=== PATIENT | male | born 1965 | race Caucasian/White ===

== ENCOUNTER 2024-09-30 10:20 | Day surgery (SDC) | payer MEDICARE, OTHER ==
[2024-09-30] MEDS: IV FLUID CONTINUATION 1,000 ML IV ONE ×2 (07:51→10:37)
[~2024-09-30 10:20] MED LIST: LACTATED RINGERS 1,000 ML IV SCH; LIDOCAINE 1% (10MG/ML) FOR IV START INTRADERMA PRN
[2024-09-30] MEDS ORDERED: LIDOCAINE 2% (PF) 20 MG/ML 5 ML VIAL ONE (11:18)
[2024-09-30] MEDS ORDERED: fentaNYL (PF) 50 MCG/ML 2 ML AMP ONE (11:18)
[2024-09-30] MEDS ORDERED: PROPOFOL 10 MG/ML 20 ML VIAL IV ONE (11:18)
--- NOTE | 2024-09-30 11:33 | P.PCN ---
Date of Procedure: 09/30/24 Procedure(s) Performed: PREOPERATIVE DIAGNOSIS: Malfunctioning PEG tube, dysphagia, malnutrition POSTOPERATIVE DIAGNOSIS: Same PROCEDURE: EGD with PEG tube replacement ANESTHESIA: MAC SURGEON: Daniel Oneill M.D. SPECIMENS: None ENDOSCOPIC PROCEDURE: The patient was placed on the endoscopy table in the left decubitus position. The Olympus gastroscope was inserted in the oropharynx and passed under direct visualization to the third portion of the duodenum. The duodenum was free of abnormalities or obstruction. The pylorus was patent. The patient's previous PEG tube was present in the anterior aspect of the antrum. This was removed without difficulty. Using that same opening a new nonballoon 2 0 Icelandic replacement tube was inserted. The clamp and the dual port feeding adapter was applied. The bolster was tightened appropriately. The proximal stomach appeared normal. The patient's esophagus had retained food like material within it but otherwise normal. The patient was taken to the recovery room in stable condition per anesthesia guidelines. RECOMMENDATIONS: Resume diet and tube feeds.
[2024-09-30 12:42] VITALS: PULSE 45
[2024-09-30 12:54] VITALS: BP 147/82; RESP 18
== END 2024-09-30 13:00 | disposition home or self-care (01) ==
LOC: ORWHC2ENDO 10:20
PROVIDERS: ATTEND Surgery
DX: K94.23 Gastrostomy malfunction (principal); K21.9 Gastro-esophageal reflux disease without esophagitis; C06.9 Malignant neoplasm of mouth, unspecified; I10 Essential (primary) hypertension; F41.9 Anxiety disorder, unspecified; Z87.891 Personal history of nicotine dependence; Z85.01 Personal history of malignant neoplasm of esophagus; Z88.6 Allergy status to analgesic agent; Z79.899 Other long term (current) drug therapy
CPT/HCPCS: 43246; J3010; J2704; J2003

== ENCOUNTER 2025-02-04 00:47 | Inpatient (IN) | payer MEDICARE, OTHER ==
--- NOTE | 2025-02-04 01:00 | ED ---
SOB HPI - General Chief Complaint: Shortness of Breath Stated Complaint: LUCILA Time Seen by Provider: 02/04/25 00:50 Source: patient, RN notes reviewed, old records reviewed Mode of arrival: EMS Limitations: no limitations - History of Present Illness Initial Comments: This is a 59-year-old male to ER for evaluation recent hospital admission at other facility was significant for pneumonia. Patient's breathing history of with low oxygen at home requiring increased oxygen requirements patient is on significant shortness of breath without chest pain denying current fevers MD Complaint: shortness of breath, "asthma attack" -: days(s) Severity: severe Severity scale (1-10): 9 Consistency: constant Improves With: nothing Worsens With: exertion Known History Of: COPD, recurrent pneumonia, other (History of cancer) Context: recent URI, recent illness Associated Symptoms: cough, sputum production Treatments Prior to Arrival: oxygen - Related Data Home Medications Medication Instructions Recorded Confirmed buPROPion HCL [Wellbutrin XL] 300 mg PO HS 01/30/14 02/04/25 Escitalopram [Lexapro] 20 mg PO HS 04/16/23 02/04/25 MORPHINE ORAL ARIAN CONC 20mg/mL 5 mg PO Q6HR PRN 04/16/23 02/04/25 [Roxanol Oral Soln Conc 20MG/ML] Morphine Sulfate [Ms Contin] 30 mg PO BID 04/16/23 02/04/25 Bisoprolol-Hctz 10-6.25 mg [Ziac 1 tab PO BID 09/30/24 02/04/25 10-6.25 MG] ARIPiprazole [Abilify] 2 mg PO HS 02/04/25 02/04/25 Apixaban [Eliquis] 5 mg PO BID 02/04/25 02/04/25 Morphine Sulfate ER [Ms Contin] 15 mg PO BID 02/04/25 02/04/25 QUEtiapine [SEROquel] 25 mg PO HS 02/04/25 02/04/25 Allergies Allergy/AdvReac Type Severity Reaction Status Date / Time duloxetine [From Cymbalta] AdvReac Confusion Verified 02/04/25 09:54 Review of Systems ROS Statement: Those systems with pertinent positive or pertinent negative responses have been documented in the HPI. ROS Other: All systems not noted in ROS Statement are negative. Past Medical History Past Medical History: Cancer, GERD/Reflux, Hypertension Additional Past Medical History / Comment(s): HX ORAL CANCER 2009, HIATAL HERNIA cancer esophagus ge junction peg tube inserted feb 2022. FAMILY HHX UNKNOWN-PT ADOPTED infusions immunotherapy keytruda History of Any Multi-Drug Resistant Organisms: None Reported Past Surgical History: Back Surgery, Cholecystectomy, Hernia Repair, Orthopedic Surgery Additional Past Surgical History / Comment(s): EGD, ORAL SURGERY FOR CANCER WITH LYMPHNODES REMOVED FROM MOUTH AND NECK peg placed 2021 rt shoulder roatator cuff repair. Past Anesthesia/Blood Transfusion Reactions: No Reported Reaction Additional Past Anesthesia/Blood Transfusion Reaction / Comment(s): no blood transfusion Past Psychological History: Depression Smoking Status: Former smoker - Past Family History Father Family Medical History: Unable to Obtain Additional Family Medical History / Comment(s): adopted General Exam Limitations: no limitations General appearance: alert, in no apparent distress, anxious, in distress Head exam: Present: atraumatic, normocephalic, normal inspection Eye exam: Present: normal appearance, PERRL, EOMI. Absent: scleral icterus, conjunctival injection, periorbital swelling ENT exam: Present: normal exam, mucous membranes moist Neck exam: Present: normal inspection. Absent: tenderness, meningismus, lymphadenopathy Respiratory exam: Present: respiratory distress, wheezes, rhonchi, accessory muscle use, decreased breath sounds, prolonged expiratory. Absent: rales, stridor Cardiovascular Exam: Present: regular rate, normal rhythm, normal heart sounds. Absent: systolic murmur, diastolic murmur, rubs, gallop, clicks GI/Abdominal exam: Present: soft, normal bowel sounds. Absent: distended, tenderness, guarding, rebound, rigid Extremities exam: Present: normal inspection, full ROM, normal capillary refill. Absent: tenderness, pedal edema, joint swelling, calf tenderness Back exam: Present: normal inspection Neurological exam: Present: alert, oriented X3, CN II-XII intact Psychiatric exam: Present: normal affect, normal mood Skin exam: Present: warm, dry, intact, normal color. Absent: rash Course Vital Signs 02/04/25 02/04/25 02/04/25 00:48 00:56 01:22 Temperature 99.4 F Pulse Rate 87 87 Respiratory 18 18 Rate Blood Pressure 125/89 O2 Sat by Pulse 92 L Oximetry 02/04/25 02/04/25 02/04/25 01:33 02:00 05:07 Temperature Pulse Rate 84 92 79 Respiratory 18 Rate Blood Pressure 136/89 O2 Sat by Pulse 97 Oximetry 02/04/25 02/04/25 02/04/25 05:17 06:00 07:26 Temperature 99.7 F H Pulse Rate 80 79 76 Respiratory 18 18 Rate Blood Pressure 110/71 105/69 O2 Sat by Pulse 96 94 L Oximetry - Reevaluation(s) Reevaluation #1: 02/04/25 04:48 Medical records reviewed Reevaluation #2: 02/04/25 04:48 Oxygen improved with breathing treatments and supplemental O2 Reevaluation #3: 02/04/25 04:48 Patient informed of results and questions answered Reevaluation #4: Was pt. sent in by a medical professional or institution ([facility] Lino, [employer], urgent care, hospital, or long-term...) When possible be specific @ -no Did you speak to anyone other than the patient for history (EMS, parent, family, police, friend...)? What history was obtained from this source @ -no Did you review nursing and triage notes (agree or disagree)? Why? @ -agree Are old charts reviewed (outside hosp., previous admission, EMS record, old EKG, old radiological studies, urgent care reports/EKG's, long-term records)? Report findings @ -yes Differential Diagnosis (chest pain, altered mental status, abdominal pain women, abdominal pain men, vaginal bleeding, weakness, fever, dyspnea, syncope, headache, dizziness, GI bleed, back pain, seizure, CVA, palpatations, mental health, musculoskeletal)? @ -prior EKG interpreted by me (3pts min.). @ -yes X-rays interpreted by me (1pt min.). @ -yes positive for pneumonia CT interpreted by me (1pt min.). @ -Yes positive for pneumonia multilobar pneumonia U/S interpreted by me (1pt. min.). @ -no What testing was considered but not performed or refused? (CT, X-rays, U/S, labs)? Why? @ -none What meds were considered but not given or refused? Why? @ -none Did you discuss the management of the patient with other professionals (pr ofessionals i.e. Dr., PA, [employer], lab, RT, psych nurse, older adult social work specialist, reproduction machine loader, teacher, guest relation officer, caser up)? Give summary @ -no Was smoking cessation discussed for >3mins.? @ -no Was critical care preformed (if so, how long)? @ -yes31 Were there social determinants of health that impacted care today? How? (Homelessness, low income, unemployed, alcoholism, drug addiction, transportation, low edu. Level, literacy, decrease access to med. care, fpc, rehab)? @ -none Was there de-escalation of care discussed even if they declined (Discuss DNR or withdrawal of care, Hospice)? DNR status @ -no What co-morbidities impacted this encounter? (DM, HTN, Smoking, COPD, CAD, Cancer, CVA, ARF, Chemo, Hep., AIDS, mental health diagnosis, sleep apnea, morbid obesity)? @ -none Was patient admitted / discharged? Hospital course, mention meds given and route, prescriptions, significant lab abnormalities, going to OR and other pertinent info. @ - 59 male to ER with persistent bilateral multilobar pneumonia. Patient will admit for pulmonology evaluation IV antibiotics significant hypoxia with COPD Admitted Undiagnosed new problem with uncertain prognosis? @ -no Drug Therapy requiring intensive monitoring for toxicity (Heparin, Nitro, Insulin, Cardizem)? @ -no Were any procedures done? @ -no Diagnosis/symptom? @ -Hypoxia COPD multilobar pneumonia Acute, or Chronic, or Acute on Chronic? @ -Acute Uncomplicated (without systemic symptoms) or Complicated (systemic symptoms)? @ -Complicated Side effects of treatment? @ -no Exacerbation, Progression, or Severe Exacerbation? @ -exacerbation Poses a threat to life or bodily function? How? (Chest pain, [place], [place], pneumonia, PE, COPD, DKA, ARF, appy, cholecystitis, CVA, Diverticulitis, Homicidal, Suicidal, threat to staff... and all critical care pts) @ -yes hypoxic respiratory distress Reevaluation #5: Differential Dyspnea: Coronary syndrome, arrhythmia, tamponade, asthma, COPD, pulmonary embolism, p neumonia, pneumothorax, pulmonary effusion, anaphylaxis, diabetic ketoacidosis, flailed chest, pulmonary contusion, diaphragmatic rupture, anemia, neuromuscular, this is not meant to be an all-inclusive list. - Consultations Consultation #1: Spoke with [facility] who agrees to admit this patient Medical Decision Making - Medical Decision Making 59 male to ER with persistent bilateral multilobar pneumonia. Patient will admit for pulmonology evaluation IV antibiotics significant hypoxia with COPD - Lab Data Result diagrams: 02/09/25 04:23 02/09/25 04:23 Lab Results 02/04/25 02/04/25 02/04/25 Range/Units 00:57 00:57 00:57 WBC 11.18 H (4.50-10.00) 10*3/uL RBC 4.97 (4.40-5.60) 10*6/uL Hgb 14.2 (13.0-17.0) g/dL Hct 41.5 (39.6-50.0) % MCV 83.5 (80.0-97.0) fL MCH 28.6 (27.0-32.0) pg MCHC 34.2 (32.0-37.0) g/dL Plt Count 224 (140-440) 10*3/uL MPV 9.4 L (9.5-12.2) fL Immature Gran % (Auto) 0.4 % Neutrophils % 81.9 % Lymphocytes % 9.1 % Monocytes % 7.6 % Eosinophils % 0.8 % Basophils % 0.2 % Immature Gran # 0.04 (0.00-0.04) 10*3/uL Neutrophils # 9.16 H (1.80-7.70) 10*3/uL Lymphocytes # 1.02 (0.90-5.00) 10*3/uL Monocytes # 0.85 (0.20-1.00) 10*3/uL Eosinophils # 0.09 (0.04-0.35) 10*3/uL Basophils # 0.02 (0.00-0.10) 10*3/uL PT 11.0 (10.0-12.5) sec INR 1.0 (<1.2) APTT 23.1 (22.0-30.0) sec Sodium 132 L (137-145) mmol/L Potassium 4.1 (3.5-5.1) mmol/L Chloride 96 L (98-107) mmol/L Carbon Dioxide 26 (22-30) mmol/L Anion Gap 10 mmol/L BUN 21 H (9-20) mg/dL Creatinine 0.54 L (0.66-1.25) mg/dL Est GFR (CKD-EPI)AfAm >90 (>60 ml/min/1.73 sqM) Est GFR (CKD-EPI)NonAf >90 (>60 ml/min/1.73 sqM) Glucose 112 H (74-99) mg/dL Lactic Ac Sepsis Rflx Plasma Lactic Acid Sen (0.7-2.0) mmol/L Calcium 9.1 (8.4-10.2) mg/dL Magnesium 1.9 (1.6-2.3) mg/dL Total Bilirubin 1.5 H (0.2-1.3) mg/dL AST 33 (17-59) U/L ALT 18 (4-49) U/L Alkaline Phosphatase 138 H (38-126) U/L Troponin I (0.000-0.034) ng/mL NT-Pro-B Natriuret Pep 303 pg/mL Total Protein 6.2 L (6.3-8.2) g/dL Albumin 3.5 (3.5-5.0) g/dL 02/04/25 02/04/25 02/04/25 Range/Units 00:57 00:57 02:11 WBC (4.50-10.00) 10*3/uL RBC (4.40-5.60) 10*6/uL Hgb (13.0-17.0) g/dL Hct (39.6-50.0) % MCV (80.0-97.0) fL MCH (27.0-32.0) pg MCHC (32.0-37.0) g/dL Plt Count (140-440) 10*3/uL MPV (9.5-12.2) fL Immature Gran % (Auto) % Neutrophils % % Lymphocytes % % Monocytes % % Eosinophils % % Basophils % % Immature Gran # (0.00-0.04) 10*3/uL Neutrophils # (1.80-7.70) 10*3/uL Lymphocytes # (0.90-5.00) 10*3/uL Monocytes # (0.20-1.00) 10*3/uL Eosinophils # (0.04-0.35) 10*3/uL Basophils # (0.00-0.10) 10*3/uL PT (10.0-12.5) sec INR (<1.2) APTT (22.0-30.0) sec Sodium (137-145) mmol/L Potassium (3.5-5.1) mmol/L Chloride (98-107) mmol/L Carbon Dioxide (22-30) mmol/L Anion Gap mmol/L BUN (9-20) mg/dL Creatinine (0.66-1.25) mg/dL Est GFR (CKD-EPI)AfAm (>60 ml/min/1.73 sqM) Est GFR (CKD-EPI)NonAf (>60 ml/min/1.73 sqM) Glucose (74-99) mg/dL Lactic Ac Sepsis Rflx Y Plasma Lactic Acid Sen 2.7 H* (0.7-2.0) mmol/L Calcium (8.4-10.2) mg/dL Magnesium (1.6-2.3) mg/dL Total Bilirubin (0.2-1.3) mg/dL AST (17-59) U/L ALT (4-49) U/L Alkaline Phosphatase (38-126) U/L Troponin I <0.012 (0.000-0.034) ng/mL NT-Pro-B Natriuret Pep pg/mL Total Protein (6.3-8.2) g/dL Albumin (3.5-5.0) g/dL 02/04/25 Range/Units 04:20 WBC (4.50-10.00) 10*3/uL RBC (4.40-5.60) 10*6/uL Hgb (13.0-17.0) g/dL Hct (39.6-50.0) % MCV (80.0-97.0) fL MCH (27.0-32.0) pg MCHC (32.0-37.0) g/dL Plt Count (140-440) 10*3/uL MPV (9.5-12.2) fL Immature Gran % (Auto) % Neutrophils % % Lymphocytes % % Monocytes % % Eosinophils % % Basophils % % Immature Gran # (0.00-0.04) 10*3/uL Neutrophils # (1.80-7.70) 10*3/uL Lymphocytes # (0.90-5.00) 10*3/uL Monocytes # (0.20-1.00) 10*3/uL Eosinophils # (0.04-0.35) 10*3/uL Basophils # (0.00-0.10) 10*3/uL PT (10.0-12.5) sec INR (<1.2) APTT (22.0-30.0) sec Sodium (137-145) mmol/L Potassium (3.5-5.1) mmol/L Chloride (98-107) mmol/L Carbon Dioxide (22-30) mmol/L Anion Gap mmol/L BUN (9-20) mg/dL Creatinine (0.66-1.25) mg/dL Est GFR (CKD-EPI)AfAm (>60 ml/min/1.73 sqM) Est GFR (CKD-EPI)NonAf (>60 ml/min/1.73 sqM) Glucose (74-99) mg/dL Lactic Ac Sepsis Rflx Plasma Lactic Acid Sen 1.8 (0.7-2.0) mmol/L Calcium (8.4-10.2) mg/dL Magnesium (1.6-2.3) mg/dL Total Bilirubin (0.2-1.3) mg/dL AST (17-59) U/L ALT (4-49) U/L Alkaline Phosphatase (38-126) U/L Troponin I (0.000-0.034) ng/mL NT-Pro-B Natriuret Pep pg/mL Total Protein (6.3-8.2) g/dL Albumin (3.5-5.0) g/dL - EKG Data -: EKG Interpreted by Me (EKG is sinus 79 [place] 155 QRS 97 QTc 395) - Radiology Data Radiology results: report reviewed (Chest x-ray CTA chest positive multilobar pneumonia), image reviewed Critical Care Time Critical Care Time: Yes Total Critical Care Time: 31 Disposition Clinical Impression: Esophageal cancer, stage IV, Acute exacerbation of chronic obstructive pul monary disease, Bilateral pneumonia, Lobar pneumonia Disposition: ADMITTED IP TO THIS HOSP Condition: Serious Is patient prescribed a controlled substance at d/c from ED?: No Time of Disposition: 04:50
[2025-02-04 01:11] LABS: Basophils # (A) 0.02 10*3/uL (0.00-0.10); Basophils % (A) 0.2 %; Eosinophils # (A) 0.09 10*3/uL (0.04-0.35); Eosinophils % (A) 0.8 %; HCT 41.5 % (39.6-50.0); HGB 14.2 g/dL (13.0-17.0); Lymphocytes # (A) 1.02 10*3/uL (0.90-5.00); Lymphocytes % (A) 9.1 %; MCH 28.6 pg (27.0-32.0); MCHC 34.2 g/dL (32.0-37.0); MCV 83.5 fL (80.0-97.0); Monocytes # (A) 0.85 10*3/uL (0.20-1.00); Monocytes % (A) 7.6 %; Neutrophils # (A) 9.16 10*3/uL (1.80-7.70); Neutrophils % (A) 81.9 %; Platelet Count 224 10*3/uL (140-440); RBC 4.97 10*6/uL (4.40-5.60); RDW 13.4 % (11.5-14.5); WBC 11.18 10*3/uL (4.50-10.00)
[2025-02-04] MEDS: IPRATROPIUM-ALBUTEROL 3 ML NEB INHALATION STA ×2 (01:19→04:58)
[2025-02-04 01:54] LABS: INR 1.0 (<1.2); Partial Thromboplastin Time 23.1 sec (22.0-30.0); Prothrombin Time 11.0 sec (10.0-12.5)
[2025-02-04 01:55] LABS: ALT 18 U/L (4-49); AST 33 U/L (17-59); African American GFR (CKD) >90 (>60 ml/min/1.73 sqM); Albumin 3.5 g/dL (3.5-5.0); Alkaline Phosphatase 138 U/L (38-126); Anion Gap 10 mmol/L; Blood Urea Nitrogen 21 mg/dL (9-20); Calcium 9.1 mg/dL (8.4-10.2); Carbon Dioxide 26 mmol/L (22-30); Chloride 96 mmol/L (98-107); Glucose 112 mg/dL (74-99); Magnesium 1.9 mg/dL (1.6-2.3); Non-African American GFR(CKD) >90 (>60 ml/min/1.73 sqM); Sodium 132 mmol/L (137-145); Total Protein 6.2 g/dL (6.3-8.2)
[2025-02-04 02:03] LABS: NT-Pro-B-Type Natriuretic Pept 303 pg/mL
[2025-02-04 02:09] LABS: Potassium 4.1 mmol/L (3.5-5.1)
[2025-02-04] MEDS: LEVOFLOXACIN 750MG-D5W PMX 750 MG in DEXTROSE/WATER 1 150ML.BAG IVPB STA (04:05)
[2025-02-04] MEDS: SODIUM CHLORIDE 0.9% 1,000 ML IV ONE (04:06)
--- NOTE | 2025-02-04 04:29 | XR ---
EXAM: XR Chest, 2 Views CLINICAL HISTORY: Difficulty breathing TECHNIQUE: Frontal and lateral views of the chest. COMPARISON: No relevant prior studies available. FINDINGS: Lungs: Irregular airspace disease in the perihilar regions, right- [id number], with extension to the right upper lobe and left lower lobe. Pleural space: Unremarkable. No pneumothorax. No large pleural effusion. Heart: Unremarkable. No cardiomegaly. Mediastinum: Unremarkable. No significant abnormality identified. The trachea is midline. Bones/joints: Unremarkable. No acute fracture. IMPRESSION: Irregular airspace disease in the perihilar regions, [id number]- left, with extension to the right upper lobe and left lower lobe. The primary consideration is pneumonia. Follow up to resolution is recommended. No pleural effusion or pneumothorax.
[2025-02-04] MEDS: SODIUM CHLORIDE 0.9% 500 ML 500 ML IV ONE (04:39)
--- NOTE | 2025-02-04 04:42 | CT ---
EXAM: CT Angiography Chest With Intravenous Contrast CLINICAL HISTORY: ITS.REASON CT Reason: sob TECHNIQUE: Axial computed tomographic angiography images of the chest with intravenous contrast. CTDI is 16.3 mGy and DLP is 302.8 mGy-cm. This CT exam was performed using one or more of the following dose reduction techniques: automated exposure control, adjustment of the mA and/or kV according to patient size, and/or use of iterative reconstruction technique. MIP reconstructed images were created and reviewed. COMPARISON: No relevant prior studies available. FINDINGS: Pulmonary arteries: Unremarkable. No pulmonary embolism. Aorta: Atherosclerotic changes of the aorta. No thoracic aortic aneurysm. Lungs: Extensive bilateral airspace consolidations, concerning for multilobar pneumonia. There is a chronic underlying appearance with bronchiectasis, concerning for underlying lung scarring. Pleural space: Unremarkable. No significant effusion. No pneumothorax. Heart: Unremarkable. No cardiomegaly. No significant pericardial effusion. No evidence of RV dysfunction. Bones/joints: Degenerative changes of the spine. No acute fracture. No dislocation. Soft tissues: Unremarkable. Lymph nodes: Unremarkable. No enlarged lymph nodes. Gallbladder and bile ducts: Cholecystectomy. IMPRESSION: 1. No pulmonary embolism. 2. Extensive bilateral airspace consolidations, concerning for multilobar pneumonia. Associated, chronic underlying appearance with bronchiectasis, concerning for underlying lung scarring.
[2025-02-04] MEDS ORDERED: ACETAMINOPHEN TAB 325 MG TAB PO PRN (04:45)
[2025-02-04] MEDS ORDERED: PNEUMONIA PROTOCOL UTILIZED 1 EACH MISC PO PRN (04:45)
[2025-02-04] MEDS: SODIUM CHLORIDE 0.9% 1,000 ML IV SCH (05:04)
[2025-02-04] MEDS: PIPERACILLIN-TAZOBACTAM 3.375 GM in SODIUM CHLORIDE 0.9% 100 ML IVPB ONE (06:10)
--- NOTE | 2025-02-04 06:38 | P.CNPUL ---
History of Present Illness Consult date: 02/04/25 Requesting physician: Tru Abbott Reason for consult: pneumonia Chief complaint: Shortness of breath History of present illness: Patient is a 59-year-old male with past medical history significant for COPD, former heavy tobacco use, former alcohol abuse, remote oral cancer with previous reconstructive surgery. More recently, diagnosed with metastatic gastroesophageal cancer approximately 3 years ago. Status post chemoradiation, currently maintained on Keytruda. His oncologist is Dr. Rios. He has chronic dysphagia and has a PEG tube. Still has oral intake. Patient brought in by EMS early this morning. He had significant shortness of breath. Reportedly, released from [facility] approximately 1-1/2 weeks ago with bilateral pneumonia. He finished his antibiotics outpatient. Also, diagnosed with pulmonary embolism and started on Eliquis. Workup in the emergency department including a chest CT angiogram which did not show any evidence of pulmonary embolism. There is extensive bilateral airspace consolidation concerning for multilobar pneumonia. Chronic underlying appearance with bronchiectasis concerning for underlying lung scarring and probable post- treatment changes. No prior imaging available for comparison. CBC: WBC count 11.18, hemoglobin 14.2, platelets 224. CMP: Sodium 132, potassium 4.1, chloride 96, serum bicarb 26, BUN 21, creatinine 0.54, glucose 112. Lactic 2.7 down to 1.8. LFTs unremarkable. Troponin less than 0.012. NT proBNP 303. Patient currently being evaluated emergency department. Nontoxic appearance. States that shortness of breath developed in the last 24 hours. No significant coughing. No significant sputum production or hemoptysis. No fevers or chills. He has chronic issues with dysphagia. Has PEG tube, but still has oral intake. He has been started empirically on Levaquin and Zosyn in the ED. Nonlocalized chest pain. No palpitations, syncopal events, lower extremity edema. Normal saline infusing at 100 mL/h. Current vital signs: Temperature 99.4 F, heart rate 92 bpm, blood pressure 136/89 mmHg, nontachypneic, SpO2 recorded at 97% on 4 L/min nasal cannula. Review of Systems REVIEW OF SYSTEMS: CONSTITUTIONAL: Denies any recent significant weight loss or weight gain. EYES: Denies change in vision. EARS, NOSE, MOUTH, THROAT: Denies headaches, sinus pressure/pain, rhinorrhea, postnasal drip, sore throat CARDIOVASCULAR: See HPI RESPIRATORY: See HPI GASTROINTESTINAL: Denies change in appetite, abdominal pain, nausea and vomiting, or diarrhea GENITOURINARY: Denies hematuria, denies infections. MUSKULOSKELETAL: Denies pain, denies swelling. INTEGUMENTARY: Denies rash, denies eczema. NEUROLOGICAL: Denies recent memory loss, no recent seizure activity. PSYCHIATRIC: Denies anxiety, denies depression. HEMATOLOGIC/LYMPHATIC: Denies anemia, denies enlarged lymph node Past Medical History Past Medical History: Cancer, COPD, GERD/Reflux, Hypertension, Pulmonary Embolus (PE) Additional Past Medical History / Comment(s): HX ORAL CANCER 2009, HIATAL HERNIA cancer esophagus ge junction peg tube inserted feb 2022. FAMILY HHX UNKNOWN-PT ADOPTED infusions immunotherapy keytruda History of Any Multi-Drug Resistant Organisms: None Reported Past Surgical History: Back Surgery, Cholecystectomy, Hernia Repair, Orthopedic Surgery Additional Past Surgical History / Comment(s): EGD, ORAL SURGERY FOR CANCER WITH LYMPHNODES REMOVED FROM MOUTH AND NECK peg placed 2021 rt shoulder roatator cuff repair. Past Anesthesia/Blood Transfusion Reactions: No Reported Reaction Additional Past Anesthesia/Blood Transfusion Reaction / Comment(s): no blood transfusion Past Psychological History: Depression Smoking Status: Former smoker Past Alcohol Use History: Abuse - Past Family History Father Family Medical History: Unable to Obtain Additional Family Medical History / Comment(s): adopted Medications and Allergies Home Medications Medication Instructions Recorded Confirmed Type buPROPion HCL [Wellbutrin XL] 300 mg PO HS 01/30/14 02/04/25 History Escitalopram [Lexapro] 20 mg PO HS 04/16/23 02/04/25 History MORPHINE ORAL ARIAN CONC 20mg/mL 5 mg PO Q6HR PRN 04/16/23 02/04/25 History [Roxanol Oral Soln Conc 20MG/ML] Morphine Sulfate [Ms Contin] 30 mg PO BID 04/16/23 02/04/25 History Bisoprolol-Hctz 10-6.25 mg [Ziac 1 tab PO BID 09/30/24 02/04/25 History 10-6.25 MG] ARIPiprazole [Abilify] 2 mg PO HS 02/04/25 02/04/25 History Apixaban [Eliquis] 5 mg PO BID 02/04/25 02/04/25 History Morphine Sulfate ER [Ms Contin] 15 mg PO BID 02/04/25 02/04/25 History QUEtiapine [SEROquel] 25 mg PO HS 02/04/25 02/04/25 History Allergies Allergy/AdvReac Type Severity Reaction Status Date / Time duloxetine [From Cymbalta] AdvReac Confusion Verified 02/04/25 09:54 Physical Exam Vitals: Vital Signs Temp Pulse Resp BP Pulse Ox 02/04/25 05:17 80 02/04/25 05:07 79 02/04/25 02:00 92 18 136/89 97 02/04/25 01:33 84 02/04/25 01:22 87 02/04/25 00:56 18 02/04/25 00:48 99.4 F 87 18 125/89 92 L Intake and Output 02/03/25 02/03/25 02/04/25 14:59 22:59 06:59 Other: Weight 68.039 kg GENERAL EXAM: Alert, 59-year-old male, nontoxic appearance, comfortable in no apparent distress. HEAD: Normocephalic and atraumatic EYES: Normal reaction of pupils, equal size. NOSE: Clear with pink turbinates. THROAT: No erythema or exudates. NECK: No masses, no JVD. CHEST: No chest wall deformity. LUNGS: Equal air entry with scattered rhonchi. On 4 L/min nasal cannula. No conversational dyspnea or accessory muscle use.. CVS: S1 and S2 normal with no audible murmur, regular rhythm. No extra heart sounds ABDOMEN: PEG tube in place, active bowel sounds, no hepatosplenomegaly, no guarding or rigidity. SPINE: No scoliosis or deformity SKIN: No rashes CENTRAL NERVOUS SYSTEM: No focal deficits, tone is normal in all 4 extremities. EXTREMITIES: There is no peripheral edema, clubbing, or cyanosis. Peripheral pulses are intact. Results - Laboratory Findings CBC and BMP: 02/04/25 00:57 02/04/25 00:57 PT/INR, D-dimer PT 11.0 sec (10.0-12.5) 02/04/25 00:57 INR 1.0 (<1.2) 02/04/25 00:57 Abnormal lab findings: Abnormal Labs 02/04/25 02/04/25 02/04/25 00:57 00:57 00:57 WBC 11.18 H MPV 9.4 L Neutrophils # 9.16 H Sodium 132 L Chloride 96 L BUN 21 H Creatinine 0.54 L Glucose 112 H Plasma Lactic Acid Sen 2.7 H* Total Bilirubin 1.5 H Alkaline Phosphatase 138 H Total Protein 6.2 L - Diagnostic Findings Chest x-ray: image reviewed CT scan - chest: image reviewed Assessment and Plan Assessment: Acute hypoxemic respiratory failure, currently on 4 L/min nasal cannula, chest CT angiogram which did not show any evidence of pulmonary embolism. There is extensive bilateral airspace consolidation, concerning for multilobar pneumonia. Chronic underlying appearance with bronchiectasis concerning for underlying lung scarring and probable post-treatment changes. No prior imaging available for comparison. History of metastatic esophageal cancer status post chemoradiation, currently maintained on immunotherapy with Keytruda Remote history of oral cancer with previous reconstructive surgery Chronic dysphagia, with PEG tube History of pulmonary embolism, anticoagulated on Eliquis Chronic obstructive pulmonary disease Hypertension Former heavy tobacco use Former alcohol abuse Anxiety/depression Plan: Continue supplemental oxygen, wean as tolerated Continue albuterol nebs as needed Continue empiric antibiotics Check procalcitonin level Obtain swallow evaluation Consult dietary for tube feeds Continue Eliquis once verified Case will be reviewed with Dr. De La Torre, further recommendations to follow I have personally seen and examined the patient, performed the documentation and the assessment and plan as written. Number of minutes spent on the visit:20 This is a joint evaluation that was done along with the nurse practitioner. This evaluation was done at 35 minutes. The patient is known to have COPD, a previous smoker and previous history of esophageal cancer treated with chemoradiation therapy and the patient has been on Keytruda for the past 3 years. His radiation therapy was offered at time of diagnosis and the patient s tates that his disease is currently under remission. He was hospitalized at [facility] approximately 10 days ago. He was told to have pneumonia and he was given antibiotics and steroids and he was discharged home. Within 24 hours to 48 hours of his discharge, the patient symptoms recur and the patient has cough and congestion, unable to bring up much sputum and the patient is having exertional dyspnea. He came in [facility] and a CT of the chest was done. Noted the patient has a previous history of pulmonary embolism and he is maintained on anticoagulation. The current CTA of the chest showed no signs of any PE. There is extensive bilateral airspace consolidation concerning for multilobar pneumonia. There is also evidence of bronchiectasis and scarring of the lungs and this is more prominent dominant in the upper lobes and suprahilar area bilaterally and findings seem to be chronic although is superimposed infection cannot be completely ruled out. At the same time, the CAT scan showed a bulky subcarinal lymphadenopathy with some central calcification. The white cell count 11.1. Hemoglobin is 14.2. Normal coagulation profile. Normal renal function. Procalcitonin level is at 0.15. The viral screen has been negative. The patient was started on IV Zosyn. Rest of the medications are essentially unchanged. He is currently on oxygen at 4 L with a pulse ox of 90% My plan is to obtain a comparison of the current CAT scan with a previous CAT scan that were done i at [facility] and assess the progression of his disease process. There is a potential of pneumonia on top of his chronic bronchiectatic changes and scarring in the upper lobes. There may be some radiation-induced scarring in the upper lobes bilaterally. Disease progression including malignant progression of his esophageal cancer cannot be completely ruled out as the patient also has a bulky subcarinal lymph node. Based on the comparison, we will make a further decision if bronchoscopy and endobronchial ultrasound is needed. Will discuss the case with medical oncology. Also, we will keep anticoagulation for now. Continue oxygen supplementation. No report ed aspiration. Possibility of immunotherapy induced pneumonitis is considered to be less likely in this situation. Time with Patient: Greater than 30
[2025-02-04 07:15] LABS: RSV Not Detected (Not Detectd)
[2025-02-04] MEDS: ALBUTEROL NEBULIZED 2.5 MG/3 ML INHALATION PRN (08:22)
[2025-02-04] MEDS: MORPHINE SULFATE ER 15 MG TABLET PO SCH (09:43)
--- NOTE | 2025-02-04 13:52 | P.HPIM ---
History of Present Illness 59-year-old male known to me from his previous hospitalization at [facility] came in with complaints of shortness of breath cough without any significant sputum production. Patient had a recent pulmonary embolism followed by second hospitalization for pneumonia patient was given antibiotics and systemic steroids were discharged home. Patient appears to have had bilateral airspace consolidation and multilobar pneumonia. Patient came back here with complaints of shortness of breath. Patient does not have any fever, does have mild leukocytosis patient had a CT of the chest which showed bronchiectatic changes in the right lung with possibly mild infiltrate with air bronchogram below that. Patient was started on levofloxacin and Zosyn in the ER. Patient had a procalcitonin which is not elevated. Patient had any fever or chills. Patient had a history of esophageal cancer status post chemoradiation therapy patient is still on Keytruda. Patient is mildly hyponatremic at 132. REVIEW OF SYSTEMS: All other systems are negative except those mentioned in the HPI PHYSICAL EXAMINATION: GENERAL: The patient is alert and oriented x3, not in any acute distress. Well developed, well nourished. HEENT: Pupils are round and equally reacting to light. EOMI. No scleral icterus. No conjunctival pallor. Normocephalic, atraumatic. No pharyngeal erythema. No thyromegaly. CARDIOVASCULAR: S1 and S2 present. No murmurs, rubs, or gallops. PULMONARY: Chest is clear to auscultation, no wheezing or crackles. ABDOMEN: Soft, nontender, nondistended, normoactive bowel sounds. No palpable organomegaly. MUSCULOSKELETAL: No joint swelling or deformity. EXTREMITIES: No cyanosis, clubbing, or pedal edema. NEUROLOGICAL: Gross neurological examination did not reveal any focal deficits. SKIN: No rashes. Labs and imaging data was reviewed by me. Assessment and plan -Acute hypoxic respiratory failure requiring 4 L of oxygen: Patient has bronchiectasis and possibly radiation induced lung damage rather than pneumonia. Patient has mild airspace consolidation probably from his previous pneumonia. Will discontinue levofloxacin continue with Zosyn infectious diseases following the patient. - Metastatic esophageal cancer status post chemoradiation therapy presently on immunotherapy with Keytruda - - Chronic dysphagia for which patient has a PEG tube - Mild leukocytosis can be reactive or can be secondary to pneumonia or bronchiectasis - COPD without any significant acute exacerbation - Hypertension - Anxiety/depression Had a history of COPD and alcohol abuse which are not issues now Recent pulmonary embolism for which patient is on Eliquis which was resumed Past Medical History Past Medical History: Cancer, COPD, GERD/Reflux, Hypertension, Pulmonary Embolus (PE) Additional Past Medical History / Comment(s): HX ORAL CANCER 2009, HIATAL HERNIA cancer esophagus ge junction peg tube inserted feb 2022. FAMILY HHX UNKNOWN-PT ADOPTED infusions immunotherapy keytruda History of Any Multi-Drug Resistant Organisms: None Reported Past Surgical History: Back Surgery, Cholecystectomy, Hernia Repair, Orthopedic Surgery Additional Past Surgical History / Comment(s): EGD, ORAL SURGERY FOR CANCER WITH LYMPHNODES REMOVED FROM MOUTH AND NECK peg placed 2021 rt shoulder roatator cuff repair. Past Anesthesia/Blood Transfusion Reactions: No Reported Reaction Additional Past Anesthesia/Blood Transfusion Reaction / Comment(s): no blood transfusion Past Psychological History: Depression Smoking Status: Former smoker Past Alcohol Use History: Abuse - Past Family History Father Family Medical History: Unable to Obtain Additional Family Medical History / Comment(s): adopted Medications and Allergies Home Medications Medication Instructions Recorded Confirmed Type buPROPion HCL [Wellbutrin XL] 300 mg PO HS 01/30/14 02/04/25 History Escitalopram [Lexapro] 20 mg PO HS 04/16/23 02/04/25 History MORPHINE ORAL ARIAN CONC 20mg/mL 5 mg PO Q6HR PRN 04/16/23 02/04/25 History [Roxanol Oral Soln Conc 20MG/ML] Morphine Sulfate [Ms Contin] 30 mg PO BID 04/16/23 02/04/25 History Bisoprolol-Hctz 10-6.25 mg [Ziac 1 tab PO BID 09/30/24 02/04/25 History 10-6.25 MG] ARIPiprazole [Abilify] 2 mg PO HS 02/04/25 02/04/25 History Apixaban [Eliquis] 5 mg PO BID 02/04/25 02/04/25 History Morphine Sulfate ER [Ms Contin] 15 mg PO BID 02/04/25 02/04/25 History QUEtiapine [SEROquel] 25 mg PO HS 02/04/25 02/04/25 History Allergies Allergy/AdvReac Type Severity Reaction Status Date / Time duloxetine [From Cymbalta] AdvReac Confusion Verified 02/04/25 09:54 Physical Exam Vitals: Vital Signs Temp Pulse Pulse Resp BP BP Pulse Ox 02/04/25 12:30 99.7 F H 87 20 132/75 90 L 02/04/25 11:51 78 02/04/25 11:38 76 02/04/25 08:31 95 02/04/25 08:25 95 93 L 02/04/25 08:20 98.3 F 77 20 127/71 90 L 02/04/25 07:26 76 18 105/69 94 L 02/04/25 06:00 99.7 F H 79 18 110/71 96 02/04/25 05:17 80 02/04/25 05:07 79 02/04/25 02:00 92 18 136/89 97 02/04/25 01:33 84 02/04/25 01:22 87 02/04/25 00:56 18 02/04/25 00:48 99.4 F 87 18 125/89 92 L Intake and Output 02/03/25 02/04/25 02/04/25 22:59 06:59 14:59 Output Total 600 Balance -600 Output: Urine 600 Other: Weight 68.039 kg Results CBC & Chem 7: 02/04/25 00:57 02/04/25 00:57 Labs: Abnormal Lab Results - Last 24 Hours (Table) 02/04/25 02/04/25 02/04/25 Range/Units 00:57 00:57 00:57 WBC 11.18 H (4.50-10.00) 10*3/uL MPV 9.4 L (9.5-12.2) fL Neutrophils # 9.16 H (1.80-7.70) 10*3/uL Sodium 132 L (137-145) mmol/L Chloride 96 L (98-107) mmol/L BUN 21 H (9-20) mg/dL Creatinine 0.54 L (0.66-1.25) mg/dL Glucose 112 H (74-99) mg/dL Plasma Lactic Acid Sen 2.7 H* (0.7-2.0) mmol/L Total Bilirubin 1.5 H (0.2-1.3) mg/dL Alkaline Phosphatase 138 H (38-126) U/L Total Protein 6.2 L (6.3-8.2) g/dL
[2025-02-04] MEDS: PIPERACILLIN-TAZOBACTAM 3.375 GM in SODIUM CHLORIDE 0.9% 100 ML IVPB SCH (14:05)
[2025-02-04 19:04] LABS: Basophils # (A) 0.03 X 10*3/uL (0.00-0.10); Basophils % (A) 0.3 %; Eosinophils # (A) 0.06 X 10*3/uL (0.04-0.35); Eosinophils % (A) 0.6 %; HCT 36.3 % (39.6-50.0); HGB 11.7 g/dL (13.0-17.0); Immature Grans, Automated 0.60 %; Lymphocytes # (A) 0.50 X 10*3/uL (0.90-5.00); Lymphocytes % (A) 4.7 %; MCH 28.0 pg (27.0-32.0); MCHC 32.2 g/dL (32.0-37.0); MCV 86.8 FL (80.0-97.0); Monocytes # (A) 0.80 X 10*3/uL (0.20-1.00); Monocytes % (A) 7.5 %; NRBC Per 100 WBC 0 X 10*3/uL (0.00-0.01); Neutrophils # (A) 9.17 X 10*3/uL (1.80-7.70); Neutrophils % (A) 86.3 %; Platelet Count 182 X 10*3/uL (140-440); RBC 4.18 X 10*6/uL (4.40-5.60); RDW 13.8 % (11.5-14.5); WBC 10.62 X 10*3/uL (4.50-10.00)
[2025-02-04] MEDS ORDERED: MORPHINE SULFATE ER 15 MG TABLET PO SCH (21:00)
[2025-02-04] MEDS ORDERED: LEVOFLOXACIN 750MG-D5W PMX 750 MG in DEXTROSE/WATER 1 150ML.BAG IVPB SCH (21:00)
[2025-02-04] MEDS: ESCITALOPRAM 20 MG TAB PO SCH (21:15)
[2025-02-04] MEDS: buPROPion XL 300 MG TAB.ER.24H PO SCH (21:15)
[2025-02-04] MEDS: QUEtiapine 25 MG TAB PO SCH (21:15)
[2025-02-04] MEDS: APIXABAN 5 MG TAB PO SCH (21:39)
[2025-02-05 08:37] LABS: Anion Gap 9.90 mmol/L (4.00-12.00); BUN/Creat Ratio 11.14 Ratio (12.00-20.00); Blood Urea Nitrogen 7.8 mg/dL (9.0-27.0); Calcium 8.0 mg/dL (8.7-10.3); Carbon Dioxide 22.1 mmol/L (21.6-31.8); Chloride 106 mmol/L (96-109); Glucose 94 mg/dL (70-110); Potassium 4.2 mmol/L (3.5-5.5); Sodium 138 mmol/L (135-145)
[2025-02-05 10:24] LABS: Basophils # (A) 0.03 X 10*3/uL (0.00-0.10); Basophils % (A) 0.3 %; Eosinophils # (A) 0.04 X 10*3/uL (0.04-0.35); Eosinophils % (A) 0.3 %; HCT 35.2 % (39.6-50.0); HGB 11.4 g/dL (13.0-17.0); Immature Grans, Automated 0.30 %; Lymphocytes # (A) 0.55 X 10*3/uL (0.90-5.00); Lymphocytes % (A) 4.7 %; MCH 27.5 pg (27.0-32.0); MCHC 32.4 g/dL (32.0-37.0); MCV 85.0 FL (80.0-97.0); Monocytes # (A) 1.09 X 10*3/uL (0.20-1.00); Monocytes % (A) 9.3 %; NRBC Per 100 WBC 0 X 10*3/uL (0.00-0.01); Neutrophils # (A) 9.99 X 10*3/uL (1.80-7.70); Neutrophils % (A) 85.1 %; Platelet Count 183 X 10*3/uL (140-440); RBC 4.14 X 10*6/uL (4.40-5.60); RDW 13.3 % (11.5-14.5); WBC 11.74 X 10*3/uL (4.50-10.00)
--- NOTE | 2025-02-05 11:19 | XR ---
EXAMINATION TYPE: XR chest 2V DATE OF EXAM: 02/05/2025 11:12 AM COMPARISON: Chest radiographs from 02/04/2025 CLINICAL INDICATION: Male, 59 years old with history of pneumonia; [facility] TECHNIQUE: XR chest 2V Frontal and lateral views of the chest. FINDINGS: Lungs/Pleura: Similar multifocal airspace opacities. No evidence of pneumothorax. Blunting of the cos tophrenic angles. Pulmonary vascularity: Unremarkable. Heart/mediastinum: Cardiomediastinal silhouette is unremarkable. Musculoskeletal: No acute osseous pathology. There is fixation hardware in the lower cervical spine. Right chest wall [id number] tip terminating in the superior vena cava. IMPRESSION: 1. Multifocal airspace opacities concerning for pneumonia. 2. Trace bilateral pleural effusions. [facility], , 02/05/2025 11:17 AM
--- NOTE | 2025-02-05 17:35 | P.PN ---
Subjective Progress Note Date: 02/05/25 HPI: 59-year-old male known to me from his previous hospitalization at [facility] came in with complaints of shortness of breath cough without any significant sputum production. Patient had a recent pulmonary embolism followed by second hospitalization for pneumonia patient was given antibiotics and systemic steroids were discharged home. Patient appears to have had bilateral airspace consolidation and multilobar pneumonia. Patient came back here with complaints of shortness of breath. Patient does not have any fever, does have mild leukocytosis patient had a CT of the chest which showed bronchiectatic changes in the right lung with possibly mild infiltrate with air bronchogram below that. Patient was started on levofloxacin and Zosyn in the ER. Patient had a procalcitonin which is not elevated. Patient had any fever or chills. Patient had a history of esophageal cancer status post chemoradiation therapy patient is still on Keytruda. Patient is mildly hyponatremic at 132. Subjective: 02/05/25: Patient seen at bedside. No significant overnight events. States his breathing is still a little labored but improving. Pertinent positives and negatives discussed above, a complete review of systems was preformed and all the other sytems were negative. Vitals Signs Reveiwed. GENERAL: The patient is alert and oriented x3, not in any acute distress. Well developed, well nourished. HEENT: Pupils are round and equally reacting to light. EOMI. No scleral icterus. No conjunctival pallor. Normocephalic, atraumatic. No pharyngeal erythema. No th yromegaly. CARDIOVASCULAR: S1 and S2 present. No murmurs, rubs, or gallops. PULMONARY: Chest is clear to auscultation, no wheezing or crackles. ABDOMEN: Soft, nontender, nondistended, normoactive bowel sounds. No palpable organomegaly. MUSCULOSKELETAL: No joint swelling or deformity. EXTREMITIES: No cyanosis, clubbing, or pedal edema. NEUROLOGICAL: Gross neurological examination did not reveal any focal deficits. SKIN: No rashes. Data Reveiwed Today: Patient Labs: WBC 11.74, hemoglobin 11.4, platelets 183, neutrophils 9.99, sodium 138, potassium 4.2, BUN 7.8, creatinine 0.7, and calcium 8. Imaging: Chest x-ray shows multifocal airspace opacities concerning for pneumoni a, and trace bilateral pleural effusions. Assessment and plan -Acute hypoxic respiratory failure requiring 4 L of oxygen: Patient has bronchiectasis and possibly radiation induced lung damage rather than pneumonia. Patient has mild airspace consolidation probably from his previous pneumonia. Will discontinue levofloxacin continue with [facility] infectious diseases following the patient. - Patient was scheduled for bronchoscopy with biopsies today but was given dose of Eliquis the night before so the procedure had to be scrubbed and moved till tomorrow (02/06) - Metastatic esophageal cancer status post chemoradiation therapy presently on immunotherapy with Keytruda - Chronic dysphagia for which patient has a PEG tube - Mild leukocytosis can be reactive or can be secondary to pneumonia or bronchiectasis - COPD without any significant acute exacerbation - Hypertension: cont. to hold antihypertensive medication as BP has been wnl limits since admission - Anxiety/depression - cleared by speech therapy for PO intake with regular diet with thin liquids while seated in upright position Had a history of COPD and alcohol abuse which are not issues now Recent pulmonary embolism for which patient is on Eliquis which was resumed F NS 100 cc/hr E none N tube feedings DVT ppx: Eliquis GI ppx: None indicated Code Status: Full code Anticipated discharge place: To home Anticipated discharge time: Pending clinical course Objective - Vital Signs Vital signs: Vital Signs Temp 98.6 F 02/05/25 07:24 Pulse 90 02/05/25 07:24 Resp 20 02/05/25 07:24 BP 117/72 02/05/25 07:24 Pulse Ox 88 L 02/05/25 07:24 FiO2 Intake & Output 02/04/25 02/05/25 02/05/25 18:59 06:59 18:59 Output Total 1000 875 Balance -1000 -875 Weight 68.039 kg Output: Urine 1000 875 - Labs CBC & Chem 7: 02/05/25 08:14 02/05/25 05:05 Labs: Abnormal Lab Results - Last 24 Hours (Table) 02/04/25 Range/Units 14:09 WBC 10.62 H (4.50-10.00) X 10*3/uL RBC 4.18 L (4.40-5.60) X 10*6/uL Hgb 11.7 L (13.0-17.0) g/dL Hct 36.3 L (39.6-50.0) % Immature Gran # 0.06 H (0.00-0.04) X 10*3/uL Neutrophils # 9.17 H (1.80-7.70) X 10*3/uL Lymphocytes # 0.50 L (0.90-5.00) X 10*3/uL
--- NOTE | 2025-02-05 20:58 | P.PN ---
Subjective Progress Note Date: 02/05/25 Patient is a 59-year-old male with past medical history significant for COPD, former heavy tobacco use, former alcohol abuse, remote oral cancer with previous reconstructive surgery. More recently, diagnosed with metastatic gastroesophageal cancer approximately 3 years ago. Status post chemoradiation, currently maintained on Keytruda. His oncologist is Dr. Rios. He has chronic dysphagia and has a PEG tube. Still has oral intake. Patient brought in by EMS early this morning. He had significant shortness of breath. Reportedly, released from [facility] approximately 1-1/2 weeks ago with bilateral pneumonia. He finished his antibiotics outpatient. Also, diagnosed with pulmonary embolism and started on Eliquis. Workup in the emergency department including a chest CT angiogram which did not show any evidence of pulmonary embolism. There is extensive bilateral airspace consolidation concerning for multilobar pneumonia. Chronic underlying appearance with bronchiectasis concerning for underlying lung scarring and probable post- treatment changes. No prior imaging available for comparison. CBC: WBC count 11.18, hemoglobin 14.2, platelets 224. CMP: Sodium 132, potassium 4.1, chloride 96, serum bicarb 26, BUN 21, creatinine 0.54, glucose 112. Lactic 2.7 down to 1.8. LFTs unremarkable. Troponin less than 0.012. NT proBNP 303. Patient currently being evaluated emergency department. Nontoxic appearance. States that shortness of breath developed in the last 24 hours. No significant coughing. No significant sputum production or hemoptysis. No fevers or chills. He has chronic issues with dysphagia. Has PEG tube, but still has oral intake. He has been started empirically on Levaquin and Zosyn in the ED. Nonlocalized chest pain. No palpitations, syncopal events, lower extremity edema. Normal saline infusing at 100 mL/h. Current vital signs: Temperature 99.4 F, heart rate 92 bpm, blood pressure 136/89 mmHg, nontachypneic, SpO2 recorded at 97% on 4 L/min nasal cannula. 02/05/2025, the patient is clinically unchanged. We reviewed the CAT scan of the chest and compared to the earlier CAT scans that was done at [facility]. Discussed the case also with his oncologist and the patient will need a bronchoscopy and transbronchial biopsies and transbronchial needle aspirate of subcarinal lymph node. The patient is afebrile. White cell count 11.7. Hemoglobin 9.4. Electrolytes all within normal limits. Procalcitonin level is 0.15. Remains on broad-spectrum antibiotics to IV Zosyn. Remains on IV fluids. Coagulations currently on hold in preparation for bronchoscopy to be done in a.m. He remains on 4 L of oxygen by nasal cannula with a pulse ox of 98%. Objective - Vital Signs Vital signs: Vital Signs Temp 99.2 F 02/05/25 18:56 Pulse 76 02/05/25 18:56 Resp 18 02/05/25 18:56 BP 125/63 02/05/25 18:56 Pulse Ox 94 L 02/05/25 18:56 FiO2 Intake & Output 02/05/25 02/05/25 02/06/25 06:59 18:59 06:59 Intake Total 1400 Output Total 875 Balance -875 1400 Weight 68.039 kg Intake: Intake, IV Titration 1400 Amount Piperacillin-Tazobactam 3 200 .375 gm In Sodium Chloride 0.9% 100 ml @ 25 mls/hr IVPB Q8H HERMILO Rx#: [id number] Sodium Chloride 0.9% 1, 1200 000 ml @ 100 mls/hr IV . Q10H HERMILO Rx#:[id number] Output: Urine 875 Other: Voiding Method External Catheter - Exam GENERAL EXAM: Alert, 59-year-old male, nontoxic appearance, comfortable in no apparent distress. HEAD: Normocephalic and atraumatic EYES: Normal reaction of pupils, equal size. NOSE: Clear with pink turbinates. THROAT: No erythema or exudates. NECK: No masses, no JVD. CHEST: No chest wall deformity. LUNGS: Equal air entry with scattered rhonchi. On 4 L/min nasal cannula. No conversational dyspnea or accessory muscle use.. CVS: S1 and S2 normal with no audible murmur, regular rhythm. No extra heart sounds ABDOMEN: PEG tube in place, active bowel sounds, no hepatosplenomegaly, no guarding or rigidity. SPINE: No scoliosis or deformity SKIN: No rashes CENTRAL NERVOUS SYSTEM: No focal deficits, tone is normal in all 4 extremities. EXTREMITIES: There is no peripheral edema, clubbing, or cyanosis. Peripheral pulses are intact. - Labs CBC & Chem 7: 02/05/25 08:14 02/05/25 05:05 Labs: Abnormal Lab Results - Last 24 Hours (Table) 02/05/25 02/05/25 Range/Units 05:05 08:14 WBC 11.74 H (4.50-10.00) X 10*3/uL RBC 4.14 L (4.40-5.60) X 10*6/uL Hgb 11.4 L (13.0-17.0) g/dL Hct 35.2 L (39.6-50.0) % Neutrophils # 9.99 H (1.80-7.70) X 10*3/uL Lymphocytes # 0.55 L (0.90-5.00) X 10*3/uL Monocytes # 1.09 H (0.20-1.00) X 10*3/uL BUN 7.8 L (9.0-27.0) mg/dL BUN/Creatinine Ratio 11.14 L (12.00-20.00) Ratio Calcium 8.0 L (8.7-10.3) mg/dL Microbiology - Last 24 Hours (Table) 02/04/25 04:05 Blood Culture - Preliminary Blood Assessment and Plan Assessment: Acute hypoxemic respiratory failure, currently on 4 L/min nasal cannula, chest CT angiogram which did not show any evidence of pulmonary embolism. There is extensive bilateral airspace consolidation, concerning for multilobar pneumonia. CTA of the chest was reviewed and compared to the earlier CAT scan that was done in [facility]. There is obvious progression in the interstitial and airspace opacities upper lobes bilaterally along with some areas of scarring and bronchiectasis. In addition, the patient has a bulky subcarinal lymph node. Rule out any chronic/persistent infections. Rule out malignancy or progression of esophageal cancer. Rule out immunotherapy related pneumonitis although this test is felt to be less likely. The patient will need a bronchoscopy. History of metastatic esophageal cancer status post chemoradiation, currently maintained on immunotherapy with Keytruda Remote history of oral cancer with previous reconstructive surgery Chronic dysphagia, with PEG tube History of pulmonary embolism, anticoagulated on Eliquis Chronic obstructive pulmonary disease Hypertension Former heavy tobacco use Former alcohol abuse Anxiety/depression Plan: Keep the patient on 40 of oxygen by nasal cannula Continue albuterol nebs as needed Continue empiric antibiotics Check procalcitonin level is mildly elevated Consult dietary for tube feeds Hold anticoagulation The plan is for bronchoscopy, transbronchial biopsy of the upper lobe pulmonary infiltrates/consolidation in addition to bronchial lavage and microbial culture will be obtained. At the same time, we will perform a endobronchial ultrasound and biopsy of the subcarinal lymph node. Case was discussed with medical oncology. Keep the patient n.p.o. after midnight for bronchoscopy in a.m.
[2025-02-06 08:01] LABS: Basophils # (A) 0.02 X 10*3/uL (0.00-0.10); Basophils % (A) 0.2 %; Eosinophils # (A) 0.03 X 10*3/uL (0.04-0.35); Eosinophils % (A) 0.3 %; HCT 33.8 % (39.6-50.0); HGB 11.1 g/dL (13.0-17.0); Immature Grans, Automated 0.20 %; Lymphocytes # (A) 0.56 X 10*3/uL (0.90-5.00); Lymphocytes % (A) 6.1 %; MCH 27.7 pg (27.0-32.0); MCHC 32.8 g/dL (32.0-37.0); MCV 84.3 FL (80.0-97.0); Monocytes # (A) 0.85 X 10*3/uL (0.20-1.00); Monocytes % (A) 9.2 %; NRBC Per 100 WBC 0 X 10*3/uL (0.00-0.01); Neutrophils # (A) 7.71 X 10*3/uL (1.80-7.70); Neutrophils % (A) 84.0 %; Platelet Count 180 X 10*3/uL (140-440); RBC 4.01 X 10*6/uL (4.40-5.60); RDW 13.2 % (11.5-14.5); WBC 9.19 X 10*3/uL (4.50-10.00)
[2025-02-06 08:08] LABS: Anion Gap 11.80 mmol/L (4.00-12.00); BUN/Creat Ratio 12.83 Ratio (12.00-20.00); Blood Urea Nitrogen 7.7 mg/dL (9.0-27.0); Calcium 7.9 mg/dL (8.7-10.3); Carbon Dioxide 20.2 mmol/L (21.6-31.8); Chloride 105 mmol/L (96-109); Glucose 87 mg/dL (70-110); Potassium 4.3 mmol/L (3.5-5.5); Sodium 137 mmol/L (135-145)
--- NOTE | 2025-02-06 15:14 | P.PN ---
Subjective Progress Note Date: 02/06/25 HPI: 59-year-old male known to me from his previous hospitalization at [facility] came in with complaints of shortness of breath cough without any significant sputum production. Patient had a recent pulmonary embolism followed by second hospitalization for pneumonia patient was given antibiotics and systemic steroids were discharged home. Patient appears to have had bilateral airspace consolidation and multilobar pneumonia. Patient came back here with complaints of shortness of breath. Patient does not have any fever, does have mild leukocytosis patient had a CT of the chest which showed bronchiectatic changes in the right lung with possibly mild infiltrate with air bronchogram below that. Patient was started on levofloxacin and Zosyn in the ER. Patient had a procalcitonin which is not elevated. Patient had any fever or chills. Patient had a history of esophageal cancer status post chemoradiation therapy patient is still on Keytruda. Patient is mildly hyponatremic at 132. Subjective: 02/05/25: Patient seen at bedside. No significant overnight events. States his breathing is still a little labored but improving. 02/06/2025: Patient seen at bedside. No significant overnight events. Reports his breathing still is slightly difficult, states it is better than before. Patient has no other complaints or concerns this time. Pertinent positives and negatives discussed above, a complete review of systems was preformed and all the other sytems were negative. Vitals Signs Reveiwed. GENERAL: The patient is alert and oriented x3, not in any acute distress. Well developed, well nourished. HEENT: Pupils are round and equally reacting to light. EOMI. No scleral icterus. No conjunctival pallor. Normocephalic, atraumatic. No pharyngeal erythema. No thyromegaly. CARDIOVASCULAR: S1 and S2 present. No murmurs, rubs, or gallops. PULMONARY: Improved air movement bilaterally, decreased wheezing auscultated compared to yesterday but still present ABDOMEN: Soft, nontender, nondistended, normoactive bowel sounds. No palpable organomegaly. MUSCULOSKELETAL: No joint swelling or deformity. EXTREMITIES: No cyanosis, clubbing, or pedal edema. NEUROLOGICAL: Gross neurological examination did not reveal any focal deficits. SKIN: No rashes. Data Reveiwed Today: Patient Labs: WBC 9.19, hemoglobin 11.1, platelets 180, sodium 137, potassium 4.3, bicarb 20.2, BUN 7.7, creatinine 0.6, and glucose 87. Imaging: No new imaging. Assessment and plan -Acute hypoxic respiratory failure requiring 4 L of oxygen: Patient has bronchiectasis and possibly radiation induced lung damage rather than pneumonia. Patient has mild airspace consolidation probably from his previous pneumonia. - Patient was scheduled bronchoscopy with biopsy today but was canceled as they did not have any available times for him so the plan is for bronchoscopy tomorrow (02/07) - Tube feeds resumed till midnight tonight (02/06) - Patient is receiving Zosyn (day 3) - Metastatic esophageal cancer status post chemoradiation therapy presently on immunotherapy with Keytruda - Chronic dysphagia for which patient has a PEG tube - Mild leukocytosis can be reactive or can be secondary to pneumonia or bronchiectasis - COPD without any significant acute exacerbation - Hypertension: cont. to hold antihypertensive medication as BP has been wnl limits since admission - Anxiety/depression - cleared by speech therapy for PO intake with regular diet with thin liquids while seated in upright position Had a history of COPD and alcohol abuse which are not issues now Recent pulmonary embolism for which patient is on Eliquis which was resumed F NS 100 cc/hr E none N tube feedings DVT ppx: Eliquis GI ppx: None Code Status: Full code Anticipated discharge place: To home Anticipated discharge time: Pending clinical course Objective - Vital Signs Vital signs: Vital Signs Temp 98.2 F 02/06/25 12:21 Pulse 72 02/06/25 12:21 Resp 16 02/06/25 12:21 BP 131/66 02/06/25 12:21 Pulse Ox 93 L 02/06/25 12:21 FiO2 Intake & Output 02/05/25 02/06/25 02/06/25 18:59 06:59 18:59 Intake Total 1400 300 Output Total 800 Balance 1400 -500 Weight 68.039 kg Intake: Intake, IV Titration 1400 Amount Piperacillin-Tazobactam 3 200 .375 gm In Sodium Chloride 0.9% 100 ml @ 25 mls/hr IVPB Q8H [facility] Rx#: [id number] Sodium Chloride 0.9% 1, 1200 000 ml @ 100 mls/hr IV . Q10H [facility]O Rx#:[id number] Oral 300 Output: Urine 800 Other: Voiding Method External Catheter External Catheter - Labs CBC & Chem 7: 02/06/25 05:31 02/06/25 05:31 Labs: Abnormal Lab Results - Last 24 Hours (Table) 02/06/25 02/06/25 Range/Units 05:31 05:31 RBC 4.01 L (4.40-5.60) X 10*6/uL Hgb 11.1 L (13.0-17.0) g/dL Hct 33.8 L (39.6-50.0) % Neutrophils # 7.71 H (1.80-7.70) X 10*3/uL Lymphocytes # 0.56 L (0.90-5.00) X 10*3/uL Eosinophils # 0.03 L (0.04-0.35) X 10*3/uL Carbon Dioxide 20.2 L (21.6-31.8) mmol/L BUN 7.7 L (9.0-27.0) mg/dL Calcium 7.9 L (8.7-10.3) mg/dL Microbiology - Last 24 Hours (Table) 02/04/25 04:05 Blood Culture - Preliminary Blood
--- NOTE | 2025-02-06 17:39 | P.PN ---
Subjective Progress Note Date: 02/06/25 Patient is a 59-year-old male with past medical history significant for COPD, former heavy tobacco use, former alcohol abuse, remote oral cancer with previous reconstructive surgery. More recently, diagnosed with metastatic gastroesophageal cancer approximately 3 years ago. Status post chemoradiation, currently maintained on Keytruda. His oncologist is Dr. Rios. He has chronic dysphagia and has a PEG tube. Still has oral intake. Patient brought in by EMS early this morning. He had significant shortness of breath. Reportedly, released from [facility] approximately 1-1/2 weeks ago with bilateral pneumonia. He finished his antibiotics outpatient. Also, diagnosed with pulmonary embolism and started on Eliquis. Workup in the emergency department including a chest CT angiogram which did not show any evidence of pulmonary embolism. There is extensive bilateral airspace consolidation concerning for multilobar pneumonia. Chronic underlying appearance with bronchiectasis concerning for underlying lung scarring and probable post- treatment changes. No prior imaging available for comparison. CBC: WBC count 11.18, hemoglobin 14.2, platelets 224. CMP: Sodium 132, potassium 4.1, chloride 96, serum bicarb 26, BUN 21, creatinine 0.54, glucose 112. Lactic 2.7 down to 1.8. LFTs unremarkable. Troponin less than 0.012. NT proBNP 303. Patient currently being evaluated emergency department. Nontoxic appearance. States that shortness of breath developed in the last 24 hours. No significant coughing. No significant sputum production or hemoptysis. No fevers or chills. He has chronic issues with dysphagia. Has PEG tube, but still has oral intake. He has been started empirically on Levaquin and Zosyn in the ED. Nonlocalized chest pain. No palpitations, syncopal events, lower extremity edema. Normal saline infusing at 100 mL/h. Current vital signs: Temperature 99.4 F, heart rate 92 bpm, blood pressure 136/89 mmHg, nontachypneic, SpO2 recorded at 97% on 4 L/min nasal cannula. 02/05/2025, the patient is clinically unchanged. We reviewed the CAT scan of the chest and compared to the earlier CAT scans that was done at [facility]. Discussed the case also with his oncologist and the patient will need a bronchoscopy and transbronchial biopsies and transbronchial needle aspirate of subcarinal lymph node. The patient is afebrile. White cell count 11.7. Hemoglobin 9.4. Electrolytes all within normal limits. Procalcitonin level is 0.15. Remains on broad-spectrum antibiotics to IV Zosyn. Remains on IV fluids. Coagulations currently on hold in preparation for bronchoscopy to be done in a.m. He remains on 4 L of oxygen by nasal cannula with a pulse ox of 98%. 02/06/2025, clinically unchanged The patient was taken off anticoagulation. Bronchoscopy is to be done tomorrow morning. Meanwhile, he remains on IV Zosyn. Oxygenation remains unchanged and the patient remains on O2 at 3 L with a pulse ox of 93%. Afebrile. Hemodynamically stable. White cell count at 9.1 with a hemoglobin 11.1 and a platelet count of 180. BUN is 7 with a creatinine of 0.6. Sodium levels at 137. Blood culture has been negative. Objective - Vital Signs Vital signs: Vital Signs Temp 98.2 F 02/06/25 12:21 Pulse 72 02/06/25 12:21 Resp 16 02/06/25 12:21 BP 131/66 02/06/25 12:21 Pulse Ox 93 L 02/06/25 12:21 FiO2 Intake & Output 02/05/25 02/06/25 02/06/25 18:59 06:59 18:59 Intake Total 0608 289 6604 Output Total 800 500 Balance 1400 -500 660 Weight 68.039 kg Intake: Intake, IV Titration 1400 Amount Piperacillin-Tazobactam 3 200 .375 gm In Sodium Chloride 0.9% 100 ml @ 25 mls/hr IVPB Q8H [facility] Rx#: [id number] Sodium Chloride 0.9% 1, 1200 000 ml @ 100 mls/hr IV . Q10H [facility]O Rx#:[id number] Oral 300 1160 Output: Urine 800 500 Other: Voiding Method External Catheter External Catheter # Voids 2 # Bowel Movements 1 - Exam GENERAL EXAM: Alert, 59-year-old male, nontoxic appearance, comfortable in no apparent distress. HEAD: Normocephalic and atraumatic EYES: Normal reaction of pupils, equal size. NOSE: Clear with pink turbinates. THROAT: No erythema or exudates. NECK: No masses, no JVD. CHEST: No chest wall deformity. LUNGS: Equal air entry with scattered rhonchi. On 4 L/min nasal cannula. No conversational dyspnea or accessory muscle use.. CVS: S1 and S2 normal with no audible murmur, regular rhythm. No extra heart sounds ABDOMEN: PEG tube in place, active bowel sounds, no hepatosplenomegaly, no guarding or rigidity. SPINE: No scoliosis or deformity SKIN: No rashes CENTRAL NERVOUS SYSTEM: No focal deficits, tone is normal in all 4 extremities. EXTREMITIES: There is no peripheral edema, clubbing, or cyanosis. Peripheral pulses are intact. - Labs CBC & Chem 7: 02/06/25 05:31 02/06/25 05:31 Labs: Abnormal Lab Results - Last 24 Hours (Table) 02/06/25 02/06/25 Range/Units 05:31 05:31 RBC 4.01 L (4.40-5.60) X 10*6/uL Hgb 11.1 L (13.0-17.0) g/dL Hct 33.8 L (39.6-50.0) % Neutrophils # 7.71 H (1.80-7.70) X 10*3/uL Lymphocytes # 0.56 L (0.90-5.00) X 10*3/uL Eosinophils # 0.03 L (0.04-0.35) X 10*3/uL Carbon Dioxide 20.2 L (21.6-31.8) mmol/L BUN 7.7 L (9.0-27.0) mg/dL Calcium 7.9 L (8.7-10.3) mg/dL Microbiology - Last 24 Hours (Table) 02/04/25 04:05 Blood Culture - Preliminary Blood Assessment and Plan Assessment: Acute hypoxemic respiratory failure, currently on 3 L/min nasal cannula, chest CT angiogram which did not show any evidence of pulmonary embolism. There is extensive bilateral airspace consolidation, concerning for multilobar pneumonia. CTA of the chest was reviewed and compared to the earlier CAT scan that was done in [facility]. There is obvious progression in the interstitial and airspace opacities upper lobes bilaterally along with some areas of scarring and bronchiectasis. In addition, the patient has a bulky subcarinal lymph node. Rule out any chronic/persistent infections. Rule out malignancy or progression of esophageal cancer. Rule out immunotherapy related pneumonitis although this test is felt to be less likely. The patient will need a bronchoscopy. History of metastatic esophageal cancer status post chemoradiation, currently maintained on immunotherapy with Keytruda Remote history of oral cancer with previous reconstructive surgery Chronic dysphagia, with PEG tube History of pulmonary embolism, anticoagulated on Eliquis Chronic obstructive pulmonary disease Hypertension Former heavy tobacco use Former alcohol abuse Anxiety/depression Plan: Keep the patient on 3 L of oxygen by nasal cannula Continue albuterol nebs as needed Continue empiric antibiotics Check procalcitonin level is mildly elevated Consult dietary for tube feeds Hold anticoagulation The plan is for bronchoscopy, transbronchial biopsy of the upper lobe pulmonary infiltrates/consolidation in addition to bronchial lavage and microbial culture will be obtained. At the same time, we will perform a endobronchial ultrasound and biopsy of the subcarinal lymph node. This will be done tomorrow at 8:00 in the morning. Case was discussed with medical oncology. Keep the patient n.p.o. after midnight for bronchoscopy in a.m.
[2025-02-07] MEDS ORDERED: SUGAMMADEX SODIUM 100 MG/ML SYR IV ONE (07:55)
[2025-02-07] MEDS ORDERED: SUCCINYLCHOLINE CHLORIDE 200 MG/10 ML VIAL IV ONE (07:55)
[2025-02-07] MEDS ORDERED: LIDOCAINE 1% INJ 10MG/ML (20 ML MDV) ONE (07:55)
[2025-02-07] MEDS ORDERED: fentaNYL (PF) 50 MCG/ML 2 ML AMP ONE (07:55)
[2025-02-07] MEDS ORDERED: PROPOFOL 10 MG/ML 20 ML VIAL IV ONE (07:55)
[2025-02-07] MEDS ORDERED: ROCURONIUM 10 MG/ML (5 ML VIAL) IV ONE (07:55)
[2025-02-07] MEDS: IV FLUID CONTINUATION 1,000 ML IV ONE (08:12)
[2025-02-07] MEDS: SODIUM CHLORIDE 0.9% 500 ML 500 ML IV ONE (09:03)
--- NOTE | 2025-02-07 09:09 | FL ---
EXAMINATION TYPE: FL guidance operating room Intraoperative/procedural fluoroscopic services were pro vided. CLINICAL INDICATION:Male, 59 years old with history of BRONCH; , [facility] FINDINGS: Fluoroscopic image for right-sided bronchoscopy. No radiographic evidence for complication. Total fluoroscopy time is 52.5 seconds. DAP: 1.9280 Gycm2 Please see the operative/procedural note for further details. [facility], , 02/07/2025 9:06 AM
[2025-02-07] MEDS: IPRATROPIUM-ALBUTEROL 3 ML NEB INHALATION STA (09:18)
--- NOTE | 2025-02-07 09:22 | XR ---
EXAMINATION TYPE: XR chest 1V portable DATE OF EXAM: 02/07/2025 9:15 AM COMPARISON: Chest radiographs from 02/05/2025, fluoroscopic images from 02/07/2025, CTA chest 02/04/2025 TECHNIQUE: XR chest 1V portable Portable AP radiograph of the chest. CLINICAL INDICATION:Male, 59 years old with history of POST BRONCHOSCOPY; FINDINGS: Lungs/Pleura: Similar multifocal patchy perihilar airspace opacities. No pneumothorax or pleural effu madyson. Pulmonary vascularity: Unremarkable. Heart/mediastinum: Cardiomediastinal silhouette is unremarkable. Musculoskeletal: No acute osseous pathology. Cervical fusion hardware. Other findings: None Lines/Tubes: Right chest wall subclavian approach Mediport catheter distal tip in the high SVC. IMPRESSION: Similar multifocal airspace opacities concerning for pneumonia. No discrete pneumothorax post broncho scopy. [facility], , 02/07/2025 9:19 AM
--- NOTE | 2025-02-07 14:39 | P.PN ---
Subjective Progress Note Date: 02/07/25 HPI: 59-year-old male known to me from his previous hospitalization at [facility] came in with complaints of shortness of breath cough without any significant sputum production. Patient had a recent pulmonary embolism followed by second hospitalization for pneumonia patient was given antibiotics and systemic steroids were discharged home. Patient appears to have had bilateral airspace consolidation and multilobar pneumonia. Patient came back here with complaints of shortness of breath. Patient does not have any fever, does have mild leukocytosis patient had a CT of the chest which showed bronchiectatic changes in the right lung with possibly mild infiltrate with air bronchogram below that. Patient was started on levofloxacin and Zosyn in the ER. Patient had a procalcitonin which is not elevated. Patient had any fever or chills. Patient had a history of esophageal cancer status post chemoradiation therapy patient is still on Keytruda. Patient is mildly hyponatremic at 132. Subjective: 02/05/25: Patient seen at bedside. No significant overnight events. States his breathing is still a little labored but improving. 02/06/2025: Patient seen at bedside. No significant overnight events. Reports his breathing still is slightly difficult, states it is better than before. Patient has no other complaints or concerns this time. 02/07/2025: Patient seen at bedside. No significant overnight events. States his breathing is significantly improved after receiving bronchoscopy with biopsies this morning. Patient has no other complaints concerns at this time. Pertinent positives and negatives discussed above, a complete review of systems was preformed and all the other sytems were negative. Vitals Signs Reveiwed. GENERAL: The patient is alert and oriented x3, not in any acute distress. Well developed, well nourished. HEENT: Pupils are round and equally reacting to light. EOMI. No scleral icterus. No conjunctival pallor. Normocephalic, atraumatic. No pharyngeal erythema. No thyromegaly. CARDIOVASCULAR: S1 and S2 present. No murmurs, rubs, or gallops. PULMONARY: Improved air movement bilaterally, decreased wheezing auscultated compared to yesterday but still present ABDOMEN: Soft, nontender, nondistended, normoactive bowel sounds. No palpable organomegaly. MUSCULOSKELETAL: No joint swelling or deformity. EXTREMITIES: No cyanosis, clubbing, or pedal edema. NEUROLOGICAL: Gross neurological examination did not reveal any focal deficits. SKIN: No rashes. Data Reveiwed Today: Patient Labs: WBC 9.19, hemoglobin 11.1, platelets 180, sodium 137, potassium 4.3, bicarb 20.2, BUN 7.7, creatinine 0.6, and glucose 87. Imaging: No new imaging. Assessment and plan -Acute hypoxic respiratory failure requiring 4 L of oxygen: Patient has bronchiectasis and possibly radiation induced lung damage rather than pneumonia. Patient has mild airspace consolidation probably from his previous pneumonia. - Status post bronchoscopy with biopsies today, patient breathing better although not requiring 6 L oxygen likely secondary to anesthesia - Will resume Eliquis in 24 hours - PT OT consulted - Tube feeds resumed till midnight tonight (02/06) - Patient is receiving Zosyn (day 4) - Metastatic esophageal cancer status post chemoradiation therapy presently on immunotherapy with Keytruda - Chronic dysphagia for which patient has a PEG tube - Mild leukocytosis can be reactive or can be secondary to pneumonia or bronchiectasis - COPD without any significant acute exacerbation - Hypertension: cont. to hold antihypertensive medication as BP has been wnl limits since admission - Anxiety/depression - cleared by speech therapy for PO intake with regular diet with thin liquids while seated in upright position Had a history of COPD and alcohol abuse which are not issues now Recent pulmonary embolism for which patient is on Eliquis which was resumed F NS 100 cc/hr E none N tube feedings DVT ppx: Eliquis GI ppx: None Code Status: Full code Anticipated discharge place: To home Anticipated discharge time: Pending clinical course Attestation/ Annealing Furnace Operator Note: Attestation to Progress Note, Participation (I saw and evaluated the patient with the Resident, and I reviewed and discussed the patient with the Resident and agree with the Resident's findings and plans as documented above., management reviewed and discussed), I agree with findings & plan, Provider Signature (CHRIS BERMAN, [facility]) Objective - Vital Signs Vital signs: Vital Signs Temp 98.1 F 02/07/25 06:44 Pulse 61 02/07/25 06:44 Resp 16 02/07/25 06:44 BP 136/77 02/07/25 06:44 Pulse Ox 91 L 02/07/25 06:44 FiO2 Intake & Output 02/06/25 02/07/25 02/07/25 18:59 06:59 18:59 Intake Total 1160 Output Total 900 750 Balance 260 -750 Weight 71.5 kg Intake: Oral 1160 Output: Urine 900 750 Other: Voiding Method External Catheter External Catheter # Voids 2 # Bowel Movements 1 - Labs CBC & Chem 7: 02/16/25 04:29 02/16/25 04:29 Labs: Abnormal Lab Results - Last 24 Hours (Table) 02/06/25 02/06/25 Range/Units 05:31 05:31 RBC 4.01 L (4.40-5.60) X 10*6/uL Hgb 11.1 L (13.0-17.0) g/dL Hct 33.8 L (39.6-50.0) % Neutrophils # 7.71 H (1.80-7.70) X 10*3/uL Lymphocytes # 0.56 L (0.90-5.00) X 10*3/uL Eosinophils # 0.03 L (0.04-0.35) X 10*3/uL Carbon Dioxide 20.2 L (21.6-31.8) mmol/L BUN 7.7 L (9.0-27.0) mg/dL Calcium 7.9 L (8.7-10.3) mg/dL Microbiology - Last 24 Hours (Table) 02/04/25 04:05 Blood Culture - Preliminary Blood
--- NOTE | 2025-02-07 21:25 | P.PN ---
Subjective Progress Note Date: 02/07/25 Patient is a 59-year-old male with past medical history significant for COPD, former heavy tobacco use, former alcohol abuse, remote oral cancer with previous reconstructive surgery. More recently, diagnosed with metastatic gastroesophageal cancer approximately 3 years ago. Status post chemoradiation, currently maintained on Keytruda. His oncologist is Dr. Rios. He has chronic dysphagia and has a PEG tube. Still has oral intake. Patient brought in by EMS early this morning. He had significant shortness of breath. Reportedly, released from [facility] approximately 1-1/2 weeks ago with bilateral pneumonia. He finished his antibiotics outpatient. Also, diagnosed with pulmonary embolism and started on Eliquis. Workup in the emergency department including a chest CT angiogram which did not show any evidence of pulmonary embolism. There is extensive bilateral airspace consolidation concerning for multilobar pneumonia. Chronic underlying appearance with bronchiectasis concerning for underlying lung scarring and probable post- treatment changes. No prior imaging available for comparison. CBC: WBC count 11.18, hemoglobin 14.2, platelets 224. CMP: Sodium 132, potassium 4.1, chloride 96, serum bicarb 26, BUN 21, creatinine 0.54, glucose 112. Lactic 2.7 down to 1.8. LFTs unremarkable. Troponin less than 0.012. NT proBNP 303. Patient currently being evaluated emergency department. Nontoxic appearance. States that shortness of breath developed in the last 24 hours. No significant coughing. No significant sputum production or hemoptysis. No fevers or chills. He has chronic issues with dysphagia. Has PEG tube, but still has oral intake. He has been started empirically on Levaquin and Zosyn in the ED. Nonlocalized chest pain. No palpitations, syncopal events, lower extremity edema. Normal saline infusing at 100 mL/h. Current vital signs: Temperature 99.4 F, heart rate 92 bpm, blood pressure 136/89 mmHg, nontachypneic, SpO2 recorded at 97% on 4 L/min nasal cannula. 02/05/2025, the patient is clinically unchanged. We reviewed the CAT scan of the chest and compared to the earlier CAT scans that was done at [facility]. Discussed the case also with his oncologist and the patient will need a bronchoscopy and transbronchial biopsies and transbronchial needle aspirate of subcarinal lymph node. The patient is afebrile. White cell count 11.7. Hemoglobin 9.4. Electrolytes all within normal limits. Procalcitonin level is 0.15. Remains on broad-spectrum antibiotics to IV Zosyn. Remains on IV fluids. Coagulations currently on hold in preparation for bronchoscopy to be done in a.m. He remains on 4 L of oxygen by nasal cannula with a pulse ox of 98%. 02/06/2025, clinically unchanged The patient was taken off anticoagulation. Bronchoscopy is to be done tomorrow morning. Meanwhile, he remains on IV Zosyn. Oxygenation remains unchanged and the patient remains on O2 at 3 L with a pulse ox of 93%. Afebrile. Hemodynamically stable. White cell count at 9.1 with a hemoglobin 11.1 and a platelet count of 180. BUN is 7 with a creatinine of 0.6. Sodium levels at 137. Blood culture has been negative. On 02/07/2025, the patient is being seen for a follow-up. Overall condition is essentially unchanged. He remains on oxygen and currently is on 60s of oxygen nasal cannula with a pulse ox of 97%. Bronchoscopy was performed today. I performed transbronchial biopsy of the right upper lobe. In addition, I per formed endobronchial ultrasound and transbronchial needle aspirate of subcarinal lymph node endobronchial lavage of the right upper lobe. Post bronchoscopy chest x-ray showed similar multifocal airspace disease. No evidence of any complication or pneumothorax postprocedure. Noted, the patient anticoagulation can be resumed following the procedure. Patient otherwise doing well. No new complaints. Remains on IV Zosyn. Will go ahead and add IV Solu-Medrol in addition. The white cell count is at 9.1 with a hemoglobin 11.1 and a platelet count of 180. Legionella urine antigen was negative. Electrolytes all within normal limits. Blood cultures been negative. The procalcitonin level is at 0.15. Objective - Vital Signs Vital signs: Vital Signs Temp 97.8 F 02/07/25 19:09 Pulse 65 02/07/25 19:09 Resp 17 02/07/25 19:09 BP 134/71 02/07/25 19:09 Pulse Ox 97 02/07/25 19:09 FiO2 Intake & Output 02/07/25 02/07/25 02/08/25 06:59 18:59 06:59 Intake Total 2500 Output Total 750 1300 350 Balance -750 1200 -350 Weight 71.5 kg Intake: IV 400 Oral 2100 Output: Urine 750 1300 350 Other: Voiding Method External Catheter - Exam GENERAL EXAM: Alert, 59-year-old male, nontoxic appearance, comfortable in no apparent distress. HEAD: Normocephalic and atraumatic EYES: Normal reaction of pupils, equal size. NOSE: Clear with pink turbinates. THROAT: No erythema or exudates. NECK: No masses, no JVD. CHEST: No chest wall deformity. LUNGS: Equal air entry with scattered rhonchi. On 4 L/min nasal cannula. No conversational dyspnea or accessory muscle use.. CVS: S1 and S2 normal with no audible murmur, regular rhythm. No extra heart sounds ABDOMEN: PEG tube in place, active bowel sounds, no hepatosplenomegaly, no guarding or rigidity. SPINE: No scoliosis or deformity SKIN: No rashes CENTRAL NERVOUS SYSTEM: No focal deficits, tone is normal in all 4 extremities. EXTREMITIES: There is no peripheral edema, clubbing, or cyanosis. Peripheral pulses are intact. - Labs CBC & Chem 7: 02/06/25 05:31 02/06/25 05:31 Labs: Microbiology - Last 24 Hours (Table) 02/04/25 04:05 Blood Culture - Preliminary Blood Assessment and Plan Assessment: Acute hypoxemic respiratory failure, currently on 6 L/min nasal cannula, chest CT angiogram which did not show any evidence of pulmonary embolism. There is extensive bilateral airspace consolidation, concerning for multilobar pneumonia. CTA of the chest was reviewed and compared to the earlier CAT scan that was done in [facility]. There is obvious progression in the interstitial and airspace opacities upper lobes bilaterally along with some areas of scarring and bronchiectasis. In addition, the patient has a bulky subcarinal lymph node. Rule out any chronic/persistent infections. Rule out malignancy or progression of esophageal cancer. Rule out immunotherapy related pneumonitis although this test is felt to be less likely. The patient is post bronchoscopy on 02/07/2025 with a BAL of the right upper lobe, transbronchial biopsy of the right upper lobe, transbronchial needle aspirate of the subcarinal lymph node. History of metastatic esophageal cancer status post chemoradiation, currently maintained on immunotherapy with Keytruda Remote history of oral cancer with previous reconstructive surgery Chronic dysphagia, with PEG tube History of pulmonary embolism, anticoagulated on Eliquis Chronic obstructive pulmonary disease Hypertension Former heavy tobacco use Former alcohol abuse Anxiety/depression Plan: Keep the patient on 6 L of oxygen by nasal cannula Continue albuterol nebs as needed Continue empiric antibiotics Check procalcitonin level is mildly elevated Consult dietary for tube feeds Hold anticoagulation The case could be completed Continue IV Zosyn Add IV Solu-Medrol 40 mg every 6 hours May resume anticoagulants with Eliquis.
--- NOTE | 2025-02-07 21:31 | P.PCN ---
Date of Procedure: 02/07/25 Preoperative Diagnosis: Bilateral lung consolidation/airspace disease Subcarinal lymphadenopathy Esophageal cancer Postoperative Diagnosis: Same Procedure(s) Performed: Flexible bronchoscopy Transbronchial biopsy of the right upper lobe, fluoroscopic guidance BAL of the right upper lobe apical segment Endobronchial ultrasound Transbronchial needle aspirate of subcarinal lymph node, endobronchial ultrasound-guided. Anesthesia: NATALYAA Surgeon: Colby De La Torre Estimated Blood Loss (ml): 0 Pathology: other Condition: stable Disposition: floor Operative Findings: The procedure was done in the endoscopy suite. The patient was intubated and placed on a mechanical ventilator in the usual fashion. The patient was done by the anesthesia team. The patient was intubated with a #8 orotracheal tube Postintubation, the flexible bronchoscope was easily passed in the lower trachea and the procedure was performed as the patient was adequately oxygenated and ventilated. A full airway inspection was done. The distal trachea was within normal limits. Bilateral mainstem bronchi were patent and within normal limits. Examination of the right side included the right mainstem bronchus, right upper lobe bronchus, bronchus intermedius, right middle lobe bronchus and the right lo wer lobe bronchus in the various 10 segments of the right. Examination of the left side included the left upper lobe bronchus, left lower lobe bronchus and the various 8 segments on the left. No endobronchial tumors or lesions. No mucous identified. The bronchoscope was moved to the right upper lobe apical segment and the BAL of the right upper lobe was done. A total of 80 cc of saline was infused and 23 was aspirated. The aspirate was not bloody. Following that, transbronchial biopsy of the right upper lobe apical segment was done under fluoroscopic guidance. Several transbronchial biopsies were obtained. No bleeding was encountered and the patient tolerated the biopsies well. The flex bronchoscope was removed. The endobronchial ultrasound was inserted. A careful examination of the mediastinum was done using endobronchial ultrasound. At subcarinal station 7 level, a bulky heterogeneous lymph node was identified measuring up to 3.5 cm in size. Using a 22-gauge needle, tra nsbronchial needle aspirate of this lymph node structure was done and a total of 5 passes were taken. Otherwise, there was no other pathologic lymphadenopathy throughout the mediastinum. Following the transbronchial needle aspirate, the endobronchial ultrasound was removed. The flexible bronchoscope was reinserted and therapeutic airway suctioning was done. The flexible bronchoscope was removed and the patient was extubated and transferred to recovery in stable condition No complications Awaiting the results of the transbronchial biopsy of the right upper lobe and transbronchial needle aspirate of the subcarinal lymph node. The bronchoalveolar lavage from the right upper lobe will be sent for cultures.
[2025-02-08] MEDS: methylPREDNISolone SOD SUCCI 40 MG/ML 1 ML VIAL IV SCH (00:51)
[2025-02-08 08:40] LABS: Basophils # (A) 0.00 10*3/uL (0.00-0.10); Basophils % (A) 0.0 %; Eosinophils # (A) 0.00 10*3/uL (0.04-0.35); Eosinophils % (A) 0.0 %; HCT 32.6 % (39.6-50.0); Lymphocytes # (A) 0.33 10*3/uL (0.90-5.00); Lymphocytes % (A) 4.6 %; MCH 28.3 pg (27.0-32.0); MCHC 33.1 g/dL (32.0-37.0); MCV 85.3 fL (80.0-97.0); Monocytes # (A) 0.15 10*3/uL (0.20-1.00); Monocytes % (A) 2.1 %; Neutrophils # (A) 6.71 10*3/uL (1.80-7.70); Neutrophils % (A) 92.9 %; Platelet Count 212 10*3/uL (140-440); RBC 3.82 10*6/uL (4.40-5.60); RDW 13.4 % (11.5-14.5); WBC 7.22 10*3/uL (4.50-10.00)
[2025-02-08 08:41] LABS: HGB 10.8 g/dL (13.0-17.0)
[2025-02-08 08:59] LABS: ALT 13 U/L (4-49); AST 27 U/L (17-59); African American GFR (CKD) >90 (>60 ml/min/1.73 sqM); Albumin 2.6 g/dL (3.5-5.0); Albumin/Globulin Ratio 1.1; Alkaline Phosphatase 97 U/L (38-126); Anion Gap 6 mmol/L; Blood Urea Nitrogen 9 mg/dL (9-20); Calcium 8.4 mg/dL (8.4-10.2); Carbon Dioxide 26 mmol/L (22-30); Chloride 109 mmol/L (98-107); Globulin 2.4 g/dL; Glucose 187 mg/dL (74-99); Non-African American GFR(CKD) >90 (>60 ml/min/1.73 sqM); Potassium 4.1 mmol/L (3.5-5.1); Sodium 141 mmol/L (137-145); Total Protein 5.0 g/dL (6.3-8.2)
--- NOTE | 2025-02-08 10:58 | P.PN ---
Subjective Progress Note Date: 02/07/25 HPI: 59-year-old male known to me from his previous hospitalization at [facility] came in with complaints of shortness of breath cough without any significant sputum production. Patient had a recent pulmonary embolism followed by second hospitalization for pneumonia patient was given antibiotics and systemic steroids were discharged home. Patient appears to have had bilateral airspace consolidation and multilobar pneumonia. Patient came back here with complaints of shortness of breath. Patient does not have any fever, does have mild leukocytosis patient had a CT of the chest which showed bronchiectatic changes in the right lung with possibly mild infiltrate with air bronchogram below that. Patient was started on levofloxacin and Zosyn in the ER. Patient had a procalcitonin which is not elevated. Patient had any fever or chills. Patient had a history of esophageal cancer status post chemoradiation therapy patient is still on Keytruda. Patient is mildly hyponatremic at 132. Subjective: 02/05/25: Patient seen at bedside. No significant overnight events. States his breathing is still a little labored but improving. 02/06/2025: Patient seen at bedside. No significant overnight events. Reports his breathing still is slightly difficult, states it is better than before. Patient has no other complaints or concerns this time. 02/07/2025: Patient seen at bedside. No significant overnight events. States his breathing is significantly improved after receiving bronchoscopy with biopsies this morning. Patient has no other complaints concerns at this time. 02/08/2025: Patient seen at bedside no significant overnight events, patient had bronchoscopy yesterday today patient is saying this is the best he has felt since admission. Reports that he rapidly desaturates upon exertion however feels like he has more energy today Pertinent positives and negatives discussed above, a complete review of systems was preformed and all the other sytems were negative. Vitals Signs Reveiwed. GENERAL: The patient is alert and oriented x3, not in any acute distress. Well developed, well nourished. HEENT: Pupils are round and equally reacting to light. EOMI. No scleral icterus. No conjunctival pallor. Normocephalic, atraumatic. No pharyngeal erythema. No thyromegaly. CARDIOVASCULAR: S1 and S2 present. No murmurs, rubs, or gallops. PULMONARY: Improved air movement bilaterally, decreased wheezing auscultated compared to yesterday but still present ABDOMEN: Soft, nontender, nondistended, normoactive bowel sounds. No palpable organomegaly. MUSCULOSKELETAL: No joint swelling or deformity. EXTREMITIES: No cyanosis, clubbing, or pedal edema. NEUROLOGICAL: Gross neurological examination did not reveal any focal deficits. SKIN: No rashes. Data Reveiwed Today: Patient Labs: WBC 9.19, hemoglobin 11.1, platelets 180, sodium 137, potassium 4.3, bicarb 20.2, BUN 7.7, creatinine 0.6, and glucose 87. Imaging: No new imaging. Assessment and plan #Acute hypoxic respiratory failure requiring 4 L of oxygen: Patient has bronchiectasis and possibly radiation induced lung damage rather than pneumonia. Patient has mild airspace consolidation probably from his previous pneumonia. -Status post bronchoscopy with biopsies today, patient breathing better although not requiring 6 L oxygen likely secondary to anesthesia - Will resume Eliquis in 24 hours - PT OT consulted - Tube feeds resumed till midnight tonight (02/06) - Patient is receiving Zosyn (day 5) - Metastatic esophageal cancer status post chemoradiation therapy presently on immunotherapy with Keytruda - Chronic dysphagia for which patient has a PEG tube - Mild leukocytosis can be reactive or can be secondary to pneumonia or bronchiectasis - COPD without any significant acute exacerbation - Hypertension: cont. to hold antihypertensive medication as BP has been wnl limits since admission - Anxiety/depression - cleared by speech therapy for PO intake with regular diet with thin liquids while seated in upright position -Had a history of COPD and alcohol abuse which are not issues now -Recent pulmonary embolism for which patient is on Eliquis which was resumed - Add IV Solu-Medrol 40 mg Q6 postop per pulmonology - Keep patient at 6 L NC F NS 100 cc/hr E none N tube feedings DVT ppx: Eliquis GI ppx: None Code Status: Full code Anticipated discharge place: To home Anticipated discharge time: Pending clinical course Attestation/ Senior Market Intelligence Consultant Note: Attestation to Progress Note, Participation (I saw and evaluated the patient with the Resident, and I reviewed and discussed the patient with the Resident and agree with the Resident's findings and plans as documented above., management reviewed and discussed), I agree with findings & plan, Provider Signature (CHRIS BERMAN, [facility]). Objective - Vital Signs Vital signs: Vital Signs Temp 97.9 F 02/08/25 07:15 Pulse 55 L 02/08/25 07:15 Resp 16 02/08/25 07:15 BP 130/70 02/08/25 07:15 Pulse Ox 95 02/08/25 07:15 FiO2 Intake & Output 02/07/25 02/08/25 02/08/25 18:59 06:59 18:59 Intake Total 2500 600 1558 Output Total 1300 1050 Balance 1200 -450 1558 Weight 75 kg Intake: IV 400 Oral 2100 1558 Other 600 Output: Urine 1300 1050 Other: Voiding Method External Catheter External Catheter - Labs CBC & Chem 7: 02/16/25 04:29 02/16/25 04:29 Labs: Abnormal Lab Results - Last 24 Hours (Table) 02/08/25 02/08/25 Range/Units 08:28 08:28 RBC 3.82 L (4.40-5.60) 10*6/uL Hgb 10.8 L D (13.0-17.0) g/dL Hct 32.6 L (39.6-50.0) % Lymphocytes # 0.33 L (0.90-5.00) 10*3/uL Monocytes # 0.15 L (0.20-1.00) 10*3/uL Eosinophils # 0.00 L (0.04-0.35) 10*3/uL Chloride 109 H (98-107) mmol/L Creatinine 0.48 L (0.66-1.25) mg/dL Glucose 187 H (74-99) mg/dL Total Protein 5.0 L (6.3-8.2) g/dL Albumin 2.6 L (3.5-5.0) g/dL Microbiology - Last 24 Hours (Table) 02/07/25 08:50 Gram Stain - Preliminary Bronchoalviolar Lavage - Right 02/04/25 04:05 Blood Culture - Preliminary Blood
--- NOTE | 2025-02-08 12:53 | P.PN ---
Subjective Progress Note Date: 02/08/25 Patient is a 59-year-old male with past medical history significant for COPD, former heavy tobacco use, former alcohol abuse, remote oral cancer with previous reconstructive surgery. More recently, diagnosed with metastatic gastroesophageal cancer approximately 3 years ago. Status post chemoradiation, currently maintained on Keytruda. His oncologist is Dr. Rios. He has chronic dysphagia and has a PEG tube. Still has oral intake. Patient brought in by EMS early this morning. He had significant shortness of breath. Reportedly, released from [facility] approximately 1-1/2 weeks ago with bilateral pneumonia. He finished his antibiotics outpatient. Also, diagnosed with pulmonary embolism and started on Eliquis. Workup in the emergency department including a chest CT angiogram which did not show any evidence of pulmonary embolism. There is extensive bilateral airspace consolidation concerning for multilobar pneumonia. Chronic underlying appearance with bronchiectasis concerning for underlying lung scarring and probable post- treatment changes. No prior imaging available for comparison. CBC: WBC count 11.18, hemoglobin 14.2, platelets 224. CMP: Sodium 132, potassium 4.1, chloride 96, serum bicarb 26, BUN 21, creatinine 0.54, glucose 112. Lactic 2.7 down to 1.8. LFTs unremarkable. Troponin less than 0.012. NT proBNP 303. Patient currently being evaluated emergency department. Nontoxic appearance. States that shortness of breath developed in the last 24 hours. No significant coughing. No significant sputum production or hemoptysis. No fevers or chills. He has chronic issues with dysphagia. Has PEG tube, but still has oral intake. He has been started empirically on Levaquin and Zosyn in the ED. Nonlocalized chest pain. No palpitations, syncopal events, lower extremity edema. Normal saline infusing at 100 mL/h. Current vital signs: Temperature 99.4 F, heart rate 92 bpm, blood pressure 136/89 mmHg, nontachypneic, SpO2 recorded at 97% on 4 L/min nasal cannula. 02/05/2025, the patient is clinically unchanged. We reviewed the CAT scan of the chest and compared to the earlier CAT scans that was done at [facility]. Discussed the case also with his oncologist and the patient will need a bronchoscopy and transbronchial biopsies and transbronchial needle aspirate of subcarinal lymph node. The patient is afebrile. White cell count 11.7. Hemoglobin 9.4. Electrolytes all within normal limits. Procalcitonin level is 0.15. Remains on broad-spectrum antibiotics to IV Zosyn. Remains on IV fluids. Coagulations currently on hold in preparation for bronchoscopy to be done in a.m. He remains on 4 L of oxygen by nasal cannula with a pulse ox of 98%. 02/06/2025, clinically unchanged The patient was taken off anticoagulation. Bronchoscopy is to be done tomorrow morning. Meanwhile, he remains on IV Zosyn. Oxygenation remains unchanged and the patient remains on O2 at 3 L with a pulse ox of 93%. Afebrile. Hemodynamically stable. White cell count at 9.1 with a hemoglobin 11.1 and a platelet count of 180. BUN is 7 with a creatinine of 0.6. Sodium levels at 137. Blood culture has been negative. On 02/07/2025, the patient is being seen for a follow-up. Overall condition is essentially unchanged. He remains on oxygen and currently is on 60s of oxygen nasal cannula with a pulse ox of 97%. Bronchoscopy was performed today. I performed transbronchial biopsy of the right upper lobe. In addition, I per formed endobronchial ultrasound and transbronchial needle aspirate of subcarinal lymph node endobronchial lavage of the right upper lobe. Post bronchoscopy chest x-ray showed similar multifocal airspace disease. No evidence of any complication or pneumothorax postprocedure. Noted, the patient anticoagulation can be resumed following the procedure. Patient otherwise doing well. No new complaints. Remains on IV Zosyn. Will go ahead and add IV Solu-Medrol in addition. The white cell count is at 9.1 with a hemoglobin 11.1 and a platelet count of 180. Legionella urine antigen was negative. Electrolytes all within normal limits. Blood cultures been negative. The procalcitonin level is at 0.15. On today's evaluation of 02/08/2025, the patient is being seen for a follow-up. Resting comfortably in bed. Continues to have a cough. Bronchoscopy was completed yesterday without any complications. Bronchoalveolar lavage of the right upper lobe was done. In addition to that, the patient had transbronchial biopsy of the right upper lobe and endobronchial ultrasound and biopsy of the subcarinal lymph node. Results of the BAL are still pending. The patient is currently on IV Zosyn. The patient is also on IV Solu-Medrol 40 mg every 6 hours. Labs from today shows a white cell count of 7.3 with a hemoglobin of 10.8. BUN is 9 with a creatinine of 0.4 and a sodium level at 141. Will be following up on the patient's biopsy results. He remains on 40 of oxygen by nasal cannula. Anticoagulation was resumed. The patient is also receiving enteral feeding for nutritional support. Objective - Vital Signs Vital signs: Vital Signs Temp 97.9 F 02/08/25 07:15 Pulse 55 L 02/08/25 07:15 Resp 16 02/08/25 07:15 BP 130/70 02/08/25 07:15 Pulse Ox 95 02/08/25 07:15 FiO2 Intake & Output 02/07/25 02/08/25 02/08/25 18:59 06:59 18:59 Intake Total 2500 600 Output Total 1300 1050 Balance 1200 -450 Weight 75 kg Intake: IV 400 Oral 2100 Other 600 Output: Urine 1300 1050 Other: Voiding Method External Catheter External Catheter - Exam GENERAL EXAM: Alert, 59-year-old male, nontoxic appearance, comfortable in no apparent distress. HEAD: Normocephalic and atraumatic EYES: Normal reaction of pupils, equal size. NOSE: Clear with pink turbinates. THROAT: No erythema or exudates. NECK: No masses, no JVD. CHEST: No chest wall deformity. LUNGS: Equal air entry with scattered rhonchi. On 4 L/min nasal cannula. No conversational dyspnea or accessory muscle use.. CVS: S1 and S2 normal with no audible murmur, regular rhythm. No extra heart sounds ABDOMEN: PEG tube in place, active bowel sounds, no hepatosplenomegaly, no guarding or rigidity. SPINE: No scoliosis or deformity SKIN: No rashes CENTRAL NERVOUS SYSTEM: No focal deficits, tone is normal in all 4 extremities. EXTREMITIES: There is no peripheral edema, clubbing, or cyanosis. Peripheral pulses are intact. - Labs CBC & Chem 7: 02/08/25 08:28 02/08/25 08:28 Labs: Microbiology - Last 24 Hours (Table) 02/07/25 08:50 Gram Stain - Preliminary Bronchoalviolar Lavage - Right 02/04/25 04:05 Blood Culture - Preliminary Blood Assessment and Plan Assessment: Acute hypoxemic respiratory failure, currently on 6 L/min nasal cannula, chest CT angiogram which did not show any evidence of pulmonary embolism. There is extensive bilateral airspace consolidation, concerning for multilobar pneumonia. CTA of the chest was reviewed and compared to the earlier CAT scan that was done in [facility]. There is obvious progression in the interstitial and airspace opacities upper lobes bilaterally along with some areas of scarring and bronchiectasis. In addition, the patient has a bulky subcarinal lymph node. Rule out any chronic/persistent infections. Rule out malignancy or progression of esophageal cancer. Rule out immunotherapy related pneumonitis although this test is felt to be less likely. The patient is post bronchoscopy on 02/07/2025 with a BAL of the right upper lobe, transbronchial biopsy of the right upper lobe, transbronchial needle aspirate of the subcarinal lymph node. History of metastatic esophageal cancer status post chemoradiation, currently maintained on immunotherapy with Keytruda Remote history of oral cancer with previous reconstructive surgery Chronic dysphagia, with PEG tube History of pulmonary embolism, anticoagulated on Eliquis Chronic obstructive pulmonary disease Hypertension Former heavy tobacco use Former alcohol abuse Anxiety/depression Plan: Wean down FiO2 as tolerated to maintain saturation above 90% Continue albuterol nebs as needed Continue empiric antibiotics, currently on IV Zosyn Check procalcitonin level is mildly elevated Tube feeds Aspiration precautions Hold anticoagulation The case could be completed Continue IV Zosyn Continue IV Solu-Medrol 40 mg every 6 hours anticoagulants with Eliquis. Will be awaiting path report and microbial cultures.
[2025-02-08] MEDS: MORPHINE CONC SOLN 10mg/0.5mL ORAL SYRG PO PRN (18:42)
[2025-02-09 07:52] LABS: Basophils # (A) 0.01 X 10*3/uL (0.00-0.10); Basophils % (A) 0.1 %; Eosinophils # (A) 0 X 10*3/uL (0.04-0.35); Eosinophils % (A) 0 %; HCT 31.6 % (39.6-50.0); HGB 10.1 g/dL (13.0-17.0); Immature Grans, Automated 0.50 %; Lymphocytes # (A) 0.50 X 10*3/uL (0.90-5.00); Lymphocytes % (A) 4.6 %; MCH 28.1 pg (27.0-32.0); MCHC 32.0 g/dL (32.0-37.0); MCV 87.8 FL (80.0-97.0); Monocytes # (A) 0.47 X 10*3/uL (0.20-1.00); Monocytes % (A) 4.4 %; NRBC Per 100 WBC 0 X 10*3/uL (0.00-0.01); Neutrophils # (A) 9.75 X 10*3/uL (1.80-7.70); Neutrophils % (A) 90.4 %; Platelet Count 245 X 10*3/uL (140-440); RBC 3.60 X 10*6/uL (4.40-5.60); RDW 13.6 % (11.5-14.5); WBC 10.78 X 10*3/uL (4.50-10.00)
[2025-02-09 08:32] LABS: ALT 18 U/L (10-49); AST 37 U/L (14-35); Albumin 2.7 g/dL (3.8-4.9); Albumin/Globulin Ratio 1.59 Ratio (1.60-3.17); Alkaline Phosphatase 79 U/L (41-126); Anion Gap 8.70 mmol/L (4.00-12.00); BUN/Creat Ratio 19.33 Ratio (12.00-20.00); Blood Urea Nitrogen 11.6 mg/dL (9.0-27.0); Calcium 8.3 mg/dL (8.7-10.3); Carbon Dioxide 26.3 mmol/L (21.6-31.8); Chloride 108 mmol/L (96-109); Globulin 1.7 g/dL (1.6-3.3); Glucose 195 mg/dL (70-110); Potassium 4.1 mmol/L (3.5-5.5); Sodium 143 mmol/L (135-145); Total Protein 4.4 g/dL (6.2-8.2)
[2025-02-09] MEDS: APIXABAN 5 MG TAB PO SCH (08:42)
--- NOTE | 2025-02-09 12:00 | P.PN ---
Subjective Progress Note Date: 02/09/25 Patient is a 59-year-old male with past medical history significant for COPD, former heavy tobacco use, former alcohol abuse, remote oral cancer with previous reconstructive surgery. More recently, diagnosed with metastatic gastroesophageal cancer approximately 3 years ago. Status post chemoradiation, currently maintained on Keytruda. His oncologist is Dr. Rios. He has chronic dysphagia and has a PEG tube. Still has oral intake. Patient brought in by EMS early this morning. He had significant shortness of breath. Reportedly, released from [facility] approximately 1-1/2 weeks ago with bilateral pneumonia. He finished his antibiotics outpatient. Also, diagnosed with pulmonary embolism and started on Eliquis. Workup in the emergency department including a chest CT angiogram which did not show any evidence of pulmonary embolism. There is extensive bilateral airspace consolidation concerning for multilobar pneumonia. Chronic underlying appearance with bronchiectasis concerning for underlying lung scarring and probable post- treatment changes. No prior imaging available for comparison. CBC: WBC count 11.18, hemoglobin 14.2, platelets 224. CMP: Sodium 132, potassium 4.1, chloride 96, serum bicarb 26, BUN 21, creatinine 0.54, glucose 112. Lactic 2.7 down to 1.8. LFTs unremarkable. Troponin less than 0.012. NT proBNP 303. Patient currently being evaluated emergency department. Nontoxic appearance. States that shortness of breath developed in the last 24 hours. No significant coughing. No significant sputum production or hemoptysis. No fevers or chills. He has chronic issues with dysphagia. Has PEG tube, but still has oral intake. He has been started empirically on Levaquin and Zosyn in the ED. Nonlocalized chest pain. No palpitations, syncopal events, lower extremity edema. Normal saline infusing at 100 mL/h. Current vital signs: Temperature 99.4 F, heart rate 92 bpm, blood pressure 136/89 mmHg, nontachypneic, SpO2 recorded at 97% on 4 L/min nasal cannula. 02/05/2025, the patient is clinically unchanged. We reviewed the CAT scan of the chest and compared to the earlier CAT scans that was done at [facility]. Discussed the case also with his oncologist and the patient will need a bronchoscopy and transbronchial biopsies and transbronchial needle aspirate of subcarinal lymph node. The patient is afebrile. White cell count 11.7. Hemoglobin 9.4. Electrolytes all within normal limits. Procalcitonin level is 0.15. Remains on broad-spectrum antibiotics to IV Zosyn. Remains on IV fluids. Coagulations currently on hold in preparation for bronchoscopy to be done in a.m. He remains on 4 L of oxygen by nasal cannula with a pulse ox of 98%. 02/06/2025, clinically unchanged The patient was taken off anticoagulation. Bronchoscopy is to be done tomorrow morning. Meanwhile, he remains on IV Zosyn. Oxygenation remains unchanged and the patient remains on O2 at 3 L with a pulse ox of 93%. Afebrile. Hemodynamically stable. White cell count at 9.1 with a hemoglobin 11.1 and a platelet count of 180. BUN is 7 with a creatinine of 0.6. Sodium levels at 137. Blood culture has been negative. On 02/07/2025, the patient is being seen for a follow-up. Overall condition is essentially unchanged. He remains on oxygen and currently is on 60s of oxygen nasal cannula with a pulse ox of 97%. Bronchoscopy was performed today. I performed transbronchial biopsy of the right upper lobe. In addition, I perf ormed endobronchial ultrasound and transbronchial needle aspirate of subcarinal lymph node endobronchial lavage of the right upper lobe. Post bronchoscopy chest x-ray showed similar multifocal airspace disease. No evidence of any complication or pneumothorax postprocedure. Noted, the patient anticoagulation can be resumed following the procedure. Patient otherwise doing well. No new complaints. Remains on IV Zosyn. Will go ahead and add IV Solu-Medrol in addition. The white cell count is at 9.1 with a hemoglobin 11.1 and a platelet count of 180. Legionella urine antigen was negative. Electrolytes all within normal limits. Blood cultures been negative. The procalcitonin level is at 0.15. On today's evaluation of 02/08/2025, the patient is being seen for a follow-up. Resting comfortably in bed. Continues to have a cough. Bronchoscopy was completed yesterday without any complications. Bronchoalveolar lavage of the right upper lobe was done. In addition to that, the patient had transbronchial biopsy of the right upper lobe and endobronchial ultrasound and biopsy of the s ubcarinal lymph node. Results of the BAL are still pending. The patient is currently on IV Zosyn. The patient is also on IV Solu-Medrol 40 mg every 6 hours. Labs from today shows a white cell count of 7.3 with a hemoglobin of 10.8. BUN is 9 with a creatinine of 0.4 and a sodium level at 141. Will be following up on the patient's biopsy results. He remains on 40 of oxygen by nasal cannula. Anticoagulation was resumed. The patient is also receiving enteral feeding for nutritional support. The patient is seen today February 09, 2025 in follow-up on the regular medical floor. He is currently sitting up in bed. Awake and alert in no acute distress. Maintaining O2 saturations in the 90s on 6 L/min per nasal cannula. He has a productive cough of clear phlegm. He is dyspneic with conversation. Dyspneic with minimal exertion. He remains on Zosyn. He has been nourished with Jevity 1.5 at 70 mL/h. Bronchoalveolar lavage cultures revealed no growth. Biopsy is pending. Sputum culture revealed Lee Ann. Blood culture revealed no growth. White count 10.7. Hemoglobin 10.1. Platelets 245. Sodium 143. Potassium 4.1. Bicarb 26. BUN 12. Creatinine 0.6. Glucose 195. He remains on bronchodilators. Remains on Solu-Medrol. Morphine for pain control. Normal saline at 100 mL/h. Plan is to resume his Eliquis today. Objective - Vital Signs Vital signs: Vital Signs Temp 97.7 F 02/09/25 07:33 Pulse 61 02/09/25 07:33 Resp 17 02/09/25 07:33 BP 155/70 02/09/25 07:33 Pulse Ox 95 02/09/25 07:33 FiO2 Intake & Output 02/08/25 02/09/25 02/09/25 18:59 06:59 18:59 Intake Total 3338 540 200 Output Total 1500 1350 400 Balance 1838 -810 -200 Weight 77.5 kg Intake: Oral 3338 540 200 Output: Urine 1500 1350 400 Other: Voiding Method External Catheter External Catheter # Bowel Movements 1 - Exam GENERAL EXAM: Alert, pleasant 59-year-old male, on 6 L high flow nasal cannula, fairly comfortable in no apparent distress. HEAD: Normocephalic and atraumatic EYES: Normal reaction of pupils, equal size. NOSE: Clear with pink turbinates. THROAT: No erythema or exudates. NECK: No masses, no JVD. CHEST: No chest wall deformity. LUNGS: Equal air entry with scattered rhonchi. CVS: S1 and S2 normal with no audible murmur, regular rhythm. No extra heart sounds ABDOMEN: PEG tube in place, active bowel sounds, no hepatosplenomegaly, no guarding or rigidity. SPINE: No scoliosis or deformity SKIN: No rashes CENTRAL NERVOUS SYSTEM: No focal deficits, tone is normal in all 4 extremities. EXTREMITIES: There is no peripheral edema, clubbing, or cyanosis. Peripheral pulses are intact. - Labs CBC & Chem 7: 02/09/25 04:23 02/09/25 04:23 Labs: Abnormal Lab Results - Last 24 Hours (Table) 02/09/25 02/09/25 Range/Units 04:23 04:23 WBC 10.78 H (4.50-10.00) X 10*3/uL RBC 3.60 L (4.40-5.60) X 10*6/uL Hgb 10.1 L (13.0-17.0) g/dL Hct 31.6 L (39.6-50.0) % Immature Gran # 0.05 H (0.00-0.04) X 10*3/uL Neutrophils # 9.75 H (1.80-7.70) X 10*3/uL Lymphocytes # 0.50 L (0.90-5.00) X 10*3/uL Eosinophils # 0 L (0.04-0.35) X 10*3/uL Glucose 195 H (70-110) mg/dL Calcium 8.3 L (8.7-10.3) mg/dL Total Bilirubin <0.2 L (0.3-1.2) mg/dL AST 37 H (14-35) U/L Total Protein 4.4 L (6.2-8.2) g/dL Albumin 2.7 L (3.8-4.9) g/dL Albumin/Globulin Ratio 1.59 L (1.60-3.17) Ratio Microbiology - Last 24 Hours (Table) 02/07/25 08:50 Gram Stain - Final Bronchoalviolar Lavage - Right Bronchial Washings Culture - Final 02/06/25 18:13 Gram Stain - Final Sputum Sputum Culture - Final Lee Ann albicans 02/07/25 08:50 Acid Fast Bacilli Smear - Preliminary Bronchoalviolar Lavage - Right Assessment and Plan Assessment: Acute hypoxemic respiratory failure, currently on 6 L/min nasal cannula, chest CT angiogram which did not show any evidence of pulmonary embolism. There is extensive bilateral airspace consolidation, concerning for multilobar pneumonia. CTA of the chest was reviewed and compared to the earlier CAT scan that was done in [facility]. There is obvious progression in the interstitial and airspace opacities upper lobes bilaterally along with some areas of scarring and bronchiectasis. In addition, there is a bulky subcarinal lymph node. Rule out any chronic/persistent infections. Rule out malignancy or progression of esophageal cancer. Rule out immunotherapy related pneumonitis although this is felt to be less likely. Post bronchoscopy on 02/07/2025 with a BAL of the right upper lobe, transbronchial biopsy of the right upper lobe, transbronchial needle aspirate of the subcarinal lymph node. Cultures and pathology pending History of metastatic esophageal cancer status post chemoradiation, currently maintained on immunotherapy with Keytruda Remote history of oral cancer with previous reconstructive surgery Chronic dysphagia, with PEG tube History of pulmonary embolism, anticoagulated on Eliquis Chronic obstructive pulmonary disease Hypertension Former heavy tobacco use Former alcohol abuse Anxiety/depression Plan: The patient was seen and evaluated Labs and medications reviewed Microbiology reviewed Pathology pending Titrate down FiO2 as tolerated Continue albuterol nebs as needed Continue empiric antibiotics, currently on Zosyn Initial procalcitonin was negative Continue Jevity tube feedings for nutrition Aspiration precautions Resume anticoagulation Continue IV Solu-Medrol Morphine for pain control Remains on his antidepressant Increase his activity as tolerated We will continue to follow I have personally seen and examined the patient, performed the documentation and the assessment and plan as written. Number of minutes spent on the visit: 10 Dictation was produced using [employer]ation software. Please excuse any grammatical, word or spelling errors.
--- NOTE | 2025-02-09 14:35 | P.PN ---
Subjective Progress Note Date: 02/09/25 HPI: 59-year-old male known to me from his previous hospitalization at [facility] came in with complaints of shortness of breath cough without any significant sputum production. Patient had a recent pulmonary embolism followed by second hospitalization for pneumonia patient was given antibiotics and systemic steroids were discharged home. Patient appears to have had bilateral airspace consolidation and multilobar pneumonia. Patient came back here with complaints of shortness of breath. Patient does not have any fever, does have mild leukocytosis patient had a CT of the chest which showed bronchiectatic changes in the right lung with possibly mild infiltrate with air bronchogram below that. Patient was started on levofloxacin and Zosyn in the ER. Patient had a procalcitonin which is not elevated. Patient had any fever or chills. Patient had a history of esophageal cancer status post chemoradiation therapy patient is still on Keytruda. Patient is mildly hyponatremic at 132. Subjective: 02/05/25: Patient seen at bedside. No significant overnight events. States his breathing is still a little labored but improving. 02/06/2025: Patient seen at bedside. No significant overnight events. Reports his breathing still is slightly difficult, states it is better than before. Patient has no other complaints or concerns this time. 02/07/2025: Patient seen at bedside. No significant overnight events. States his breathing is significantly improved after receiving bronchoscopy with biopsies this morning. Patient has no other complaints concerns at this time. 02/08/2025: Patient seen at bedside no significant overnight events, patient had bronchoscopy yesterday today patient is saying this is the best he has felt since admission. Reports that he rapidly desaturates upon exertion however feels like he has more energy today 02/09/2025: Patient seen at bedside no significant overnight events has decreased to 5 L nasal cannula still not tolerating exertion. No other complaints at this Pertinent positives and negatives discussed above, a complete review of systems was preformed and all the other sytems were negative. Vitals Signs Reveiwed. GENERAL: The patient is alert and oriented x3, not in any acute distress. Well developed, well nourished. HEENT: Pupils are round and equally reacting to light. EOMI. No scleral icterus. No conjunctival pallor. Normocephalic, atraumatic. No pharyngeal erythema. No thyromegaly. CARDIOVASCULAR: S1 and S2 present. No murmurs, rubs, or gallops. PULMONARY: Improved air movement bilaterally, decreased wheezing auscultated compared to yesterday but still present ABDOMEN: Soft, nontender, nondistended, normoactive bowel sounds. No palpable organomegaly. MUSCULOSKELETAL: No joint swelling or deformity. EXTREMITIES: No cyanosis, clubbing, or pedal edema. NEUROLOGICAL: Gross neurological examination did not reveal any focal deficits. SKIN: No rashes. Data Reveiwed Today: Patient Labs: WBC 9.19, hemoglobin 11.1, platelets 180, sodium 137, potassium 4.3, bicarb 20.2, BUN 7.7, creatinine 0.6, and glucose 87. Imaging: No new imaging. Assessment and plan #Acute hypoxic respiratory failure requiring 4 L of oxygen: Patient has bronchiectasis and possibly radiation induced lung damage rather than pneumonia. Patient has mild airspace consolidation probably from his previous pneumonia. -Status post bronchoscopy with biopsies today, patient breathing better although not requiring 6 L oxygen likely secondary to anesthesia - Will resume Eliquis in 24 hours - PT OT consulted - Tube feeds resumed till midnight tonight (02/06) - Patient is receiving Zosyn (day 5) - Metastatic esophageal cancer status post chemoradiation therapy presently on immunotherapy with Keytruda - Chronic dysphagia for which patient has a PEG tube - Mild leukocytosis can be reactive or can be secondary to pneumonia or bronchiectasis - COPD without any significant acute exacerbation - Hypertension: cont. to hold antihypertensive medication as BP has been wnl limits since admission - Anxiety/depression - cleared by speech therapy for PO intake with regular diet with thin liquids while seated in upright position -Had a history of COPD and alcohol abuse which are not issues now -Recent pulmonary embolism for which patient is on Eliquis which was resumed - Add IV Solu-Medrol 40 mg Q6 postop per pulmonology - Down to 5 L nasal cannula titrate down as tolerated Increase activity as tolerated F NS 100 cc/hr E none N tube feedings DVT ppx: Eliquis GI ppx: None Code Status: Full code Anticipated discharge place: To home Anticipated discharge time: Pending clinical course Objective - Vital Signs Vital signs: Vital Signs Temp 97.7 F 02/09/25 07:33 Pulse 61 02/09/25 07:33 Resp 17 02/09/25 07:33 BP 155/70 02/09/25 07:33 Pulse Ox 95 02/09/25 07:33 FiO2 Intake & Output 02/08/25 02/09/25 02/09/25 18:59 06:59 18:59 Intake Total 3338 540 200 Output Total 1500 1350 400 Balance 1838 -810 -200 Weight 77.5 kg Intake: Oral 3338 540 200 Output: Urine 1500 1350 400 Other: Voiding Method External Catheter External Catheter External Catheter # Bowel Movements 1 - Labs CBC & Chem 7: 02/16/25 04:29 02/16/25 04:29 Labs: Abnormal Lab Results - Last 24 Hours (Table) 02/09/25 02/09/25 Range/Units 04:23 04:23 WBC 10.78 H (4.50-10.00) X 10*3/uL RBC 3.60 L (4.40-5.60) X 10*6/uL Hgb 10.1 L (13.0-17.0) g/dL Hct 31.6 L (39.6-50.0) % Immature Gran # 0.05 H (0.00-0.04) X 10*3/uL Neutrophils # 9.75 H (1.80-7.70) X 10*3/uL Lymphocytes # 0.50 L (0.90-5.00) X 10*3/uL Eosinophils # 0 L (0.04-0.35) X 10*3/uL Glucose 195 H (70-110) mg/dL Calcium 8.3 L (8.7-10.3) mg/dL Total Bilirubin <0.2 L (0.3-1.2) mg/dL AST 37 H (14-35) U/L Total Protein 4.4 L (6.2-8.2) g/dL Albumin 2.7 L (3.8-4.9) g/dL Albumin/Globulin Ratio 1.59 L (1.60-3.17) Ratio Microbiology - Last 24 Hours (Table) 02/04/25 04:05 Blood Culture - Final Blood 02/07/25 08:50 Gram Stain - Final Bronchoalviolar Lavage - Right Bronchial Washings Culture - Final 02/06/25 18:13 Gram Stain - Final Sputum Sputum Culture - Final Lee Ann albicans 02/07/25 08:50 Acid Fast Bacilli Smear - Preliminary Bronchoalviolar Lavage - Right Assessment and Plan Assessment: Attestation Attestation/ Rfid Engineer Note: Attestation to Progress Note, Participation (I saw and evaluated the patient with the Resident, and I reviewed and discussed the patient with the Resident and agree with the Resident's findings and plans as documented above., management reviewed and discussed), I agree with findings & plan, Provider Signature (LUIS BERMAN, JOESPH Patino
--- NOTE | 2025-02-09 22:31 | P.CONS ---
History of Present Illness - Reason for Consult Consult date: 02/09/25 PEG tube site cellulitis Requesting physician: Lisa Nash - Chief Complaint Shortness of breath and cough x days - History of Present Illness Patient is a 59-year-old male with a past medical history significant for COPD reflux hypertension PE history of esophageal cancer status post PEG tube placement in February 2022 patient presented to the hospital about a week ago for evaluation of increasing shortness of breath that apparently had been getting worse for few days before presentation to the hospital P denies any chest pain he did have a cough with increased sputum production patient denies having any nausea vomiting or any diarrhea on presentation to hospital he did have low-grade fever of 99.4 subsequently spiked a temperature of 100.7 on 02/05/2025 the patient has been afebrile since then patient not tachycardic or hypotensive he is currently on 6 L nasal oxygen patient did have elevated white count 11.74 with a white count down to 10.78 creatinine 0.7 liver enzymes normal electrolytes are normal patient did have chest x-ray followed by CT angiogram of the chest we did shows extensive bilateral airspace consolidation concerning for multifocal pneumonia patient has been status post bronchoscopy and lavage on 02/07/2025 those results are pending sputum did grow Lee Ann albicans patient has been treated with Zosyn patient apparently had some drainage around his PEG tube site and has been going on for a while though seem to be more concerning to admitting team today Y consult was placed patient been complaining of burning pain around the PEG tube site moderate intensity without radiation and did have moderate amount of drainage Review of Systems Positive point and negatives has been mentioned in the HPI, complete review of systems was performed and all other systems are negative Past Medical History Past Medical History: Cancer, COPD, GERD/Reflux, Hypertension, Pulmonary Embolus (PE) Additional Past Medical History / Comment(s): HX ORAL CANCER 2009, HIATAL HERNIA cancer esophagus ge junction peg tube inserted feb 2022. FAMILY HHX UNKNOWN-PT ADOPTED infusions immunotherapy keytruda History of Any Multi-Drug Resistant Organisms: None Reported Past Surgical History: Back Surgery, Cholecystectomy, Hernia Repair, Orthopedic Surgery Additional Past Surgical History / Comment(s): EGD, ORAL SURGERY FOR CANCER WITH LYMPHNODES REMOVED FROM MOUTH AND NECK peg placed 2021 rt shoulder roatator cuff repair. Past Anesthesia/Blood Transfusion Reactions: No Reported Reaction Additional Past Anesthesia/Blood Transfusion Reaction / Comm: no blood transfusion Past Psychological History: Depression Smoking Status: Former smoker Past Alcohol Use History: Abuse - Past Family History Father Family Medical History: Unable to Obtain Additional Family Medical History / Comment(s): adopted Medications and Allergies Home Medications Medication Instructions Recorded Confirmed Type buPROPion HCL [Wellbutrin XL] 300 mg PO HS 01/30/14 02/04/25 History Escitalopram [Lexapro] 20 mg PO HS 04/16/23 02/04/25 History MORPHINE ORAL ARIAN CONC 20mg/mL 5 mg PO Q6HR PRN 04/16/23 02/04/25 History [Roxanol Oral Soln Conc 20MG/ML] Morphine Sulfate [Ms Contin] 30 mg PO BID 04/16/23 02/04/25 History Bisoprolol-Hctz 10-6.25 mg [Ziac 1 tab PO BID 09/30/24 02/04/25 History 10-6.25 MG] ARIPiprazole [Abilify] 2 mg PO HS 02/04/25 02/04/25 History Apixaban [Eliquis] 5 mg PO BID 02/04/25 02/04/25 History Morphine Sulfate ER [Ms Contin] 15 mg PO BID 02/04/25 02/04/25 History QUEtiapine [SEROquel] 25 mg PO HS 02/04/25 02/04/25 History Allergies Allergy/AdvReac Type Severity Reaction Status Date / Time duloxetine [From Cymbalta] AdvReac Confusion Verified 02/04/25 09:54 Physical Exam Vitals: Vital Signs Temp Pulse Resp BP Pulse Ox 02/09/25 07:33 97.7 F 61 17 155/70 95 02/09/25 01:10 98.1 F 71 16 143/77 98 02/08/25 19:17 98.5 F 76 20 170/86 94 L Intake and Output 02/08/25 02/09/25 02/09/25 22:59 06:59 14:59 Intake Total 1240 540 200 Output Total 2500 350 400 Balance -1260 190 -200 Intake: Oral 1240 540 200 Output: Urine 2500 350 400 Other: Voiding Method External Catheter External Catheter # Bowel Movements 1 Weight 77.5 kg GENERAL DESCRIPTION: Middle-age male lying in bed, no distress. No tachypnea or accessory muscle of respiration use. HEENT: Shows Pallor , no scleral icterus. Oral mucous membrane is dry. No pharyngeal erythema or thrush NECK: Trachea central, no thyromegaly. LUNGS: Unlabored breathing. Decreased breath sound at the base HEART: S1, S2, regular rate and rhythm. No loud murmur ABDOMEN: Soft, PEG tube site with minimal surrounding erythema and some drainage but no foul-smelling EXTREMITIES: No edema of feet. SKIN: No rash, no masses palpable. NEUROLOGICAL: The patient is awake, alert, oriented x3, mood and affect normal. Results CBC & Chem 7: 02/09/25 04:23 02/09/25 04:23 Labs: Abnormal Lab Results - Last 24 Hours (Table) 02/09/25 02/09/25 Range/Units 04:23 04:23 WBC 10.78 H (4.50-10.00) X 10*3/uL RBC 3.60 L (4.40-5.60) X 10*6/uL Hgb 10.1 L (13.0-17.0) g/dL Hct 31.6 L (39.6-50.0) % Immature Gran # 0.05 H (0.00-0.04) X 10*3/uL Neutrophils # 9.75 H (1.80-7.70) X 10*3/uL Lymphocytes # 0.50 L (0.90-5.00) X 10*3/uL Eosinophils # 0 L (0.04-0.35) X 10*3/uL Glucose 195 H (70-110) mg/dL Calcium 8.3 L (8.7-10.3) mg/dL Total Bilirubin <0.2 L (0.3-1.2) mg/dL AST 37 H (14-35) U/L Total Protein 4.4 L (6.2-8.2) g/dL Albumin 2.7 L (3.8-4.9) g/dL Albumin/Globulin Ratio 1.59 L (1.60-3.17) Ratio Microbiology - Last 24 Hours (Table) 02/07/25 08:50 Gram Stain - Final Bronchoalviolar Lavage - Right Bronchial Washings Culture - Final 02/06/25 18:13 Gram Stain - Final Sputum Sputum Culture - Final Lee Ann albicans 07/19/25 08:50 Acid Fast Bacilli Smear - Preliminary Bronchoalviolar Lavage - Right Assessment and Plan (1) Abdominal wall cellulitis Current Visit: Yes Status: Acute Code(s): L03.311 - CELLULITIS OF ABDOMINAL WALL SNOMED Code(s): 68879746 (2) Bilateral pneumonia Current Visit: Yes Status: Acute Code(s): J18.9 - PNEUMONIA, UNSPECIFIED ORGANISM SNOMED Code(s): 729086610 Plan: 1patient with initially presented hospital with increasing shortness of breath and cough did have evidence of bilateral consolidation status post bronchoscopy and lavage blood culture currently pending initial sputum with Lee Ann albicans 2patient with PEG tube site erythema and drainage more likely related to irritation from the gastric secretions with secondary bacterial cellulitis less likely but not entirely excluded .3-local culture have been obtained we will guide further antibiotic therapy and will apply Triad cream around the PEG tube site for protection of underlying skin 4-continue with Zosyn while waiting for the culture to finalize . We will follow on clinical condition and cultures to further adjust medication if needed Thank you for this consultation we will follow the patient along with you Dictation was produced using [employer] dictation software. please excuse any grammatical, word or spelling errors. Time with Patient: Greater than 30
[2025-02-10] MEDS ORDERED: IPRATROPIUM-ALBUTEROL 3 ML NEB INHALATION PRN (09:11)
--- NOTE | 2025-02-10 09:17 | P.PN ---
Subjective Progress Note Date: 02/10/25 Patient is a 59-year-old male with past medical history significant for COPD, former heavy tobacco use, former alcohol abuse, remote oral cancer with previous reconstructive surgery. More recently, diagnosed with metastatic gastroesophageal cancer approximately 3 years ago. Status post chemoradiation, currently maintained on Keytruda. His oncologist is Dr. Rios. He has chronic dysphagia and has a PEG tube. Still has oral intake. Patient brought in by EMS early this morning. He had significant shortness of breath. Reportedly, released from [facility] approximately 1-1/2 weeks ago with bilateral pneumonia. He finished his antibiotics outpatient. Also, diagnosed with pulmonary embolism and started on Eliquis. Workup in the emergency department including a chest CT angiogram which did not show any evidence of pulmonary embolism. There is extensive bilateral airspace consolidation concerning for multilobar pneumonia. Chronic underlying appearance with bronchiectasis concerning for underlying lung scarring and probable post- treatment changes. No prior imaging available for comparison. CBC: WBC count 11.18, hemoglobin 14.2, platelets 224. CMP: Sodium 132, potassium 4.1, chloride 96, serum bicarb 26, BUN 21, creatinine 0.54, glucose 112. Lactic 2.7 down to 1.8. LFTs unremarkable. Troponin less than 0.012. NT proBNP 303. Patient currently being evaluated emergency department. Nontoxic appearance. States that shortness of breath developed in the last 24 hours. No significant coughing. No significant sputum production or hemoptysis. No fevers or chills. He has chronic issues with dysphagia. Has PEG tube, but still has oral intake. He has been started empirically on Levaquin and Zosyn in the ED. Nonlocalized chest pain. No palpitations, syncopal events, lower extremity edema. Normal saline infusing at 100 mL/h. Current vital signs: Temperature 99.4 F, heart rate 92 bpm, blood pressure 136/89 mmHg, nontachypneic, SpO2 recorded at 97% on 4 L/min nasal cannula. 02/05/2025, the patient is clinically unchanged. We reviewed the CAT scan of the chest and compared to the earlier CAT scans that was done at [facility]. Discussed the case also with his oncologist and the patient will need a bronchoscopy and transbronchial biopsies and transbronchial needle aspirate of subcarinal lymph node. The patient is afebrile. White cell count 11.7. Hemoglobin 9.4. Electrolytes all within normal limits. Procalcitonin level is 0.15. Remains on broad-spectrum antibiotics to IV Zosyn. Remains on IV fluids. Coagulations currently on hold in preparation for bronchoscopy to be done in a.m. He remains on 4 L of oxygen by nasal cannula with a pulse ox of 98%. 02/06/2025, clinically unchanged The patient was taken off anticoagulation. Bronchoscopy is to be done tomorrow morning. Meanwhile, he remains on IV Zosyn. Oxygenation remains unchanged and the patient remains on O2 at 3 L with a pulse ox of 93%. Afebrile. Hemodynamically stable. White cell count at 9.1 with a hemoglobin 11.1 and a platelet count of 180. BUN is 7 with a creatinine of 0.6. Sodium levels at 137. Blood culture has been negative. On 02/07/2025, the patient is being seen for a follow-up. Overall condition is essentially unchanged. He remains on oxygen and currently is on 60s of oxygen nasal cannula with a pulse ox of 97%. Bronchoscopy was performed today. I performed transbronchial biopsy of the right upper lobe. In addition, I perf ormed endobronchial ultrasound and transbronchial needle aspirate of subcarinal lymph node endobronchial lavage of the right upper lobe. Post bronchoscopy chest x-ray showed similar multifocal airspace disease. No evidence of any complication or pneumothorax postprocedure. Noted, the patient anticoagulation can be resumed following the procedure. Patient otherwise doing well. No new complaints. Remains on IV Zosyn. Will go ahead and add IV Solu-Medrol in addition. The white cell count is at 9.1 with a hemoglobin 11.1 and a platelet count of 180. Legionella urine antigen was negative. Electrolytes all within normal limits. Blood cultures been negative. The procalcitonin level is at 0.15. On today's evaluation of 02/08/2025, the patient is being seen for a follow-up. Resting comfortably in bed. Continues to have a cough. Bronchoscopy was completed yesterday without any complications. Bronchoalveolar lavage of the right upper lobe was done. In addition to that, the patient had transbronchial biopsy of the right upper lobe and endobronchial ultrasound and biopsy of the s ubcarinal lymph node. Results of the BAL are still pending. The patient is currently on IV Zosyn. The patient is also on IV Solu-Medrol 40 mg every 6 hours. Labs from today shows a white cell count of 7.3 with a hemoglobin of 10.8. BUN is 9 with a creatinine of 0.4 and a sodium level at 141. Will be following up on the patient's biopsy results. He remains on 40 of oxygen by nasal cannula. Anticoagulation was resumed. The patient is also receiving enteral feeding for nutritional support. The patient is seen today February 09, 2025 in follow-up on the regular medical floor. He is currently sitting up in bed. Awake and alert in no acute distress. Maintaining O2 saturations in the 90s on 6 L/min per nasal cannula. He has a productive cough of clear phlegm. He is dyspneic with conversation. Dyspneic with minimal exertion. He remains on Zosyn. He has been nourished with Jevity 1.5 at 70 mL/h. Bronchoalveolar lavage cultures revealed no growth. Biopsy is pending. Sputum culture revealed Lee Ann. Blood culture revealed no growth. White count 10.7. Hemoglobin 10.1. Platelets 245. Sodium 143. Potassium 4.1. Bicarb 26. BUN 12. Creatinine 0.6. Glucose 195. He remains on bronchodilators. Remains on Solu-Medrol. Morphine for pain control. Normal saline at 100 mL/h. Plan is to resume his Eliquis today. The patient is seen today February 10, 2025 in follow-up on the regular medical floor. He is awake and alert in no acute distress. Sitting up in bed having breakfast. Tolerating soft foods. Continues to be nourished with Jevity at 70 mL/h. He states he is breathing easier today compared to yesterday. He appears more comfortable. Less dyspnea with conversation. Less dyspnea with exertion. Still requiring 5 L high flow nasal cannula to maintain O2 saturation in the low 90s. He has been afebrile. Hemodynamically stable. Bronchial wash cultures revealed no growth. Blood culture revealed no growth. Sputum culture with Lee Ann. Abdominal wound culture with Lee Ann albicans. No new labs today. He remains on albuterol as needed. Continued on Solu-Medrol. Continued on Zosyn. Anticoagulated with Eliquis. Continued on his anxiety/depression medications. Objective - Vital Signs Vital signs: Vital Signs Temp 98.5 F 02/10/25 01:16 Pulse 45 L 02/10/25 04:27 Resp 20 02/10/25 01:16 BP 137/75 02/10/25 04:27 Pulse Ox 94 L 02/10/25 01:16 FiO2 Intake & Output 02/09/25 02/10/25 02/10/25 18:59 06:59 18:59 Intake Total 450 540 240 Output Total 700 1200 Balance -250 -660 240 Weight 77.5 kg 80.5 kg Intake: Oral 450 540 240 Output: Urine 700 1200 Other: Voiding Method External Catheter External Catheter # Voids 1 - Exam GENERAL EXAM: Awake, alert 59-year-old male, on 5 L high flow nasal cannula, comfortable in no apparent distress. HEAD: Normocephalic and atraumatic EYES: Normal reaction of pupils, equal size. NOSE: Clear with pink turbinates. THROAT: No erythema or exudates. NECK: No masses, no JVD. CHEST: No chest wall deformity. LUNGS: Equal air entry with scattered rhonchi. CVS: S1 and S2 normal with no audible murmur, regular rhythm. No extra heart sounds ABDOMEN: PEG tube in place, active bowel sounds, no hepatosplenomegaly, no guarding or rigidity. SPINE: No scoliosis or deformity SKIN: No rashes CENTRAL NERVOUS SYSTEM: No focal deficits, tone is normal in all 4 extremities. EXTREMITIES: There is no peripheral edema, clubbing, or cyanosis. Peripheral pulses are intact. - Labs CBC & Chem 7: 02/09/25 04:23 02/09/25 04:23 Labs: Microbiology - Last 24 Hours (Table) 02/09/25 11:26 Gram Stain - Preliminary Abdomen Wound Culture - Preliminary Lee Ann albicans 02/04/25 04:05 Blood Culture - Final Blood 02/07/25 08:50 Gram Stain - Final Bronchoalviolar Lavage - Right Bronchial Washings Culture - Final 02/06/25 18:13 Gram Stain - Final Sputum Sputum Culture - Final Lee Ann albicans Assessment and Plan Assessment: Acute hypoxemic respiratory failure, currently on 6 L/min nasal cannula, chest CT angiogram which did not show any evidence of pulmonary embolism. There is extensive bilateral airspace consolidation, concerning for multilobar pneumonia. CTA of the chest was reviewed and compared to the earlier CAT scan that was done in [facility]. There is obvious progression in the interstitial and airspace opacities upper lobes bilaterally along with some areas of scarring and bronchiectasis. In addition, there is a bulky subcarinal lymph node. Rule out any chronic/persistent infections. Rule out malignancy or progression of esophageal cancer. Rule out immunotherapy related pneumonitis although this is felt to be less likely. Post bronchoscopy on 02/07/2025 with a BAL of the right upper lobe, transbronchial biopsy of the right upper lobe, transbronchial needle aspirate of the subcarinal lymph node. Cultures revealed no growth and pathology pending History of metastatic esophageal cancer status post chemoradiation, currently maintained on immunotherapy with Keytruda Remote history of oral cancer with previous reconstructive surgery Chronic dysphagia, with PEG tube History of pulmonary embolism, anticoagulated on Eliquis Chronic obstructive pulmonary disease Hypertension Former heavy tobacco use Former alcohol abuse Anxiety/depression Plan: The patient was seen and evaluated Microbiology and medications reviewed Bronchial wash cultures revealed no growth Pathology pending Titrate down the FiO2 as tolerated Add a flutter valve Discontinue albuterol Add DuoNeb inhalations Continue Zosyn Continue Jevity tube feedings for nutrition Aspiration precautions Continue Eliquis Continue IV Solu-Medrol Morphine for pain control Remains on his antidepressants Increase his activity as tolerated Working with physical therapy Follow-up chest x-ray in a.m. Follow-up labs in a.m. May need subacute rehabilitation at discharge This patient was seen independently by the pulmonary nurse practitioner addressing pulmonary issues I have personally seen and examined the patient, performed the documentation and the assessment and plan as written. Number of minutes spent on the visit: 25 Dictation was produced using [employer] dictation software. Please excuse any grammatical, word or spelling errors.
[2025-02-10] MEDS: IPRATROPIUM-ALBUTEROL 3 ML NEB INHALATION SCH (11:27)
--- NOTE | 2025-02-10 15:17 | P.PN ---
Subjective Progress Note Date: 02/10/25 HPI: 59-year-old male known to me from his previous hospitalization at [facility] came in with complaints of shortness of breath cough without any significant sputum production. Patient had a recent pulmonary embolism followed by second hospitalization for pneumonia patient was given antibiotics and systemic steroids were discharged home. Patient appears to have had bilateral airspace consolidation and multilobar pneumonia. Patient came back here with complaints of shortness of breath. Patient does not have any fever, does have mild leukocytosis patient had a CT of the chest which showed bronchiectatic changes in the right lung with possibly mild infiltrate with air bronchogram below that. Patient was started on levofloxacin and Zosyn in the ER. Patient had a procalcitonin which is not elevated. Patient had any fever or chills. Patient had a history of esophageal cancer status post chemoradiation therapy patient is still on Keytruda. Patient is mildly hyponatremic at 132. Subjective: 02/05/25: Patient seen at bedside. No significant overnight events. States his breathing is still a little labored but improving. 02/06/2025: Patient seen at bedside. No significant overnight events. Reports his breathing still is slightly difficult, states it is better than before. Patient has no other complaints or concerns this time. 02/07/2025: Patient seen at bedside. No significant overnight events. States his breathing is significantly improved after receiving bronchoscopy with biopsies this morning. Patient has no other complaints concerns at this time. 02/08/2025: Patient seen at bedside no significant overnight events, patient had bronchoscopy yesterday today patient is saying this is the best he has felt since admission. Reports that he rapidly desaturates upon exertion however feels like he has more energy today 02/09/2025: Patient seen at bedside no significant overnight events has decreased to 5 L nasal cannula still not tolerating exertion. No other complaints at this 02/10/2025: Patient seen at bedside, still requires 5 L nasal cannula, desaturating as soon as he exerts himself otherwise improving slowly Pertinent positives and negatives discussed above, a complete review of systems was preformed and all the other sytems were negative. Vitals Signs Reveiwed. GENERAL: The patient is alert and oriented x3, not in any acute distress. Well developed, well nourished. HEENT: Pupils are round and equally reacting to light. EOMI. No scleral icterus. No conjunctival pallor. Normocephalic, atraumatic. No pharyngeal erythema. No thyromegaly. CARDIOVASCULAR: S1 and S2 present. No murmurs, rubs, or gallops. PULMONARY: Improved air movement bilaterally, decreased wheezing auscultated compared to yesterday but still present ABDOMEN: Soft, nontender, nondistended, normoactive bowel sounds. No palpable organomegaly. MUSCULOSKELETAL: No joint swelling or deformity. EXTREMITIES: No cyanosis, clubbing, or pedal edema. NEUROLOGICAL: Gross neurological examination did not reveal any focal deficits. SKIN: No rashes. Data Reveiwed Today: Patient Labs: WBC 9.19, hemoglobin 11.1, platelets 180, sodium 137, potassium 4.3, bicarb 20.2, BUN 7.7, creatinine 0.6, and glucose 87. Imaging: No new imaging. Assessment and plan #Acute hypoxic respiratory failure requiring 4 L of oxygen: Patient has bronchiectasis and possibly radiation induced lung damage rather than pneumonia. Patient has mild airspace consolidation probably from his previous pneumonia. -Status post bronchoscopy with biopsies today, patient breathing better although not requiring 6 L oxygen likely secondary to anesthesia - Down to 5 L nasal cannula titrate down as tolerated Increase activity as tolerated - resume Eliquis - PT OT consulted - Patient is receiving Zosyn (day 6) - Metastatic esophageal cancer status post chemoradiation therapy presently on immunotherapy with Keytruda - Mild leukocytosis can be reactive or can be secondary to pneumonia or bronchiectasis - COPD without any significant acute exacerbation - Hypertension: cont. to hold antihypertensive medication as BP has been wnl limits since admission - Anxiety/depression - cleared by speech therapy for PO intake with regular diet with thin liquids while seated in upright position -Had a history of COPD and alcohol abuse which are not issues now -Recent pulmonary embolism for which patient is on Eliquis which was resumed - Add IV Solu-Medrol 40 mg Q6 postop per pulmonology E none N tube feedings DVT ppx: Eliquis GI ppx: None Code Status: Full code Anticipated discharge place: To home Anticipated discharge time: Pending clinical course Objective - Vital Signs Vital signs: Vital Signs Temp 97.6 F 02/10/25 13:43 Pulse 58 L 02/10/25 13:43 Resp 16 02/10/25 13:43 BP 155/80 02/10/25 13:43 Pulse Ox 95 02/10/25 13:43 FiO2 Intake & Output 02/09/25 02/10/25 02/10/25 18:59 06:59 18:59 Intake Total 050 091 4086 Output Total 700 1200 500 Balance -250 -660 646 Weight 77.5 kg 80.5 kg Intake: Oral 450 540 596 Tube Feeding 550 Output: Urine 700 1200 500 Other: Voiding Method External Catheter External Catheter # Voids 1 - Labs CBC & Chem 7: 02/16/25 04:29 02/16/25 04:29 Labs: Microbiology - Last 24 Hours (Table) 02/09/25 11:26 Gram Stain - Preliminary Abdomen Wound Culture - Preliminary Lee Ann albicans 02/04/25 04:05 Blood Culture - Final Blood Assessment and Plan Assessment: Attestation Attestation/ Customer Order Clerk Note: Attestation to Progress Note, Participation (I saw and evaluated the patient with the Resident, and I reviewed and discussed the patient with the Resident and agree with the Resident's findings and plans as documented above., management reviewed and discussed), I agree with findings & plan, Provider Signature (LUIS BERMAN, JOESPH Patino Time with Patient: Greater than 30
--- NOTE | 2025-02-10 15:18 | P.PN ---
Subjective Progress Note Date: 02/10/25 Principal diagnosis: Reason for follow-up is PEG tube site cellulitis Patient is a 59-year-old male with a past medical history significant for COPD reflux hypertension PE history of esophageal cancer status post PEG tube placement in February 2022 patient presented to the hospital about a week ago for evaluation of increasing shortness of breath has been diagnosed with a pneumonia also noticed to have drainage from his PEG tube site prompted this consultation. On today's evaluation that is 02/10/2025, Patient is afebrile this morning patient denies having any chest pain shortness of breath or any worsening cough, the patient is currently on room air, patient denies any abdominal pain and pain around the PEG tube site has slightly decreased. Patient did not have a lab draw today local culture obtained yesterday is growing Lee Ann Objective - Vital Signs Vital signs: Vital Signs Temp 97.6 F 02/10/25 13:43 Pulse 58 L 02/10/25 13:43 Resp 16 02/10/25 13:43 BP 155/80 02/10/25 13:43 Pulse Ox 95 02/10/25 13:43 FiO2 Intake & Output 02/09/25 02/10/25 02/10/25 18:59 06:59 18:59 Intake Total 281 688 5979 Output Total 700 1200 500 Balance -250 -660 646 Weight 77.5 kg 80.5 kg Intake: Oral 450 540 596 Tube Feeding 550 Output: Urine 700 1200 500 Other: Voiding Method External Catheter External Catheter # Voids 1 - Exam GENERAL DESCRIPTION: Middle aged male lying in bed in no distress RESPIRATORY SYSTEM: Unlabored breathing , decreased breath sounds at bases HEART: S1 S2 regular rate and rhythm , ABDOMEN: Soft , no tenderness EXTREMITIES: No edema feet - Labs CBC & Chem 7: 02/09/25 04:23 02/09/25 04:23 Labs: Microbiology - Last 24 Hours (Table) 02/09/25 11:26 Gram Stain - Preliminary Abdomen Wound Culture - Preliminary Lee Ann albicans 02/04/25 04:05 Blood Culture - Final Blood Assessment and Plan (1) Abdominal wall cellulitis Current Visit: Yes Status: Acute Code(s): L03.311 - CELLULITIS OF ABDOMINAL WALL SNOMED Code(s): 11176975 (2) Bilateral pneumonia Current Visit: Yes Status: Acute Code(s): J18.9 - PNEUMONIA, UNSPECIFIED ORGANISM SNOMED Code(s): 143092716 Plan: 1patient with initially presented hospital with increasing shortness of breath and cough did have evidence of bilateral consolidation status post bronchoscopy and lavage blood culture currently pending initial sputum with Lee Ann albicans 2patient with PEG tube site erythema and drainage more likely related to irritation from the gastric secretions with secondary bacterial cellulitis less likely but not entirely excluded .3-local culture currently growing Lee Ann possible GI gill patient is on SSRI currently indicating the use of Diflucan will apply nystatin cream around the PEG tube site and see clinical response 4-continue with Zosyn for his pneumonia Dictation was produced using real[employer] dictation software. please excuse any grammatical, word or spelling errors.
[2025-02-10] MEDS: NYSTATIN 100,000UNIT/GM CREAM 30 GM TUBE TOPICAL SCH (22:30)
--- NOTE | 2025-02-11 07:23 | XR ---
EXAMINATION TYPE: XR chest 1V portable DATE OF EXAM: 02/11/2025 7:10 AM COMPARISON: 02/07/2025 CLINICAL INDICATION: Male, 59 years old with history of Pneumonia, , FINDINGS: ACF hardware. Heart upper limits of normal in size. Irregular and coarse reticular and patchy bilater al lung opacities persist but have become slightly less confluent from prior exam. Anterior chest wal l injection port with subclavian access and catheter tip at the upper SVC. IMPRESSION: Extensive bilateral airspace disease persists but has become slightly less confluent from prior exam. [facility], Workstation: [email or web address], 02/11/2025 7:20 AM
[2025-02-11 08:03] LABS: Basophils # (A) 0.01 X 10*3/uL (0.00-0.10); Basophils % (A) 0.1 %; Eosinophils # (A) 0 X 10*3/uL (0.04-0.35); Eosinophils % (A) 0 %; HCT 34.3 % (39.6-50.0); HGB 11.0 g/dL (13.0-17.0); Immature Grans, Automated 0.80 %; Lymphocytes # (A) 0.52 X 10*3/uL (0.90-5.00); Lymphocytes % (A) 4.4 %; MCH 27.7 pg (27.0-32.0); MCHC 32.1 g/dL (32.0-37.0); MCV 86.4 FL (80.0-97.0); Monocytes # (A) 0.54 X 10*3/uL (0.20-1.00); Monocytes % (A) 4.6 %; NRBC Per 100 WBC 0 X 10*3/uL (0.00-0.01); Neutrophils # (A) 10.65 X 10*3/uL (1.80-7.70); Neutrophils % (A) 90.1 %; Platelet Count 279 X 10*3/uL (140-440); RBC 3.97 X 10*6/uL (4.40-5.60); RDW 13.3 % (11.5-14.5); WBC 11.81 X 10*3/uL (4.50-10.00)
[2025-02-11 08:32] LABS: BUN/Creat Ratio 23.33 Ratio (12.00-20.00); Blood Urea Nitrogen 14.0 mg/dL (9.0-27.0); Chloride 102 mmol/L (96-109); Glucose 200 mg/dL (70-110); Potassium 4.2 mmol/L (3.5-5.5); Sodium 139 mmol/L (135-145)
[2025-02-11 08:33] LABS: ALT 33 U/L (10-49); AST 39 U/L (14-35); Albumin 2.7 g/dL (3.8-4.9); Albumin/Globulin Ratio 1.35 Ratio (1.60-3.17); Alkaline Phosphatase 82 U/L (41-126); Anion Gap 8.50 mmol/L (4.00-12.00); Calcium 8.3 mg/dL (8.7-10.3); Carbon Dioxide 28.5 mmol/L (21.6-31.8); Globulin 2.0 g/dL (1.6-3.3); Total Protein 4.7 g/dL (6.2-8.2)
--- NOTE | 2025-02-11 11:10 | P.PN ---
Subjective Progress Note Date: 02/11/25 Patient is a 59-year-old male with past medical history significant for COPD, former heavy tobacco use, former alcohol abuse, remote oral cancer with previous reconstructive surgery. More recently, diagnosed with metastatic gastroesophageal cancer approximately 3 years ago. Status post chemoradiation, currently maintained on Keytruda. His oncologist is Dr. Rios. He has chronic dysphagia and has a PEG tube. Still has oral intake. Patient brought in by EMS early this morning. He had significant shortness of breath. Reportedly, released from [facility] approximately 1-1/2 weeks ago with bilateral pneumonia. He finished his antibiotics outpatient. Also, diagnosed with pulmonary embolism and started on Eliquis. Workup in the emergency department including a chest CT angiogram which did not show any evidence of pulmonary embolism. There is extensive bilateral airspace consolidation concerning for multilobar pneumonia. Chronic underlying appearance with bronchiectasis concerning for underlying lung scarring and probable post- treatment changes. No prior imaging available for comparison. CBC: WBC count 11.18, hemoglobin 14.2, platelets 224. CMP: Sodium 132, potassium 4.1, chloride 96, serum bicarb 26, BUN 21, creatinine 0.54, glucose 112. Lactic 2.7 down to 1.8. LFTs unremarkable. Troponin less than 0.012. NT proBNP 303. Patient currently being evaluated emergency department. Nontoxic appearance. States that shortness of breath developed in the last 24 hours. No significant coughing. No significant sputum production or hemoptysis. No fevers or chills. He has chronic issues with dysphagia. Has PEG tube, but still has oral intake. He has been started empirically on Levaquin and Zosyn in the ED. Nonlocalized chest pain. No palpitations, syncopal events, lower extremity edema. Normal saline infusing at 100 mL/h. Current vital signs: Temperature 99.4 F, heart rate 92 bpm, blood pressure 136/89 mmHg, nontachypneic, SpO2 recorded at 97% on 4 L/min nasal cannula. 02/05/2025, the patient is clinically unchanged. We reviewed the CAT scan of the chest and compared to the earlier CAT scans that was done at [facility]. Discussed the case also with his oncologist and the patient will need a bronchoscopy and transbronchial biopsies and transbronchial needle aspirate of subcarinal lymph node. The patient is afebrile. White cell count 11.7. Hemoglobin 9.4. Electrolytes all within normal limits. Procalcitonin level is 0.15. Remains on broad-spectrum antibiotics to IV Zosyn. Remains on IV fluids. Coagulations currently on hold in preparation for bronchoscopy to be done in a.m. He remains on 4 L of oxygen by nasal cannula with a pulse ox of 98%. 02/06/2025, clinically unchanged The patient was taken off anticoagulation. Bronchoscopy is to be done tomorrow morning. Meanwhile, he remains on IV Zosyn. Oxygenation remains unchanged and the patient remains on O2 at 3 L with a pulse ox of 93%. Afebrile. Hemodynamically stable. White cell count at 9.1 with a hemoglobin 11.1 and a platelet count of 180. BUN is 7 with a creatinine of 0.6. Sodium levels at 137. Blood culture has been negative. On 02/07/2025, the patient is being seen for a follow-up. Overall condition is essentially unchanged. He remains on oxygen and currently is on 60s of oxygen nasal cannula with a pulse ox of 97%. Bronchoscopy was performed today. I performed transbronchial biopsy of the right upper lobe. In addition, I perf ormed endobronchial ultrasound and transbronchial needle aspirate of subcarinal lymph node endobronchial lavage of the right upper lobe. Post bronchoscopy chest x-ray showed similar multifocal airspace disease. No evidence of any complication or pneumothorax postprocedure. Noted, the patient anticoagulation can be resumed following the procedure. Patient otherwise doing well. No new complaints. Remains on IV Zosyn. Will go ahead and add IV Solu-Medrol in addition. The white cell count is at 9.1 with a hemoglobin 11.1 and a platelet count of 180. Legionella urine antigen was negative. Electrolytes all within normal limits. Blood cultures been negative. The procalcitonin level is at 0.15. On today's evaluation of 02/08/2025, the patient is being seen for a follow-up. Resting comfortably in bed. Continues to have a cough. Bronchoscopy was completed yesterday without any complications. Bronchoalveolar lavage of the right upper lobe was done. In addition to that, the patient had transbronchial biopsy of the right upper lobe and endobronchial ultrasound and biopsy of the s ubcarinal lymph node. Results of the BAL are still pending. The patient is currently on IV Zosyn. The patient is also on IV Solu-Medrol 40 mg every 6 hours. Labs from today shows a white cell count of 7.3 with a hemoglobin of 10.8. BUN is 9 with a creatinine of 0.4 and a sodium level at 141. Will be following up on the patient's biopsy results. He remains on 40 of oxygen by nasal cannula. Anticoagulation was resumed. The patient is also receiving enteral feeding for nutritional support. The patient is seen today February 09, 2025 in follow-up on the regular medical floor. He is currently sitting up in bed. Awake and alert in no acute distress. Maintaining O2 saturations in the 90s on 6 L/min per nasal cannula. He has a productive cough of clear phlegm. He is dyspneic with conversation. Dyspneic with minimal exertion. He remains on Zosyn. He has been nourished with Jevity 1.5 at 70 mL/h. Bronchoalveolar lavage cultures revealed no growth. Biopsy is pending. Sputum culture revealed Lee Ann. Blood culture revealed no growth. White count 10.7. Hemoglobin 10.1. Platelets 245. Sodium 143. Potassium 4.1. Bicarb 26. BUN 12. Creatinine 0.6. Glucose 195. He remains on bronchodilators. Remains on Solu-Medrol. Morphine for pain control. Normal saline at 100 mL/h. Plan is to resume his Eliquis today. The patient is seen today February 10, 2025 in follow-up on the regular medical floor. He is awake and alert in no acute distress. Sitting up in bed having breakfast. Tolerating soft foods. Continues to be nourished with Jevity at 70 mL/h. He states he is breathing easier today compared to yesterday. He appears more comfortable. Less dyspnea with conversation. Less dyspnea with exertion. Still requiring 5 L high flow nasal cannula to maintain O2 saturation in the low 90s. He has been afebrile. Hemodynamically stable. Bronchial wash cultures revealed no growth. Blood culture revealed no growth. Sputum culture with Lee Ann. Abdominal wound culture with Lee Ann albicans. No new labs today. He remains on albuterol as needed. Continued on Solu-Medrol. Continued on Zosyn. Anticoagulated with Eliquis. Continued on his anxiety/depression medications. The patient is seen today February 11, 2025 in follow-up on the regular medical floor. He is currently sitting up in bed. Awake and alert in no acute distress. Feeling better today compared to yesterday. Not quite back to his baseline. Still with some dyspnea on minimal exertion. Currently maintaining good O2 saturations in the mid 90s on 5 L high flow nasal cannula. He is afebri le. Hemodynamically stable. Chest x-ray shows extensive bilateral airspace disease with some slight improvement. Bronchial wash cultures revealed no growth. Transbronchial biopsies were nondiagnostic. White count 11.8. Hemoglobin 11.0. Platelets 279. Sodium 139. Potassium 4.2. Bicarb 29. BUN 14. Creatinine 0.6. Glucose 200. He remains on DuoNeb inhalations, IV Solu- Medrol. Antibiotics in the form of Zosyn. Continued on Eliquis. He is being nourished with Jevity at 70 mL/h. Objective - Vital Signs Vital signs: Vital Signs Temp 97.5 F L 02/11/25 08:00 Pulse 67 02/11/25 08:13 Resp 16 02/11/25 08:00 BP 151/83 02/11/25 08:00 Pulse Ox 96 02/11/25 08:01 FiO2 Intake & Output 02/10/25 02/11/25 02/11/25 18:59 06:59 18:59 Intake Total 1834 600 240 Output Total 650 850 Balance 1184 -250 240 Weight 79.5 kg Intake: Oral 1284 240 Tube Feeding 550 Other 600 Output: Urine 650 850 Other: Voiding Method External Catheter External Catheter - Exam GENERAL EXAM: Awake, very pleasant 59-year-old male, on 5 L high flow nasal cannula, in no apparent distress. HEAD: Normocephalic and atraumatic EYES: Normal reaction of pupils, equal size. NOSE: Clear with pink turbinates. THROAT: No erythema or exudates. NECK: No masses, no JVD. CHEST: No chest wall deformity. LUNGS: Equal air entry with bilateral scattered rhonchi. CVS: S1 and S2 normal with no audible murmur, regular rhythm. No extra heart sounds ABDOMEN: PEG tube in place, active bowel sounds, no hepatosplenomegaly, no guarding or rigidity. SPINE: No scoliosis or deformity SKIN: No rashes CENTRAL NERVOUS SYSTEM: No focal deficits, tone is normal in all 4 extremities. EXTREMITIES: There is no peripheral edema, clubbing, or cyanosis. Peripheral pulses are intact. - Labs CBC & Chem 7: 02/11/25 05:35 02/11/25 05:35 Labs: Abnormal Lab Results - Last 24 Hours (Table) 02/11/25 02/11/25 Range/Units 05:35 05:35 WBC 11.81 H (4.50-10.00) X 10*3/uL RBC 3.97 L (4.40-5.60) X 10*6/uL Hgb 11.0 L (13.0-17.0) g/dL Hct 34.3 L (39.6-50.0) % Immature Gran # 0.09 H (0.00-0.04) X 10*3/uL Neutrophils # 10.65 H (1.80-7.70) X 10*3/uL Lymphocytes # 0.52 L (0.90-5.00) X 10*3/uL Eosinophils # 0 L (0.04-0.35) X 10*3/uL BUN/Creatinine Ratio 23.33 H (12.00-20.00) Ratio Glucose 200 H (70-110) mg/dL Calcium 8.3 L (8.7-10.3) mg/dL Total Bilirubin <0.2 L (0.3-1.2) mg/dL AST 39 H (14-35) U/L Total Protein 4.7 L (6.2-8.2) g/dL Albumin 2.7 L (3.8-4.9) g/dL Albumin/Globulin Ratio 1.35 L (1.60-3.17) Ratio Microbiology - Last 24 Hours (Table) 02/09/25 11:26 Gram Stain - Preliminary Abdomen Wound Culture - Preliminary Lee Ann albicans Assessment and Plan Assessment: Acute hypoxemic respiratory failure, currently on 6 L/min nasal cannula, chest CT angiogram which did not show any evidence of pulmonary embolism. There is extensive bilateral airspace consolidation, concerning for multilobar pneumonia. CTA of the chest was reviewed and compared to the earlier CAT scan that was [facility] in [facility]. There is obvious progression in the interstitial and airspace opacities upper lobes bilaterally along with some areas of scarring and bronchiectasis. In addition, there is a bulky subcarinal lymph node. Rule out any chronic/persistent infections. Rule out malignancy or progression of esophageal cancer. Rule out immunotherapy related pneumonitis although this is felt to be less likely. Post bronchoscopy on 02/07/2025 with a BAL of the right upper lobe, transbronchial biopsy of the right upper lobe, transbronchial needle aspirate of the subcarinal lymph node. Cultures revealed no growth and pathology was nondiagnostic History of metastatic esophageal cancer status post chemoradiation, currently maintained on immunotherapy with Keytruda Remote history of oral cancer with previous reconstructive surgery Chronic dysphagia, with PEG tube and being nourished with Jevity History of pulmonary embolism, anticoagulated on Eliquis Chronic obstructive pulmonary disease Hypertension Former heavy tobacco use Former alcohol abuse Anxiety/depression Plan: The patient was seen and evaluated Chest x-ray, labs and medications reviewed Bronchial wash cultures revealed no growth Biopsies were nondiagnostic Titrate down the FiO2 as tolerated He does have home oxygen in place Continue flutter valve Continue DuoNeb inhalations Continue Zosyn Continue Jevity tube feedings for nutrition Continue aspiration precautions Continue Eliquis Continue IV Solu-Medrol Morphine for pain control Remains on his antidepressants Increase his activity as tolerated Working with physical therapy May need subacute rehabilitation at discharge This patient was seen independently by the pulmonary nurse practitioner addressing pulmonary issues I have personally seen and examined the patient, performed the documentation and the assessment and plan as written. Number of minutes spent on the visit: 24 Dictation was produced using [email or web address] dictation software. Please excuse any grammatical, word or spelling errors.
--- NOTE | 2025-02-11 17:24 | P.PN ---
Subjective Progress Note Date: 02/11/25 HPI: 59-year-old male known to me from his previous hospitalization at [facility] came in with complaints of shortness of breath cough without any significant sputum production. Patient had a recent pulmonary embolism followed by second hospitalization for pneumonia patient was given antibiotics and systemic steroids were discharged home. Patient appears to have had bilateral airspace consolidation and multilobar pneumonia. Patient came back here with complaints of shortness of breath. Patient does not have any fever, does have mild leukocytosis patient had a CT of the chest which showed bronchiectatic changes in the right lung with possibly mild infiltrate with air bronchogram below that. Patient was started on levofloxacin and Zosyn in the ER. Patient had a procalcitonin which is not elevated. Patient had any fever or chills. Patient had a history of esophageal cancer status post chemoradiation therapy patient is still on Keytruda. Patient is mildly hyponatremic at 132. Subjective: 02/05/25: Patient seen at bedside. No significant overnight events. States his breathing is still a little labored but improving. 02/06/2025: Patient seen at bedside. No significant overnight events. Reports his breathing still is slightly difficult, states it is better than before. Patient has no other complaints or concerns this time. 02/07/2025: Patient seen at bedside. No significant overnight events. States his breathing is significantly improved after receiving bronchoscopy with biopsies this morning. Patient has no other complaints concerns at this time. 02/08/2025: Patient seen at bedside no significant overnight events, patient had bronchoscopy yesterday today patient is saying this is the best he has felt since admission. Reports that he rapidly desaturates upon exertion however feels like he has more energy today 02/09/2025: Patient seen at bedside no significant overnight events has decreased to 5 L nasal cannula still not tolerating exertion. No other complaints at this 02/10/2025: Patient seen at bedside, still requires 5 L nasal cannula, desaturating as soon as he exerts himself otherwise improving slowly 02/11/2025: Patient seen at bedside, still requiring 5L nasal cannula, not desaturating as fast, notice himself recovering faster. Pertinent positives and negatives discussed above, a complete review of systems was preformed and all the other sytems were negative. Vitals Signs Reveiwed. GENERAL: The patient is alert and oriented x3, not in any acute distress. Well developed, well nourished. HEENT: Pupils are round and equally reacting to light. EOMI. No scleral icterus. No conjunctival pallor. Normocephalic, atraumatic. No pharyngeal erythema. No thyromegaly. CARDIOVASCULAR: S1 and S2 present. No murmurs, rubs, or gallops. PULMONARY: Improved air movement bilaterally, decreased wheezing auscultated compared to yesterday but still present ABDOMEN: Soft, nontender, nondistended, normoactive bowel sounds. No palpable organomegaly. MUSCULOSKELETAL: No joint swelling or deformity. EXTREMITIES: No cyanosis, clubbing, or pedal edema. NEUROLOGICAL: Gross neurological examination did not reveal any focal deficits. SKIN: No rashes. Imaging: No new imaging. Assessment and plan #Acute hypoxic respiratory failure requiring 4 L of oxygen: Patient has bronchiectasis and possibly radiation induced lung damage rather than pneumonia. Patient has mild airspace consolidation probably from his previous pneumonia. -Status post bronchoscopy with biopsies today, patient breathing better although not requiring 6 L oxygen likely secondary to anesthesia - Down to 5 L nasal cannula titrate down as tolerated Increase activity as tolerated - plan for DC to subacute rehab - resume Eliquis - PT OT consulted - Patient is receiving Zosyn (day 6) - Metastatic esophageal cancer status post chemoradiation therapy presently on immunotherapy with Keytruda - Mild leukocytosis can be reactive or can be secondary to pneumonia or bronchiectasis - COPD without any significant acute exacerbation - Hypertension: cont. to hold antihypertensive medication as BP has been wnl limits since admission - Anxiety/depression - cleared by speech therapy for PO intake with regular diet with thin liquids while seated in upright position -Had a history of COPD and alcohol abuse which are not issues now -Recent pulmonary embolism for which patient is on Eliquis which was resumed - Add IV Solu-Medrol 40 mg Q6 postop per pulmonology E none N tube feedings DVT ppx: Eliquis GI ppx: None Code Status: Full code Anticipated discharge place: Subacute Rehab Anticipated discharge time: Pending clinical course Objective - Vital Signs Vital signs: Vital Signs Temp 97.7 F 02/11/25 01:23 Pulse 54 L 02/11/25 01:23 Resp 17 02/11/25 01:23 BP 137/72 02/11/25 01:23 Pulse Ox 97 02/11/25 01:23 FiO2 Intake & Output 02/10/25 02/11/25 02/11/25 18:59 06:59 18:59 Intake Total 1834 600 Output Total 650 850 Balance 1184 -250 Weight 79.5 kg Intake: Oral 1284 Tube Feeding 550 Other 600 Output: Urine 650 850 Other: Voiding Method External Catheter - Labs CBC & Chem 7: 02/16/25 04:29 02/16/25 04:29 Labs: Microbiology - Last 24 Hours (Table) 02/09/25 11:26 Gram Stain - Preliminary Abdomen Wound Culture - Preliminary Lee Ann albicans Assessment and Plan Assessment: Attestation Attestation/ Manager Of Medical Note: Attestation to Progress Note, Participation (I saw and evaluated the patient with the Resident, and I reviewed and discussed the patient with the Resident and agree with the Resident's findings and plans as documented above., management reviewed and discussed), I agree with findings & plan, Provider Signature (LUIS BERMAN, JOESPH Patino Time with Patient: Greater than 30
[2025-02-12 08:57] LABS: Basophils # (A) 0.01 10*3/uL (0.00-0.10); Basophils % (A) 0.1 %; Eosinophils # (A) 0.00 10*3/uL (0.04-0.35); Eosinophils % (A) 0.0 %; HCT 37.0 % (39.6-50.0); HGB 11.8 g/dL (13.0-17.0); Lymphocytes # (A) 0.55 10*3/uL (0.90-5.00); Lymphocytes % (A) 4.4 %; MCH 27.8 pg (27.0-32.0); MCHC 31.9 g/dL (32.0-37.0); MCV 87.3 fL (80.0-97.0); Monocytes # (A) 0.43 10*3/uL (0.20-1.00); Monocytes % (A) 3.4 %; Neutrophils # (A) 11.49 10*3/uL (1.80-7.70); Neutrophils % (A) 91.2 %; Platelet Count 303 10*3/uL (140-440); RBC 4.24 10*6/uL (4.40-5.60); RDW 13.6 % (11.5-14.5); WBC 12.59 10*3/uL (4.50-10.00)
[2025-02-12 09:10] LABS: ALT 50 U/L (4-49); AST 54 U/L (17-59); African American GFR (CKD) >90 (>60 ml/min/1.73 sqM); Albumin 2.7 g/dL (3.5-5.0); Albumin/Globulin Ratio 1.1; Alkaline Phosphatase 111 U/L (38-126); Anion Gap 5 mmol/L; Blood Urea Nitrogen 19 mg/dL (9-20); Calcium 9.0 mg/dL (8.4-10.2); Carbon Dioxide 34 mmol/L (22-30); Chloride 98 mmol/L (98-107); Globulin 2.4 g/dL; Glucose 145 mg/dL (74-99); Non-African American GFR(CKD) >90 (>60 ml/min/1.73 sqM); Potassium 4.6 mmol/L (3.5-5.1); Sodium 137 mmol/L (137-145); Total Protein 5.1 g/dL (6.3-8.2)
--- NOTE | 2025-02-12 11:37 | P.PN ---
Subjective Progress Note Date: 02/12/25 Patient is a 59-year-old male with past medical history significant for COPD, former heavy tobacco use, former alcohol abuse, remote oral cancer with previous reconstructive surgery. More recently, diagnosed with metastatic gastroesophageal cancer approximately 3 years ago. Status post chemoradiation, currently maintained on Keytruda. His oncologist is Dr. Rios. He has chronic dysphagia and has a PEG tube. Still has oral intake. Patient brought in by EMS early this morning. He had significant shortness of breath. Reportedly, released from [facility] approximately 1-1/2 weeks ago with bilateral pneumonia. He finished his antibiotics outpatient. Also, diagnosed with pulmonary embolism and started on Eliquis. Workup in the emergency department including a chest CT angiogram which did not show any evidence of pulmonary embolism. There is extensive bilateral airspace consolidation concerning for multilobar pneumonia. Chronic underlying appearance with bronchiectasis concerning for underlying lung scarring and probable post- treatment changes. No prior imaging available for comparison. CBC: WBC count 11.18, hemoglobin 14.2, platelets 224. CMP: Sodium 132, potassium 4.1, chloride 96, serum bicarb 26, BUN 21, creatinine 0.54, glucose 112. Lactic 2.7 down to 1.8. LFTs unremarkable. Troponin less than 0.012. NT proBNP 303. Patient currently being evaluated emergency department. Nontoxic appearance. States that shortness of breath developed in the last 24 hours. No significant coughing. No significant sputum production or hemoptysis. No fevers or chills. He has chronic issues with dysphagia. Has PEG tube, but still has oral intake. He has been started empirically on Levaquin and Zosyn in the ED. Nonlocalized chest pain. No palpitations, syncopal events, lower extremity edema. Normal saline infusing at 100 mL/h. Current vital signs: Temperature 99.4 F, heart rate 92 bpm, blood pressure 136/89 mmHg, nontachypneic, SpO2 recorded at 97% on 4 L/min nasal cannula. 02/05/2025, the patient is clinically unchanged. We reviewed the CAT scan of the chest and compared to the earlier CAT scans that was done at [facility]. Discussed the case also with his oncologist and the patient will need a bronchoscopy and transbronchial biopsies and transbronchial needle aspirate of subcarinal lymph node. The patient is afebrile. White cell count 11.7. Hemoglobin 9.4. Electrolytes all within normal limits. Procalcitonin level is 0.15. Remains on broad-spectrum antibiotics to IV Zosyn. Remains on IV fluids. Coagulations currently on hold in preparation for bronchoscopy to be done in a.m. He remains on 4 L of oxygen by nasal cannula with a pulse ox of 98%. 02/06/2025, clinically unchanged The patient was taken off anticoagulation. Bronchoscopy is to be done tomorrow morning. Meanwhile, he remains on IV Zosyn. Oxygenation remains unchanged and the patient remains on O2 at 3 L with a pulse ox of 93%. Afebrile. Hemodynamically stable. White cell count at 9.1 with a hemoglobin 11.1 and a platelet count of 180. BUN is 7 with a creatinine of 0.6. Sodium levels at 137. Blood culture has been negative. On 02/07/2025, the patient is being seen for a follow-up. Overall condition is essentially unchanged. He remains on oxygen and currently is on 60s of oxygen nasal cannula with a pulse ox of 97%. Bronchoscopy was performed today. I performed transbronchial biopsy of the right upper lobe. In addition, I perf ormed endobronchial ultrasound and transbronchial needle aspirate of subcarinal lymph node endobronchial lavage of the right upper lobe. Post bronchoscopy chest x-ray showed similar multifocal airspace disease. No evidence of any complication or pneumothorax postprocedure. Noted, the patient anticoagulation can be resumed following the procedure. Patient otherwise doing well. No new complaints. Remains on IV Zosyn. Will go ahead and add IV Solu-Medrol in addition. The white cell count is at 9.1 with a hemoglobin 11.1 and a platelet count of 180. Legionella urine antigen was negative. Electrolytes all within normal limits. Blood cultures been negative. The procalcitonin level is at 0.15. On today's evaluation of 02/08/2025, the patient is being seen for a follow-up. Resting comfortably in bed. Continues to have a cough. Bronchoscopy was completed yesterday without any complications. Bronchoalveolar lavage of the right upper lobe was done. In addition to that, the patient had transbronchial biopsy of the right upper lobe and endobronchial ultrasound and biopsy of the s ubcarinal lymph node. Results of the BAL are still pending. The patient is currently on IV Zosyn. The patient is also on IV Solu-Medrol 40 mg every 6 hours. Labs from today shows a white cell count of 7.3 with a hemoglobin of 10.8. BUN is 9 with a creatinine of 0.4 and a sodium level at 141. Will be following up on the patient's biopsy results. He remains on 40 of oxygen by nasal cannula. Anticoagulation was resumed. The patient is also receiving enteral feeding for nutritional support. The patient is seen today February 09, 2025 in follow-up on the regular medical floor. He is currently sitting up in bed. Awake and alert in no acute distress. Maintaining O2 saturations in the 90s on 6 L/min per nasal cannula. He has a productive cough of clear phlegm. He is dyspneic with conversation. Dyspneic with minimal exertion. He remains on Zosyn. He has been nourished with Jevity 1.5 at 70 mL/h. Bronchoalveolar lavage cultures revealed no growth. Biopsy is pending. Sputum culture revealed Lee Ann. Blood culture revealed no growth. White count 10.7. Hemoglobin 10.1. Platelets 245. Sodium 143. Potassium 4.1. Bicarb 26. BUN 12. Creatinine 0.6. Glucose 195. He remains on bronchodilators. Remains on Solu-Medrol. Morphine for pain control. Normal saline at 100 mL/h. Plan is to resume his Eliquis today. The patient is seen today February 10, 2025 in follow-up on the regular medical floor. He is awake and alert in no acute distress. Sitting up in bed having breakfast. Tolerating soft foods. Continues to be nourished with Jevity at 70 mL/h. He states he is breathing easier today compared to yesterday. He appears more comfortable. Less dyspnea with conversation. Less dyspnea with exertion. Still requiring 5 L high flow nasal cannula to maintain O2 saturation in the low 90s. He has been afebrile. Hemodynamically stable. Bronchial wash cultures revealed no growth. Blood culture revealed no growth. Sputum culture with Lee Ann. Abdominal wound culture with Lee Ann albicans. No new labs today. He remains on albuterol as needed. Continued on Solu-Medrol. Continued on Zosyn. Anticoagulated with Eliquis. Continued on his anxiety/depression medications. The patient is seen today February 11, 2025 in follow-up on the regular medical floor. He is currently sitting up in bed. Awake and alert in no acute distress. Feeling better today compared to yesterday. Not quite back to his baseline. Still with some dyspnea on minimal exertion. Currently maintaining good O2 saturations in the mid 90s on 5 L high flow nasal cannula. He is afebri le. Hemodynamically stable. Chest x-ray shows extensive bilateral airspace disease with some slight improvement. Bronchial wash cultures revealed no growth. Transbronchial biopsies were nondiagnostic. White count 11.8. Hemoglobin 11.0. Platelets 279. Sodium 139. Potassium 4.2. Bicarb 29. BUN 14. Creatinine 0.6. Glucose 200. He remains on DuoNeb inhalations, IV Solu- Medrol. Antibiotics in the form of Zosyn. Continued on Eliquis. He is being nourished with Jevity at 70 mL/h. The patient is seen today February 12, 2025 in follow-up on the regular medical floor. He is awake and alert in no acute distress. Sitting up in bed. Breathing easier today compared to yesterday. Maintaining O2 saturations in the 90s on 5 L/min per nasal cannula. He has been afebrile. Hemodynamically stable. Sputum culture was positive for Lee Ann. Abdominal culture from PEG tube site positive for Lee Ann albicans, Pichia kuiavzevii. White count 12.5. Hemoglobin 11.8. Platelets 303. Sodium 137. Potassium 4.6. Bicarb 34. BUN 19. Creatinine 0.51. Glucose 145. He remains on DuoNeb inhalations, IV Solu- Medrol. Antibiotics in the form of Zosyn. Anticoagulated with Eliquis. Being nourished with Jevity tube feedings at 70 mL/h. Objective - Vital Signs Vital signs: Vital Signs Temp 97.7 F 02/12/25 07:38 Pulse 88 02/12/25 07:57 Resp 20 02/12/25 07:38 BP 151/80 02/12/25 07:38 Pulse Ox 96 02/12/25 00:40 FiO2 Intake & Output 02/11/25 02/12/25 02/12/25 18:59 06:59 18:59 Intake Total 240 358 Output Total 450 1200 Balance -210 -1200 358 Weight 80.5 kg Intake: Oral 240 358 Output: Urine 450 1200 Other: Voiding Method External Catheter External Catheter # Bowel Movements 1 - Exam GENERAL EXAM: Awake, pleasant 59-year-old male, sitting up in bed, on 5 L high flow nasal cannula, in no apparent distress. HEAD: Normocephalic and atraumatic EYES: Normal reaction of pupils, equal size. NOSE: Clear with pink turbinates. THROAT: No erythema or exudates. NECK: No masses, no JVD. CHEST: No chest wall deformity. LUNGS: Equal air entry with bilateral scattered rhonchi. CVS: S1 and S2 normal with no audible murmur, regular rhythm. No extra heart sounds ABDOMEN: PEG tube in place, active bowel sounds, no hepatosplenomegaly, no guarding or rigidity. SPINE: No scoliosis or deformity SKIN: No rashes CENTRAL NERVOUS SYSTEM: No focal deficits, tone is normal in all 4 extremities. EXTREMITIES: There is no peripheral edema, clubbing, or cyanosis. Peripheral pulses are intact. - Labs CBC & Chem 7: 02/12/25 08:27 02/12/25 08:27 Labs: Abnormal Lab Results - Last 24 Hours (Table) 02/12/25 02/12/25 Range/Units 08:27 08:27 WBC 12.59 H (4.50-10.00) 10*3/uL RBC 4.24 L (4.40-5.60) 10*6/uL Hgb 11.8 L (13.0-17.0) g/dL Hct 37.0 L (39.6-50.0) % MCHC 31.9 L (32.0-37.0) g/dL MPV 9.1 L (9.5-12.2) fL Immature Gran # 0.11 H (0.00-0.04) 10*3/uL Neutrophils # 11.49 H (1.80-7.70) 10*3/uL Lymphocytes # 0.55 L (0.90-5.00) 10*3/uL Eosinophils # 0.00 L (0.04-0.35) 10*3/uL Carbon Dioxide 34 H (22-30) mmol/L Creatinine 0.51 L (0.66-1.25) mg/dL Glucose 145 H (74-99) mg/dL ALT 50 H (4-49) U/L Total Protein 5.1 L (6.3-8.2) g/dL Albumin 2.7 L (3.5-5.0) g/dL Microbiology - Last 24 Hours (Table) 02/09/25 11:26 Anaerobic Culture - Preliminary Abdomen 02/09/25 11:26 Gram Stain - Final Abdomen Wound Culture - Final Lee Ann albicans Singh baca Assessment and Plan Assessment: Acute hypoxemic respiratory failure, currently on 6 L/min nasal cannula, chest CT angiogram which did not show any evidence of pulmonary embolism. There is extensive bilateral airspace consolidation, concerning for multilobar pneumonia. CTA of the chest was reviewed and compared to the earlier CAT scan that was done in [facility]. There is obvious progression in the interstitial and airspace opacities upper lobes bilaterally along with some areas of scarring and bronchiectasis. In addition, there is a bulky subcarinal lymph node. Rule out any chronic/persistent infections. Rule out malignancy or progression of esophageal cancer. Rule out immunotherapy related pneumonitis although this is felt to be less likely. Post bronchoscopy on 02/07/2025 with a BAL of the right upper lobe, transbronchial biopsy of the right upper lobe, larios sbronchial needle aspirate of the subcarinal lymph node. Cultures revealed no growth and pathology was nondiagnostic History of metastatic esophageal cancer status post chemoradiation, currently maintained on immunotherapy with Keytruda Remote history of oral cancer with previous reconstructive surgery Chronic dysphagia, with PEG tube and being nourished with Jevity History of pulmonary embolism, anticoagulated on Eliquis Chronic obstructive pulmonary disease Hypertension Former heavy tobacco use Former alcohol abuse Anxiety/depression Plan: The patient was seen and evaluated Labs and medications reviewed Titrate down the FiO2 as tolerated He does have home oxygen in place Continue flutter valve Continue DuoNeb inhalations Continue Zosyn Continue Jevity tube feedings Continue aspiration precautions Continue Eliquis Continue IV Solu-Medrol Increase his activity as tolerated Working with physical therapy Plan is for subacute rehabilitation at discharge This patient was seen independently by the pulmonary nurse practitioner addressing pulmonary issues I have personally seen and examined the patient, performed the documentation and the assessment and plan as written. Number of minutes spent on the visit: 23 Dictation was produced using [employer] dictation software. Please excuse any grammatical, word or spelling errors.
--- NOTE | 2025-02-12 14:45 | P.PN ---
Subjective Progress Note Date: 02/11/25 Principal diagnosis: Reason for follow-up is PEG tube site cellulitis Patient is a 59-year-old male with a past medical history significant for COPD reflux hypertension PE history of esophageal cancer status post PEG tube placement in February 2022 patient presented to the hospital about a week ago for evaluation of increasing shortness of breath has been diagnosed with a pneumonia also noticed to have drainage from his PEG tube site prompted this consultation. On today's evaluation that is 02/11/2025,the patient denies any fever or any chills, patient is breathing comfortably on 5 L current oxygen, the patient denies chest pain shortness of breath and no significant cough, patient pain around the PEG tube site has decreased in intensity no vomiting or diarrhea. Patient white count is 11.81 creatinine 0.6 Objective - Vital Signs Vital signs: Vital Signs Temp 97.5 F L 02/11/25 08:00 Pulse 71 02/11/25 11:56 Resp 16 02/11/25 08:00 BP 151/83 02/11/25 08:00 Pulse Ox 96 02/11/25 08:01 FiO2 Intake & Output 02/10/25 02/11/25 02/11/25 18:59 06:59 18:59 Intake Total 1834 600 240 Output Total 650 850 Balance 1184 -250 240 Weight 79.5 kg Intake: Oral 1284 240 Tube Feeding 550 Other 600 Output: Urine 650 850 Other: Voiding Method External Catheter External Catheter - Exam GENERAL DESCRIPTION: Middle aged male lying in bed in no distress RESPIRATORY SYSTEM: Unlabored breathing , decreased breath sounds at bases HEART: S1 S2 regular rate and rhythm , ABDOMEN: Soft , no tenderness EXTREMITIES: No edema feet - Labs CBC & Chem 7: 02/12/25 08:27 02/12/25 08:27 Labs: Abnormal Lab Results - Last 24 Hours (Table) 02/11/25 02/11/25 Range/Units 05:35 05:35 WBC 11.81 H (4.50-10.00) X 10*3/uL RBC 3.97 L (4.40-5.60) X 10*6/uL Hgb 11.0 L (13.0-17.0) g/dL Hct 34.3 L (39.6-50.0) % Immature Gran # 0.09 H (0.00-0.04) X 10*3/uL Neutrophils # 10.65 H (1.80-7.70) X 10*3/uL Lymphocytes # 0.52 L (0.90-5.00) X 10*3/uL Eosinophils # 0 L (0.04-0.35) X 10*3/uL BUN/Creatinine Ratio 23.33 H (12.00-20.00) Ratio Glucose 200 H (70-110) mg/dL Calcium 8.3 L (8.7-10.3) mg/dL Total Bilirubin <0.2 L (0.3-1.2) mg/dL AST 39 H (14-35) U/L Total Protein 4.7 L (6.2-8.2) g/dL Albumin 2.7 L (3.8-4.9) g/dL Albumin/Globulin Ratio 1.35 L (1.60-3.17) Ratio Assessment and Plan (1) Abdominal wall cellulitis Current Visit: Yes Status: Acute Code(s): L03.311 - CELLULITIS OF ABDOMINAL WALL SNOMED Code(s): 51898282 (2) Bilateral pneumonia Current Visit: Yes Status: Acute Code(s): J18.9 - PNEUMONIA, UNSPECIFIED ORGANISM SNOMED Code(s): 962376556 Plan: 1patient with initially presented hospital with increasing shortness of breath and cough did have evidence of bilateral consolidation status post bronchoscopy and lavage blood culture currently pending initial sputum with Lee Ann albicans 2patient with PEG tube site erythema and drainage more likely related to irritation from the gastric secretions with secondary bacterial cellulitis less likely but not entirely excluded .3-local culture currently growing Lee Ann possible GI gill patient is on SSRI currently indicating the use of Diflucan currently being treated nystatin cream around the PEG tube site. 4-patient is on Zosyn to cover for his pneumonia and monitor clinical course closely Dictation was produced using [employer] dictation software. please excuse any gr ammatical, word or spelling errors. Time with Patient: Less than 30
--- NOTE | 2025-02-12 14:45 | P.PN ---
Subjective Progress Note Date: 02/12/25 Principal diagnosis: Reason for follow-up is PEG tube site cellulitis Patient is a 59-year-old male with a past medical history significant for COPD reflux hypertension PE history of esophageal cancer status post PEG tube placement in February 2022 patient presented to the hospital about a week ago for evaluation of increasing shortness of breath has been diagnosed with a pneumonia also noticed to have drainage from his PEG tube site prompted this consultation. On today's evaluation that is 02/12/2025,the patient remains to be afebrile, patient is on 5 L nasal cannula supplemental oxygen and mentioned breathing comfortably with no chest pain or cough.Patient denies having any nausea or vomiting, no abdominal pain and no diarrhea has been reported. Patient white count is 12.59 creatinine 0.53 Objective - Vital Signs Vital signs: Vital Signs Temp 97.5 F L 02/12/25 13:22 Pulse 70 02/12/25 13:22 Resp 20 02/12/25 13:22 BP 158/83 02/12/25 13:22 Pulse Ox 90 L 02/12/25 13:22 FiO2 Intake & Output 02/11/25 02/12/25 02/12/25 18:59 06:59 18:59 Intake Total 240 1016 Output Total 450 1200 650 Balance -210 -1200 366 Weight 80.5 kg Intake: Oral 240 1016 Output: Urine 450 1200 650 Other: Voiding Method External Catheter External Catheter # Bowel Movements 1 - Exam GENERAL DESCRIPTION: Middle aged male lying in bed in no distress RESPIRATORY SYSTEM: Unlabored breathing , decreased breath sounds at bases HEART: S1 S2 regular rate and rhythm , ABDOMEN: Soft , no tenderness EXTREMITIES: No edema feet - Labs CBC & Chem 7: 02/12/25 08:27 02/12/25 08:27 Labs: Abnormal Lab Results - Last 24 Hours (Table) 02/12/25 02/12/25 Range/Units 08:27 08:27 WBC 12.59 H (4.50-10.00) 10*3/uL RBC 4.24 L (4.40-5.60) 10*6/uL Hgb 11.8 L (13.0-17.0) g/dL Hct 37.0 L (39.6-50.0) % MCHC 31.9 L (32.0-37.0) g/dL MPV 9.1 L (9.5-12.2) fL Immature Gran # 0.11 H (0.00-0.04) 10*3/uL Neutrophils # 11.49 H (1.80-7.70) 10*3/uL Lymphocytes # 0.55 L (0.90-5.00) 10*3/uL Eosinophils # 0.00 L (0.04-0.35) 10*3/uL Carbon Dioxide 34 H (22-30) mmol/L Creatinine 0.51 L (0.66-1.25) mg/dL Glucose 145 H (74-99) mg/dL ALT 50 H (4-49) U/L Total Protein 5.1 L (6.3-8.2) g/dL Albumin 2.7 L (3.5-5.0) g/dL Microbiology - Last 24 Hours (Table) 02/09/25 11:26 Anaerobic Culture - Preliminary Abdomen 02/09/25 11:26 Gram Stain - Final Abdomen Wound Culture - Final Lee Ann albicans Charlettea anavii Assessment and Plan (1) Abdominal wall cellulitis Current Visit: Yes Status: Acute Code(s): L03.311 - CELLULITIS OF ABDOMINAL WALL SNOMED Code(s): 70082930 (2) Bilateral pneumonia Current Visit: Yes Status: Acute Code(s): J18.9 - PNEUMONIA, UNSPECIFIED ORGANISM SNOMED Code(s): 289353028 Plan: 1patient with initially presented hospital with increasing shortness of breath and cough did have evidence of bilateral consolidation status post bronchoscopy and lavage blood culture currently pending initial sputum with Lee Ann albicans 2patient with PEG tube site erythema and drainage more likely related to irritation from the gastric secretions with secondary bacterial cellulitis less likely but not entirely excluded .3-local culture currently growing Lee Ann possible GI gill patient is on SSRI currently indicating the use of Diflucan currently being treated nystatin cream around the PEG tube site. 4-patient white count is slightly elevated more likely steroid related will monitor closely currently on Zosyn to continue Dictation was produced using [employer] software. please excuse any grammatical, word or spelling errors. Time with Patient: Less than 30
[2025-02-12] MEDS: FUROSEMIDE 10 MG/ML 2 ML VIAL IV ONE (15:07)
--- NOTE | 2025-02-12 15:11 | P.PN ---
Subjective Progress Note Date: 02/12/25 HPI: 59-year-old male known to me from his previous hospitalization at [facility] came in with complaints of shortness of breath cough without any significant sputum production. Patient had a recent pulmonary embolism followed by second hospitalization for pneumonia patient was given antibiotics and systemic steroids were discharged home. Patient appears to have had bilateral airspace consolidation and multilobar pneumonia. Patient came back here with complaints of shortness of breath. Patient does not have any fever, does have mild leukocytosis patient had a CT of the chest which showed bronchiectatic changes in the right lung with possibly mild infiltrate with air bronchogram below that. Patient was started on levofloxacin and Zosyn in the ER. Patient had a procalcitonin which is not elevated. Patient had any fever or chills. Patient had a history of esophageal cancer status post chemoradiation therapy patient is still on Keytruda. Patient is mildly hyponatremic at 132. Subjective: 02/05/25: Patient seen at bedside. No significant overnight events. States his breathing is still a little labored but improving. 02/06/2025: Patient seen at bedside. No significant overnight events. Reports his breathing still is slightly difficult, states it is better than before. Patient has no other complaints or concerns this time. 02/07/2025: Patient seen at bedside. No significant overnight events. States his breathing is significantly improved after receiving bronchoscopy with biopsies this morning. Patient has no other complaints concerns at this time. 02/08/2025: Patient seen at bedside no significant overnight events, patient had bronchoscopy yesterday today patient is saying this is the best he has felt since admission. Reports that he rapidly desaturates upon exertion however feels like he has more energy today 02/09/2025: Patient seen at bedside no significant overnight events has decreased to 5 L nasal cannula still not tolerating exertion. No other complaints at this 02/10/2025: Patient seen at bedside, still requires 5 L nasal cannula, desaturating as soon as he exerts himself otherwise improving slowly 02/11/2025: Patient seen at bedside, still requiring 5L nasal cannula, not desaturating as fast, notice himself recovering faster. 02/12/25: Patient seen at bedside no complaints still desaturating on exertion Pertinent positives and negatives discussed above, a complete review of systems was preformed and all the other sytems were negative. Vitals Signs Reveiwed. GENERAL: The patient is alert and oriented x3, not in any acute distress. Well developed, well nourished. HEENT: Pupils are round and equally reacting to light. EOMI. No scleral icterus. No conjunctival pallor. Normocephalic, atraumatic. No pharyngeal erythema. No thyromegaly. CARDIOVASCULAR: S1 and S2 present. No murmurs, rubs, or gallops. PULMONARY: Improved air movement bilaterally, decreased wheezing auscultated compared to yesterday but still present ABDOMEN: Soft, nontender, nondistended, normoactive bowel sounds. No palpable organomegaly. MUSCULOSKELETAL: No joint swelling or deformity. EXTREMITIES: No cyanosis, clubbing, or pedal edema. Upper extremity edema nonpitting NEUROLOGICAL: Gross neurological examination did not reveal any focal deficits. SKIN: No rashes. Imaging: No new imaging. Assessment and plan #Acute hypoxic respiratory failure requiring 4 L of oxygen: Patient has bronchiectasis and possibly radiation induced lung damage rather than pneumonia. Patient has mild airspace consolidation probably from his previous pneumonia. -Status post bronchoscopy with biopsies today, patient breathing better although not requiring 6 L oxygen likely secondary to anesthesia - Down to 5 L nasal cannula titrate down as tolerated Increase activity as tolerated - plan for DC to subacute rehab - resume Eliquis - PT OT consulted - Patient is receiving Zosyn (day 6) - Metastatic esophageal cancer status post chemoradiation therapy presently on immunotherapy with Keytruda - Mild leukocytosis can be reactive or can be secondary to pneumonia or bronchiectasis - COPD without any significant acute exacerbation - Hypertension: cont. to hold antihypertensive medication as BP has been wnl limits since admission - Anxiety/depression - cleared by speech therapy for PO intake with regular diet with thin liquids while seated in upright position -Had a history of COPD and alcohol abuse which are not issues now -Recent pulmonary embolism for which patient is on Eliquis which was resumed - Add IV Solu-Medrol 40 mg Q6 postop per pulmonology #Upper extremity edema One-time 20 mg IV Lasix E none N tube feedings DVT ppx: Eliquis GI ppx: None Code Status: Full code Anticipated discharge place: Subacute Rehab Anticipated discharge time: Pending clinical course Objective - Vital Signs Vital signs: Vital Signs Temp 97.5 F L 02/12/25 13:22 Pulse 70 02/12/25 13:22 Resp 20 02/12/25 13:22 BP 158/83 02/12/25 13:22 Pulse Ox 90 L 02/12/25 13:22 FiO2 Intake & Output 02/11/25 02/12/25 02/12/25 18:59 06:59 18:59 Intake Total 240 1016 Output Total 450 1200 650 Balance -210 -1200 366 Weight 80.5 kg Intake: Oral 240 1016 Output: Urine 450 1200 650 Other: Voiding Method External Catheter External Catheter # Bowel Movements 1 - Labs CBC & Chem 7: 02/16/25 04:29 02/16/25 04:29 Labs: Abnormal Lab Results - Last 24 Hours (Table) 02/12/25 02/12/25 Range/Units 08:27 08:27 WBC 12.59 H (4.50-10.00) 10*3/uL RBC 4.24 L (4.40-5.60) 10*6/uL Hgb 11.8 L (13.0-17.0) g/dL Hct 37.0 L (39.6-50.0) % MCHC 31.9 L (32.0-37.0) g/dL MPV 9.1 L (9.5-12.2) fL Immature Gran # 0.11 H (0.00-0.04) 10*3/uL Neutrophils # 11.49 H (1.80-7.70) 10*3/uL Lymphocytes # 0.55 L (0.90-5.00) 10*3/uL Eosinophils # 0.00 L (0.04-0.35) 10*3/uL Carbon Dioxide 34 H (22-30) mmol/L Creatinine 0.51 L (0.66-1.25) mg/dL Glucose 145 H (74-99) mg/dL ALT 50 H (4-49) U/L Total Protein 5.1 L (6.3-8.2) g/dL Albumin 2.7 L (3.5-5.0) g/dL Microbiology - Last 24 Hours (Table) 02/09/25 11:26 Anaerobic Culture - Preliminary Abdomen 02/09/25 11:26 Gram Stain - Final Abdomen Wound Culture - Final Lee Ann albicans Singh baca Assessment and Plan Assessment: Attestation Attestation/ Sonar Watchstander Note: Attestation to Progress Note, Participation (I saw and evaluated the patient with the Resident, and I reviewed and discussed the patient with the Resident and agree with the Resident's findings and plans as documented above., management reviewed and discussed), I agree with findings & p russ, Provider Signature (LUIS BERMAN, JOESPH Patino Time with Patient: Greater than 30
[2025-02-13] MEDS: FUROSEMIDE 10 MG/ML 4 ML VIAL IV STA (09:56)
--- NOTE | 2025-02-13 12:59 | P.PN ---
Subjective Progress Note Date: 02/13/25 Patient is a 59-year-old male with past medical history significant for COPD, former heavy tobacco use, former alcohol abuse, remote oral cancer with previous reconstructive surgery. More recently, diagnosed with metastatic gastroesophageal cancer approximately 3 years ago. Status post chemoradiation, currently maintained on Keytruda. His oncologist is Dr. Rios. He has chronic dysphagia and has a PEG tube. Still has oral intake. Patient brought in by EMS early this morning. He had significant shortness of breath. Reportedly, released from [facility] approximately 1-1/2 weeks ago with bilateral pneumonia. He finished his antibiotics outpatient. Also, diagnosed with pulmonary embolism and started on Eliquis. Workup in the emergency department including a chest CT angiogram which did not show any evidence of pulmonary embolism. There is extensive bilateral airspace consolidation concerning for multilobar pneumonia. Chronic underlying appearance with bronchiectasis concerning for underlying lung scarring and probable post- treatment changes. No prior imaging available for comparison. CBC: WBC count 11.18, hemoglobin 14.2, platelets 224. CMP: Sodium 132, potassium 4.1, chloride 96, serum bicarb 26, BUN 21, creatinine 0.54, glucose 112. Lactic 2.7 down to 1.8. LFTs unremarkable. Troponin less than 0.012. NT proBNP 303. Patient currently being evaluated emergency department. Nontoxic appearance. States that shortness of breath developed in the last 24 hours. No significant coughing. No significant sputum production or hemoptysis. No fevers or chills. He has chronic issues with dysphagia. Has PEG tube, but still has oral intake. He has been started empirically on Levaquin and Zosyn in the ED. Nonlocalized chest pain. No palpitations, syncopal events, lower extremity edema. Normal saline infusing at 100 mL/h. Current vital signs: Temperature 99.4 F, heart rate 92 bpm, blood pressure 136/89 mmHg, nontachypneic, SpO2 recorded at 97% on 4 L/min nasal cannula. 02/05/2025, the patient is clinically unchanged. We reviewed the CAT scan of the chest and compared to the earlier CAT scans that was done at [facility]. Discussed the case also with his oncologist and the patient will need a bronchoscopy and transbronchial biopsies and transbronchial needle aspirate of subcarinal lymph node. The patient is afebrile. White cell count 11.7. Hemoglobin 9.4. Electrolytes all within normal limits. Procalcitonin level is 0.15. Remains on broad-spectrum antibiotics to IV Zosyn. Remains on IV fluids. Coagulations currently on hold in preparation for bronchoscopy to be done in a.m. He remains on 4 L of oxygen by nasal cannula with a pulse ox of 98%. 02/06/2025, clinically unchanged The patient was taken off anticoagulation. Bronchoscopy is to be done tomorrow morning. Meanwhile, he remains on IV Zosyn. Oxygenation remains unchanged and the patient remains on O2 at 3 L with a pulse ox of 93%. Afebrile. Hemodynamically stable. White cell count at 9.1 with a hemoglobin 11.1 and a platelet count of 180. BUN is 7 with a creatinine of 0.6. Sodium levels at 137. Blood culture has been negative. On 02/07/2025, the patient is being seen for a follow-up. Overall condition is essentially unchanged. He remains on oxygen and currently is on 60s of oxygen nasal cannula with a pulse ox of 97%. Bronchoscopy was performed today. I performed transbronchial biopsy of the right upper lobe. In addition, I perf ormed endobronchial ultrasound and transbronchial needle aspirate of subcarinal lymph node endobronchial lavage of the right upper lobe. Post bronchoscopy chest x-ray showed similar multifocal airspace disease. No evidence of any complication or pneumothorax postprocedure. Noted, the patient anticoagulation can be resumed following the procedure. Patient otherwise doing well. No new complaints. Remains on IV Zosyn. Will go ahead and add IV Solu-Medrol in addition. The white cell count is at 9.1 with a hemoglobin 11.1 and a platelet count of 180. Legionella urine antigen was negative. Electrolytes all within normal limits. Blood cultures been negative. The procalcitonin level is at 0.15. On today's evaluation of 02/08/2025, the patient is being seen for a follow-up. Resting comfortably in bed. Continues to have a cough. Bronchoscopy was completed yesterday without any complications. Bronchoalveolar lavage of the right upper lobe was done. In addition to that, the patient had transbronchial biopsy of the right upper lobe and endobronchial ultrasound and biopsy of the s ubcarinal lymph node. Results of the BAL are still pending. The patient is currently on IV Zosyn. The patient is also on IV Solu-Medrol 40 mg every 6 hours. Labs from today shows a white cell count of 7.3 with a hemoglobin of 10.8. BUN is 9 with a creatinine of 0.4 and a sodium level at 141. Will be following up on the patient's biopsy results. He remains on 40 of oxygen by nasal cannula. Anticoagulation was resumed. The patient is also receiving enteral feeding for nutritional support. The patient is seen today February 09, 2025 in follow-up on the regular medical floor. He is currently sitting up in bed. Awake and alert in no acute distress. Maintaining O2 saturations in the 90s on 6 L/min per nasal cannula. He has a productive cough of clear phlegm. He is dyspneic with conversation. Dyspneic with minimal exertion. He remains on Zosyn. He has been nourished with Jevity 1.5 at 70 mL/h. Bronchoalveolar lavage cultures revealed no growth. Biopsy is pending. Sputum culture revealed Lee Ann. Blood culture revealed no growth. White count 10.7. Hemoglobin 10.1. Platelets 245. Sodium 143. Potassium 4.1. Bicarb 26. BUN 12. Creatinine 0.6. Glucose 195. He remains on bronchodilators. Remains on Solu-Medrol. Morphine for pain control. Normal saline at 100 mL/h. Plan is to resume his Eliquis today. The patient is seen today February 10, 2025 in follow-up on the regular medical floor. He is awake and alert in no acute distress. Sitting up in bed having breakfast. Tolerating soft foods. Continues to be nourished with Jevity at 70 mL/h. He states he is breathing easier today compared to yesterday. He appears more comfortable. Less dyspnea with conversation. Less dyspnea with exertion. Still requiring 5 L high flow nasal cannula to maintain O2 saturation in the low 90s. He has been afebrile. Hemodynamically stable. Bronchial wash cultures revealed no growth. Blood culture revealed no growth. Sputum culture with Lee Ann. Abdominal wound culture with Lee Ann albicans. No new labs today. He remains on albuterol as needed. Continued on Solu-Medrol. Continued on Zosyn. Anticoagulated with Eliquis. Continued on his anxiety/depression medications. The patient is seen today February 11, 2025 in follow-up on the regular medical floor. He is currently sitting up in bed. Awake and alert in no acute distress. Feeling better today compared to yesterday. Not quite back to his baseline. Still with some dyspnea on minimal exertion. Currently maintaining good O2 saturations in the mid 90s on 5 L high flow nasal cannula. He is afebri le. Hemodynamically stable. Chest x-ray shows extensive bilateral airspace disease with some slight improvement. Bronchial wash cultures revealed no growth. Transbronchial biopsies were nondiagnostic. White count 11.8. Hemoglobin 11.0. Platelets 279. Sodium 139. Potassium 4.2. Bicarb 29. BUN 14. Creatinine 0.6. Glucose 200. He remains on DuoNeb inhalations, IV Solu- Medrol. Antibiotics in the form of Zosyn. Continued on Eliquis. He is being nourished with Jevity at 70 mL/h. The patient is seen today February 12, 2025 in follow-up on the regular medical floor. He is awake and alert in no acute distress. Sitting up in bed. Breathing easier today compared to yesterday. Maintaining O2 saturations in the 90s on 5 L/min per nasal cannula. He has been afebrile. Hemodynamically stable. Sputum culture was positive for Lee Ann. Abdominal culture from PEG tube site positive for Lee Ann albicans, Pichia kuiavzevii. White count 12.5. Hemoglobin 11.8. Platelets 303. Sodium 137. Potassium 4.6. Bicarb 34. BUN 19. Creatinine 0.51. Glucose 145. He remains on DuoNeb inhalations, IV Solu- Medrol. Antibiotics in the form of Zosyn. Anticoagulated with Eliquis. Being nourished with Jevity tube feedings at 70 mL/h. The patient is seen today February 13, 2025 for follow-up on the regular medical floor. He is awake and alert in no acute distress. Sitting up having edgardo kfast. Denies any worsening shortness of breath, cough or congestion. Less dyspnea on exertion. Maintaining good O2 saturations in the 90s on 4 L/min per nasal cannula. White count 12.5. Hemoglobin 11.8. Platelets 303. Sodium 137. Potassium 4.6. Bicarb 34. BUN 19. Creatinine 0.51. Glucose 145. He remains on DuoNeb inhalations, IV Solu-Medrol. Antibiotics in the form of Zosyn. Anticoagulated with Eliquis. Abdominal culture from PEG tube site positive for Lee Ann albicans, Pichia kudriavzevii. Sputum culture positive for Lee Ann. Infectious disease is following. He remains on Jevity at 70 mL/h for nutritional support. Objective - Vital Signs Vital signs: Vital Signs Temp 97.8 F 02/13/25 07:52 Pulse 83 02/13/25 11:50 Resp 16 02/13/25 07:52 BP 147/81 02/13/25 07:52 Pulse Ox 97 02/13/25 07:52 FiO2 Intake & Output 02/12/25 02/13/25 02/13/25 18:59 06:59 18:59 Intake Total 1496 Output Total 2500 750 950 Balance -1004 -750 -950 Weight 79 kg Intake: Oral 1496 Output: Urine 2500 750 950 Other: Voiding Method External Catheter External Catheter External Catheter - Exam GENERAL EXAM: Awake, pleasant 59-year-old male, on 4 L high flow nasal cannula, in no apparent distress. HEAD: Normocephalic and atraumatic EYES: Normal reaction of pupils, equal size. NOSE: Clear with pink turbinates. THROAT: No erythema or exudates. NECK: No masses, no JVD. CHEST: No chest wall deformity. LUNGS: Equal air entry with bilateral scattered rhonchi. CVS: S1 and S2 normal with no audible murmur, regular rhythm. No extra heart sounds ABDOMEN: PEG tube in place, active bowel sounds, no hepatosplenomegaly, no guarding or rigidity. SPINE: No scoliosis or deformity SKIN: No rashes CENTRAL NERVOUS SYSTEM: No focal deficits, tone is normal in all 4 extremities. EXTREMITIES: There is no peripheral edema, clubbing, or cyanosis. Peripheral pulses are intact. - Labs CBC & Chem 7: 02/12/25 08:27 02/12/25 08:27 Assessment and Plan Assessment: Acute hypoxemic respiratory failure, currently on 6 L/min nasal cannula, chest CT angiogram which did not show any evidence of pulmonary embolism. There is extensive bilateral airspace consolidation, concerning for multilobar pneumonia. CTA of the chest was reviewed and compared to the earlier CAT scan that was done in [facility]. There is obvious progression in the interstitial and airspace opacities upper lobes bilaterally along with some areas of scarring and bronchiectasis. In addition, there is a bulky subcarinal lymph node. Rule out any chronic/persistent infections. Rule out malignancy or progression of esophageal cancer. Rule out immunotherapy related pneumonitis although this is felt to be less likely. Post bronchoscopy on 02/07/2025 with a BAL of the right upper lobe, transbronchial biopsy of the right upper lobe, transbronchial needle aspirate of the subcarinal lymph node. Cultures revealed no growth and pathology was nondiagnostic History of metastatic esophageal cancer status post chemoradiation, currently maintained on immunotherapy with Keytruda Remote history of oral cancer with previous reconstructive surgery Chronic dysphagia, with PEG tube and being nourished with Jevity History of pulmonary embolism, anticoagulated on Eliquis Chronic obstructive pulmonary disease Hypertension Former heavy tobacco use Former alcohol abuse Anxiety/depression Plan: The patient was seen and evaluated Labs and medications reviewed Titrate down the FiO2 as tolerated Continue flutter valve Continue DuoNeb inhalations Continue Zosyn per ID service Continue Jevity tube feedings Continue aspiration precautions Continue Eliquis Discontinue Solu-Medrol Initiate a prednisone taper Increase his activity as tolerated Working with physical therapy Cleared for discharge from the pulmonary standpoint Plan is for subacute rehabilitation at [facility] This patient was seen independently by the pulmonary nurse practitioner valentina saucedo pulmonary issues I have personally seen and examined the patient, performed the documentation and the assessment and plan as written. Number of minutes spent on the visit: 24 Dictation was produced using [employer] dictation software. Please excuse any grammatical, word or spelling errors.
--- NOTE | 2025-02-13 14:38 | P.PN ---
Subjective Progress Note Date: 02/13/25 HPI: 59-year-old male known to me from his previous hospitalization at [facility] came in with complaints of shortness of breath cough without any significant sputum production. Patient had a recent pulmonary embolism followed by second hospitalization for pneumonia patient was given antibiotics and systemic steroids were discharged home. Patient appears to have had bilateral airspace consolidation and multilobar pneumonia. Patient came back here with complaints of shortness of breath. Patient does not have any fever, does have mild leukocytosis patient had a CT of the chest which showed bronchiectatic changes in the right lung with possibly mild infiltrate with air bronchogram below that. Patient was started on levofloxacin and Zosyn in the ER. Patient had a procalcitonin which is not elevated. Patient had any fever or chills. Patient had a history of esophageal cancer status post chemoradiation therapy patient is still on Keytruda. Patient is mildly hyponatremic at 132. Subjective: 02/05/25: Patient seen at bedside. No significant overnight events. States his breathing is still a little labored but improving. 02/06/2025: Patient seen at bedside. No significant overnight events. Reports his breathing still is slightly difficult, states it is better than before. Patient has no other complaints or concerns this time. 02/07/2025: Patient seen at bedside. No significant overnight events. States his breathing is significantly improved after receiving bronchoscopy with biopsies this morning. Patient has no other complaints concerns at this time. 02/08/2025: Patient seen at bedside no significant overnight events, patient had bronchoscopy yesterday today patient is saying this is the best he has felt since admission. Reports that he rapidly desaturates upon exertion however feels like he has more energy today 02/09/2025: Patient seen at bedside no significant overnight events has decreased to 5 L nasal cannula still not tolerating exertion. No other complaints at this 02/10/2025: Patient seen at bedside, still requires 5 L nasal cannula, desaturating as soon as he exerts himself otherwise improving slowly 02/11/2025: Patient seen at bedside, still requiring 5L nasal cannula, not desaturating as fast, notice himself recovering faster. 02/12/25: Patient seen at bedside no complaints still desaturating on exertion 02/13/2025: Patient seen at bedside, still not tolerating exertion, continuing to ambulate as tolerated Pertinent positives and negatives discussed above, a complete review of systems was preformed and all the other sytems were negative. Vitals Signs Reveiwed. GENERAL: The patient is alert and oriented x3, not in any acute distress. Well developed, well nourished. HEENT: Pupils are round and equally reacting to light. EOMI. No scleral icterus. No conjunctival pallor. Normocephalic, atraumatic. No pharyngeal erythema. No thyromegaly. CARDIOVASCULAR: S1 and S2 present. No murmurs, rubs, or gallops. PULMONARY: Improved air movement bilaterally, decreased wheezing auscultated compared to yesterday but still present ABDOMEN: Soft, nontender, nondistended, normoactive bowel sounds. No palpable organomegaly. MUSCULOSKELETAL: No joint swelling or deformity. EXTREMITIES: No cyanosis, clubbing, or pedal edema. Upper extremity edema nonpitting NEUROLOGICAL: Gross neurological examination did not reveal any focal deficits. SKIN: No rashes. Imaging: No new imaging. Assessment and plan #Acute hypoxic respiratory failure requiring 4 L of oxygen: Patient has bronch iectasis and possibly radiation induced lung damage rather than pneumonia. Patient has mild airspace consolidation probably from his previous pneumonia. -Status post bronchoscopy with biopsies today, patient breathing better although not requiring 6 L oxygen likely secondary to anesthesia - Down to 5 L nasal cannula titrate down as tolerated Increase activity as tolerated - plan for DC to subacute rehab - resume Eliquis - PT OT consulted - Patient is receiving Zosyn (day 6) - Metastatic esophageal cancer status post chemoradiation therapy presently on immunotherapy with Keytruda - Mild leukocytosis can be reactive or can be secondary to pneumonia or bronchiectasis - COPD without any significant acute exacerbation - Hypertension: cont. to hold antihypertensive medication as BP has been wnl limits since admission - Anxiety/depression - cleared by speech therapy for PO intake with regular diet with thin liquids while seated in upright position -Had a history of COPD and alcohol abuse which are not issues now -Recent pulmonary embolism for which patient is on Eliquis which was resumed - Add IV Solu-Medrol 40 mg Q6 postop per pulmonology #Upper extremity edema One-time 20 mg IV Lasix E none N tube feedings DVT ppx: Eliquis GI ppx: None Code Status: Full code Anticipated discharge place: Subacute Rehab Anticipated discharge time: Pending clinical course Objective - Vital Signs Vital signs: Vital Signs Temp 97.8 F 02/13/25 07:52 Pulse 57 L 02/13/25 07:52 Resp 16 02/13/25 07:52 BP 147/81 02/13/25 07:52 Pulse Ox 97 02/13/25 07:52 FiO2 Intake & Output 02/12/25 02/13/25 02/13/25 18:59 06:59 18:59 Intake Total 1496 Output Total 2500 750 Balance -1004 -750 Weight 79 kg Intake: Oral 1496 Output: Urine 2500 750 Other: Voiding Method External Catheter External Catheter - Labs CBC & Chem 7: 02/16/25 04:29 02/16/25 04:29 Labs: Abnormal Lab Results - Last 24 Hours (Table) 02/12/25 02/12/25 Range/Units 08:27 08:27 WBC 12.59 H (4.50-10.00) 10*3/uL RBC 4.24 L (4.40-5.60) 10*6/uL Hgb 11.8 L (13.0-17.0) g/dL Hct 37.0 L (39.6-50.0) % MCHC 31.9 L (32.0-37.0) g/dL MPV 9.1 L (9.5-12.2) fL Immature Gran # 0.11 H (0.00-0.04) 10*3/uL Neutrophils # 11.49 H (1.80-7.70) 10*3/uL Lymphocytes # 0.55 L (0.90-5.00) 10*3/uL Eosinophils # 0.00 L (0.04-0.35) 10*3/uL Carbon Dioxide 34 H (22-30) mmol/L Creatinine 0.51 L (0.66-1.25) mg/dL Glucose 145 H (74-99) mg/dL ALT 50 H (4-49) U/L Total Protein 5.1 L (6.3-8.2) g/dL Albumin 2.7 L (3.5-5.0) g/dL Assessment and Plan Assessment: Attestation Attestation/ Event Sales Representative Note: Attestation to Progress Note, Participation (I saw and evaluated the patient with the Resident, and I reviewed and discussed the patient with the Resident and agree with the Resident's findings and plans as documented above., management reviewed and discussed), I agree with findings & plan, Provider Signature (LUIS BERMAN, JOESPH Carson. Time with Patient: Greater than 30
--- NOTE | 2025-02-13 15:53 | P.PN ---
Subjective Progress Note Date: 02/13/25 Principal diagnosis: Reason for follow-up is PEG tube site cellulitis Patient is a 59-year-old male with a past medical history significant for COPD reflux hypertension PE history of esophageal cancer status post PEG tube placement in February 2022 patient presented to the hospital about a week ago for evaluation of increasing shortness of breath has been diagnosed with a pneumonia also noticed to have drainage from his PEG tube site prompted this consultation. On today's evaluation that is 02/13/2025, the patient continues to be afebrile, the patient is on 4 L goal oxygen and breathing comfortably, the Pt denies having any chest pain or any worsening cough, the patient pain around the PEG tube site slightly decreased and having some drainage no vomiting or diarrhea. Patient did not have any lab draw today. Objective - Vital Signs Vital signs: Vital Signs Temp 98.1 F 02/13/25 13:55 Pulse 86 02/13/25 15:44 Resp 16 02/13/25 13:55 BP 138/84 02/13/25 13:55 Pulse Ox 96 02/13/25 13:55 FiO2 Intake & Output 02/12/25 02/13/25 02/13/25 18:59 06:59 18:59 Intake Total 1496 Output Total 2500 750 1400 Balance -1004 -750 -1400 Weight 79 kg Intake: Oral 1496 Output: Urine 2500 750 1400 Other: Voiding Method External Catheter External Catheter External Catheter - Exam GENERAL DESCRIPTION: Middle aged male lying in bed in no distress RESPIRATORY SYSTEM: Unlabored breathing , decreased breath sounds at bases HEART: S1 S2 regular rate and rhythm , ABDOMEN: Soft , no tenderness EXTREMITIES: No edema feet - Labs CBC & Chem 7: 02/12/25 08:27 02/12/25 08:27 Labs: Microbiology - Last 24 Hours (Table) 02/09/25 11:26 Anaerobic Culture - Final Abdomen Assessment and Plan (1) Abdominal wall cellulitis Current Visit: Yes Status: Acute Code(s): L03.311 - CELLULITIS OF ABDOMINAL WALL SNOMED Code(s): 52737671 (2) Bilateral pneumonia Current Visit: Yes Status: Acute Code(s): J18.9 - PNEUMONIA, UNSPECIFIED ORGANISM SNOMED Code(s): 700338332 Plan: 1patient with initially presented hospital with increasing shortness of breath and cough did have evidence of bilateral consolidation status post bronchoscopy and lavage blood culture currently pending initial sputum with Lee Ann albicans 2patient with PEG tube site erythema and drainage more likely related to irritation from the gastric secretions with secondary bacterial cellulitis less likely but not entirely excluded .3-local culture currently growing Lee Ann albicans as well as Lee Ann krui possible GI gill patient is on SSRI contraindicating the use of Di flucan/voriconazole currently being treated nystatin cream around the PEG tube site. 4-patient white count is slightly elevated more likely steroid related no CBC was done today will monitor closely currently on Zosyn currently on day 910 Dictation was produced using [employer] dictation software. please excuse any grammatical, word or spelling errors. Time with Patient: Less than 30
[2025-02-14 10:04] LABS: Basophils # (A) 0.02 X 10*3/uL (0.00-0.10); Basophils % (A) 0.2 %; Eosinophils # (A) 0 X 10*3/uL (0.04-0.35); Eosinophils % (A) 0 %; HCT 34.8 % (39.6-50.0); HGB 11.0 g/dL (13.0-17.0); Immature Grans, Automated 1.30 %; Lymphocytes # (A) 0.40 X 10*3/uL (0.90-5.00); Lymphocytes % (A) 3.5 %; MCH 27.8 pg (27.0-32.0); MCHC 31.6 g/dL (32.0-37.0); MCV 88.1 FL (80.0-97.0); Monocytes # (A) 0.53 X 10*3/uL (0.20-1.00); Monocytes % (A) 4.6 %; NRBC Per 100 WBC 0 X 10*3/uL (0.00-0.01); Neutrophils # (A) 10.47 X 10*3/uL (1.80-7.70); Neutrophils % (A) 90.4 %; Platelet Count 299 X 10*3/uL (140-440); RBC 3.95 X 10*6/uL (4.40-5.60); RDW 13.3 % (11.5-14.5); WBC 11.57 X 10*3/uL (4.50-10.00)
[2025-02-14 10:08] LABS: ALT 57 U/L (10-49); AST 33 U/L (14-35); Albumin 3.0 g/dL (3.8-4.9); Albumin/Globulin Ratio 1.67 Ratio (1.60-3.17); Alkaline Phosphatase 81 U/L (41-126); Anion Gap 9.90 mmol/L (4.00-12.00); BUN/Creat Ratio 38.83 Ratio (12.00-20.00); Blood Urea Nitrogen 23.3 mg/dL (9.0-27.0); Calcium 8.5 mg/dL (8.7-10.3); Carbon Dioxide 32.1 mmol/L (21.6-31.8); Chloride 105 mmol/L (96-109); Globulin 1.8 g/dL (1.6-3.3); Glucose 145 mg/dL (70-110); Potassium 4.3 mmol/L (3.5-5.5); Sodium 147 mmol/L (135-145); Total Protein 4.8 g/dL (6.2-8.2)
--- NOTE | 2025-02-14 10:53 | P.PN ---
Subjective Progress Note Date: 02/14/25 Patient is a 59-year-old male with past medical history significant for COPD, former heavy tobacco use, former alcohol abuse, remote oral cancer with previous reconstructive surgery. More recently, diagnosed with metastatic gastroesophageal cancer approximately 3 years ago. Status post chemoradiation, currently maintained on Keytruda. His oncologist is Dr. Rios. He has chronic dysphagia and has a PEG tube. Still has oral intake. Patient brought in by EMS early this morning. He had significant shortness of breath. Reportedly, released from [facility] approximately 1-1/2 weeks ago with bilateral pneumonia. He finished his antibiotics outpatient. Also, diagnosed with pulmonary embolism and started on Eliquis. Workup in the emergency department including a chest CT angiogram which did not show any evidence of pulmonary embolism. There is extensive bilateral airspace consolidation concerning for multilobar pneumonia. Chronic underlying appearance with bronchiectasis concerning for underlying lung scarring and probable post- treatment changes. No prior imaging available for comparison. CBC: WBC count 11.18, hemoglobin 14.2, platelets 224. CMP: Sodium 132, potassium 4.1, chloride 96, serum bicarb 26, BUN 21, creatinine 0.54, glucose 112. Lactic 2.7 down to 1.8. LFTs unremarkable. Troponin less than 0.012. NT proBNP 303. Patient currently being evaluated emergency department. Nontoxic appearance. States that shortness of breath developed in the last 24 hours. No significant coughing. No significant sputum production or hemoptysis. No fevers or chills. He has chronic issues with dysphagia. Has PEG tube, but still has oral intake. He has been started empirically on Levaquin and Zosyn in the ED. Nonlocalized chest pain. No palpitations, syncopal events, lower extremity edema. Normal saline infusing at 100 mL/h. Current vital signs: Temperature 99.4 F, heart rate 92 bpm, blood pressure 136/89 mmHg, nontachypneic, SpO2 recorded at 97% on 4 L/min nasal cannula. 02/05/2025, the patient is clinically unchanged. We reviewed the CAT scan of the chest and compared to the earlier CAT scans that was done at [facility]. Discussed the case also with his oncologist and the patient will need a bronchoscopy and transbronchial biopsies and transbronchial needle aspirate of subcarinal lymph node. The patient is afebrile. White cell count 11.7. Hemoglobin 9.4. Electrolytes all within normal limits. Procalcitonin level is 0.15. Remains on broad-spectrum antibiotics to IV Zosyn. Remains on IV fluids. Coagulations currently on hold in preparation for bronchoscopy to be done in a.m. He remains on 4 L of oxygen by nasal cannula with a pulse ox of 98%. 02/06/2025, clinically unchanged The patient was taken off anticoagulation. Bronchoscopy is to be done tomorrow morning. Meanwhile, he remains on IV Zosyn. Oxygenation remains unchanged and the patient remains on O2 at 3 L with a pulse ox of 93%. Afebrile. Hemodynamically stable. White cell count at 9.1 with a hemoglobin 11.1 and a platelet count of 180. BUN is 7 with a creatinine of 0.6. Sodium levels at 137. Blood culture has been negative. On 02/07/2025, the patient is being seen for a follow-up. Overall condition is essentially unchanged. He remains on oxygen and currently is on 60s of oxygen nasal cannula with a pulse ox of 97%. Bronchoscopy was performed today. I performed transbronchial biopsy of the right upper lobe. In addition, I perf ormed endobronchial ultrasound and transbronchial needle aspirate of subcarinal lymph node endobronchial lavage of the right upper lobe. Post bronchoscopy chest x-ray showed similar multifocal airspace disease. No evidence of any complication or pneumothorax postprocedure. Noted, the patient anticoagulation can be resumed following the procedure. Patient otherwise doing well. No new complaints. Remains on IV Zosyn. Will go ahead and add IV Solu-Medrol in addition. The white cell count is at 9.1 with a hemoglobin 11.1 and a platelet count of 180. Legionella urine antigen was negative. Electrolytes all within normal limits. Blood cultures been negative. The procalcitonin level is at 0.15. On today's evaluation of 02/08/2025, the patient is being seen for a follow-up. Resting comfortably in bed. Continues to have a cough. Bronchoscopy was completed yesterday without any complications. Bronchoalveolar lavage of the right upper lobe was done. In addition to that, the patient had transbronchial biopsy of the right upper lobe and endobronchial ultrasound and biopsy of the s ubcarinal lymph node. Results of the BAL are still pending. The patient is currently on IV Zosyn. The patient is also on IV Solu-Medrol 40 mg every 6 hours. Labs from today shows a white cell count of 7.3 with a hemoglobin of 10.8. BUN is 9 with a creatinine of 0.4 and a sodium level at 141. Will be following up on the patient's biopsy results. He remains on 40 of oxygen by nasal cannula. Anticoagulation was resumed. The patient is also receiving enteral feeding for nutritional support. The patient is seen today February 09, 2025 in follow-up on the regular medical floor. He is currently sitting up in bed. Awake and alert in no acute distress. Maintaining O2 saturations in the 90s on 6 L/min per nasal cannula. He has a productive cough of clear phlegm. He is dyspneic with conversation. Dyspneic with minimal exertion. He remains on Zosyn. He has been nourished with Jevity 1.5 at 70 mL/h. Bronchoalveolar lavage cultures revealed no growth. Biopsy is pending. Sputum culture revealed Lee Ann. Blood culture revealed no growth. White count 10.7. Hemoglobin 10.1. Platelets 245. Sodium 143. Potassium 4.1. Bicarb 26. BUN 12. Creatinine 0.6. Glucose 195. He remains on bronchodilators. Remains on Solu-Medrol. Morphine for pain control. Normal saline at 100 mL/h. Plan is to resume his Eliquis today. The patient is seen today February 10, 2025 in follow-up on the regular medical floor. He is awake and alert in no acute distress. Sitting up in bed having breakfast. Tolerating soft foods. Continues to be nourished with Jevity at 70 mL/h. He states he is breathing easier today compared to yesterday. He appears more comfortable. Less dyspnea with conversation. Less dyspnea with exertion. Still requiring 5 L high flow nasal cannula to maintain O2 saturation in the low 90s. He has been afebrile. Hemodynamically stable. Bronchial wash cultures revealed no growth. Blood culture revealed no growth. Sputum culture with Lee Ann. Abdominal wound culture with Lee Ann albicans. No new labs today. He remains on albuterol as needed. Continued on Solu-Medrol. Continued on Zosyn. Anticoagulated with Eliquis. Continued on his anxiety/depression medications. The patient is seen today February 11, 2025 in follow-up on the regular medical floor. He is currently sitting up in bed. Awake and alert in no acute distress. Feeling better today compared to yesterday. Not quite back to his baseline. Still with some dyspnea on minimal exertion. Currently maintaining good O2 saturations in the mid 90s on 5 L high flow nasal cannula. He is afebri le. Hemodynamically stable. Chest x-ray shows extensive bilateral airspace disease with some slight improvement. Bronchial wash cultures revealed no growth. Transbronchial biopsies were nondiagnostic. White count 11.8. Hemoglobin 11.0. Platelets 279. Sodium 139. Potassium 4.2. Bicarb 29. BUN 14. Creatinine 0.6. Glucose 200. He remains on DuoNeb inhalations, IV Solu- Medrol. Antibiotics in the form of Zosyn. Continued on Eliquis. He is being nourished with Jevity at 70 mL/h. The patient is seen today February 12, 2025 in follow-up on the regular medical floor. He is awake and alert in no acute distress. Sitting up in bed. Breathing easier today compared to yesterday. Maintaining O2 saturations in the 90s on 5 L/min per nasal cannula. He has been afebrile. Hemodynamically stable. Sputum culture was positive for Lee Ann. Abdominal culture from PEG tube site positive for Lee Ann albicans, Pichia kuiavzevii. White count 12.5. Hemoglobin 11.8. Platelets 303. Sodium 137. Potassium 4.6. Bicarb 34. BUN 19. Creatinine 0.51. Glucose 145. He remains on DuoNeb inhalations, IV Solu- Medrol. Antibiotics in the form of Zosyn. Anticoagulated with Eliquis. Being nourished with Jevity tube feedings at 70 mL/h. The patient is seen today February 13, 2025 for follow-up on the regular medical floor. He is awake and alert in no acute distress. Sitting up having edgardo kfast. Denies any worsening shortness of breath, cough or congestion. Less dyspnea on exertion. Maintaining good O2 saturations in the 90s on 4 L/min per nasal cannula. White count 12.5. Hemoglobin 11.8. Platelets 303. Sodium 137. Potassium 4.6. Bicarb 34. BUN 19. Creatinine 0.51. Glucose 145. He remains on DuoNeb inhalations, IV Solu-Medrol. Antibiotics in the form of Zosyn. Anticoagulated with Eliquis. Abdominal culture from PEG tube site positive for Lee Ann albicans, Pichia kudriavzevii. Sputum culture positive for Lee Ann. Infectious disease is following. He remains on Jevity at 70 mL/h for nutritional support. The patient is seen today February 14, 2025 in follow-up on the regular medical floor. He is currently sitting up in bed. Awake and alert in no acute distress. Maintaining good O2 saturations in the 90s on 4 L/min per nasal cannula. He has been afebrile. Hemodynamically stable. White count 11.5. Hemoglobin 11.0. Platelets 299. Sodium 147. Potassium 4.3. Bicarb 32. BUN 23. Creatinine 0.6. Glucose 145. He remains on DuoNeb inhalations, IV Solu- Medrol. Antibiotics in form of Zosyn. Anticoagulated with Eliquis. Remains on Jevity tube feedings at 70 mL/h for nutritional support. Objective - Vital Signs Vital signs: Vital Signs Temp 97.9 F 02/14/25 08:00 Pulse 68 02/14/25 09:02 Resp 16 02/14/25 08:00 BP 161/85 02/14/25 08:00 Pulse Ox 95 02/14/25 08:53 FiO2 Intake & Output 02/13/25 02/14/25 02/14/25 18:59 06:59 18:59 Intake Total 1200 240 Output Total 1850 300 Balance -650 -60 Weight 79 kg Intake: Oral 1200 240 Output: Urine 1850 300 Other: Voiding Method External Catheter External Catheter External Catheter # Bowel Movements 1 - Exam GENERAL EXAM: Awake, pleasant 59-year-old male, sitting up in bed, on 4 L high flow nasal cannula, comfortable in no apparent distress. HEAD: Normocephalic and atraumatic EYES: Normal reaction of pupils, equal size. NOSE: Clear with pink turbinates. THROAT: No erythema or exudates. NECK: No masses, no JVD. CHEST: No chest wall deformity. LUNGS: Equal air entry with bilateral scattered rhonchi. CVS: S1 and S2 normal with no audible murmur, regular rhythm. No extra heart sounds ABDOMEN: PEG tube in place, active bowel sounds, no hepatosplenomegaly, no guarding or rigidity. SPINE: No scoliosis or deformity SKIN: No rashes CENTRAL NERVOUS SYSTEM: No focal deficits, tone is normal in all 4 extremities. EXTREMITIES: There is no peripheral edema, clubbing, or cyanosis. Peripheral pulses are intact. - Labs CBC & Chem 7: 02/14/25 06:29 02/14/25 06:29 Labs: Abnormal Lab Results - Last 24 Hours (Table) 02/14/25 02/14/25 Range/Units 06:29 06:29 WBC 11.57 H (4.50-10.00) X 10*3/uL RBC 3.95 L (4.40-5.60) X 10*6/uL Hgb 11.0 L (13.0-17.0) g/dL Hct 34.8 L (39.6-50.0) % MCHC 31.6 L (32.0-37.0) g/dL Immature Gran # 0.15 H (0.00-0.04) X 10*3/uL Neutrophils # 10.47 H (1.80-7.70) X 10*3/uL Lymphocytes # 0.40 L (0.90-5.00) X 10*3/uL Eosinophils # 0 L (0.04-0.35) X 10*3/uL Sodium 147 H (135-145) mmol/L Carbon Dioxide 32.1 H (21.6-31.8) mmol/L BUN/Creatinine Ratio 38.83 H (12.00-20.00) Ratio Glucose 145 H (70-110) mg/dL Calcium 8.5 L (8.7-10.3) mg/dL Total Bilirubin <0.2 L (0.3-1.2) mg/dL ALT 57 H (10-49) U/L Total Protein 4.8 L (6.2-8.2) g/dL Albumin 3.0 L (3.8-4.9) g/dL Microbiology - Last 24 Hours (Table) 02/09/25 11:26 Anaerobic Culture - Final Abdomen Assessment and Plan Assessment: Acute hypoxemic respiratory failure, currently on 6 L/min nasal cannula, chest CT angiogram which did not show any evidence of pulmonary embolism. There is extensive bilateral airspace consolidation, concerning for multilobar pneumonia. CTA of the chest was reviewed and compared to the earlier CAT scan that was done in [facility]. There is obvious progression in the interstitial and airspace opacities upper lobes bilaterally along with some areas of scarring and bronchiectasis. In addition, there is a bulky subcarinal lymph node. Rule out any chronic/persistent infections. Rule out malignancy or progression of esophageal cancer. Rule out immunotherapy related pneumonitis although this is felt to be less likely. Post bronchoscopy on 02/07/2025 with a BAL of the right upper lobe, transbronchial biopsy of the right upper lobe, transbronchial needle aspirate of the subcarinal lymph node. Cultures revealed no growth and pathology was nondiagnostic History of metastatic esophageal cancer status post chemoradiation, currently maintained on immunotherapy with Keytruda Remote history of oral cancer with previous reconstructive surgery Chronic dysphagia, with PEG tube and being nourished with Jevity History of pulmonary embolism, anticoagulated on Eliquis Chronic obstructive pulmonary disease Hypertension Former heavy tobacco use Former alcohol abuse Anxiety/depression Plan: The patient was seen and evaluated Labs and medications reviewed Stable on 4 L nasal cannula Titrate down the FiO2 as tolerated The patient does have home oxygen Continue flutter valve Continue DuoNeb inhalations Continue Jevity tube feedings Continue Eliquis Continue prednisone taper Antibiotics per ID service Increase his activity as tolerated Cleared for discharge from the pulmonary standpoint Plan is for subacute rehabilitation at [facility] This patient was seen independently by the pulmonary nurse practitioner addressing pulmonary issues I have personally seen and examined the patient, performed the documentation and the assessment and plan as written. Number of minutes spent on the visit: 24 Dictation was produced using [employer] dictation software. Please excuse any grammatical, word or spelling errors.
--- NOTE | 2025-02-14 12:39 | P.PN ---
Subjective HPI: 59-year-old male known to me from his previous hospitalization at [facility] came in with complaints of shortness of breath cough without any significant sputum production. Patient had a recent pulmonary embolism followed by second hospitalization for pneumonia patient was given antibiotics and systemic steroids were discharged home. Patient appears to have had bilateral airspace consolidation and multilobar pneumonia. Patient came back here with complaints of shortness of breath. Patient does not have any fever, does have mild leukocytosis patient had a CT of the chest which showed bronchiectatic changes in the right lung with possibly mild infiltrate with air bronchogram below that. Patient was started on levofloxacin and Zosyn in the ER. Patient had a procalcitonin which is not elevated. Patient had any fever or chills. Patient had a history of esophageal cancer status post chemoradiation therapy patient is still on Keytruda. Patient is mildly hyponatremic at 132. Subjective: 02/05/25: Patient seen at bedside. No significant overnight events. States his breathing is still a little labored but improving. 02/06/2025: Patient seen at bedside. No significant overnight events. Reports h is breathing still is slightly difficult, states it is better than before. Patient has no other complaints or concerns this time. 02/07/2025: Patient seen at bedside. No significant overnight events. States his breathing is significantly improved after receiving bronchoscopy with biopsies this morning. Patient has no other complaints concerns at this time. 02/08/2025: Patient seen at bedside no significant overnight events, patient had bronchoscopy yesterday today patient is saying this is the best he has felt since admission. Reports that he rapidly desaturates upon exertion however feel s like he has more energy today 02/09/2025: Patient seen at bedside no significant overnight events has decreased to 5 L nasal cannula still not tolerating exertion. No other complaints at this 02/10/2025: Patient seen at bedside, still requires 5 L nasal cannula, desaturating as soon as he exerts himself otherwise improving slowly 02/11/2025: Patient seen at bedside, still requiring 5L nasal cannula, not desaturating as fast, notice himself recovering faster. 02/12/25: Patient seen at bedside no complaints still desaturating on exertion 02/13/2025: Patient seen at bedside, still not tolerating exertion, continuing to ambulate as tolerated. 02/14/2025: Patient seen at bedside. Reports persistent exertional dyspnea. States oxygen was titrated down to 4.5 L last night however unable to tolerate. Denies cough, chest pain shortness of breath on rest. Pertinent positives and negatives discussed above, a complete review of systems was preformed and all the other sytems were negative. Vitals Signs Reviewed. GENERAL: The patient is alert and oriented x3, not in any acute distress. Well developed, well nourished. HEENT: Pupils are round and equally reacting to light. EOMI. No scleral icterus. No conjunctival pallor. Normocephalic, atraumatic. No pharyngeal erythema. No thyromegaly. CARDIOVASCULAR: S1 and S2 present. No murmurs, rubs, or gallops. PULMONARY: Improved air movement bilaterally, decreased wheezing auscultated compared to yesterday but still present ABDOMEN: Soft, nontender, nondistended, normoactive bowel sounds. No palpable organomegaly. MUSCULOSKELETAL: No joint swelling or deformity. EXTREMITIES: No cyanosis, clubbing, or pedal edema. Upper extremity edema nonpitting NEUROLOGICAL: Gross neurological examination did not reveal any focal deficits. SKIN: No rashes. Imaging: No new imaging. Assessment and plan #Acute hypoxic respiratory failure requiring 4 L of oxygen: Patient has bronchiectasis and possibly radiation induced lung damage rather than pneumonia. Patient has mild airspace consolidation probably from his previous pneumonia. -Status post bronchoscopy with biopsies. - On 5 L nasal cannula titrate down as tolerated Increase activity as tolerated - plan for DC to subacute rehab tomorrow. - Continue Eliquis -Continue Zosyn, currently on day 9. - Metastatic esophageal cancer status post chemoradiation therapy presently on immunotherapy with Keytruda - Mild leukocytosis can be reactive or can be secondary to pneumonia or bronchiectasis - COPD without any significant acute exacerbation - Hypertension: cont. to hold antihypertensive medication as BP has been wnl limits since admission - Anxiety/depression - cleared by speech therapy for PO intake with regular diet with thin liquids while seated in upright position -Had a history of COPD and alcohol abuse which are not issues now -Recent pulmonary embolism for which patient is on Eliquis which was resumed Discontinue Solu-Medrol as per pulmonology. #Upper extremity edema Continue monitoring for worsening edema. E none N tube feedings DVT ppx: Eliquis GI ppx: None Code Status: Full code Anticipated discharge place: Subacute Rehab Anticipated discharge time: Pending clinical course Objective - Vital Signs Vital signs: Vital Signs Temp 97.9 F 02/14/25 08:00 Pulse 68 02/14/25 09:02 Resp 16 02/14/25 08:00 BP 161/85 02/14/25 08:00 Pulse Ox 95 02/14/25 08:53 FiO2 Intake & Output 02/13/25 02/14/25 02/14/25 18:59 06:59 18:59 Intake Total 1200 240 Output Total 1850 300 Balance -650 -60 Weight 79 kg Intake: Oral 1200 240 Output: Urine 1850 300 Other: Voiding Method External Catheter External Catheter External Catheter # Bowel Movements 1 - Labs CBC & Chem 7: 02/16/25 04:29 02/16/25 04:29 Labs: Abnormal Lab Results - Last 24 Hours (Table) 02/14/25 02/14/25 Range/Units 06:29 06:29 WBC 11.57 H (4.50-10.00) X 10*3/uL RBC 3.95 L (4.40-5.60) X 10*6/uL Hgb 11.0 L (13.0-17.0) g/dL Hct 34.8 L (39.6-50.0) % MCHC 31.6 L (32.0-37.0) g/dL Immature Gran # 0.15 H (0.00-0.04) X 10*3/uL Neutrophils # 10.47 H (1.80-7.70) X 10*3/uL Lymphocytes # 0.40 L (0.90-5.00) X 10*3/uL Eosinophils # 0 L (0.04-0.35) X 10*3/uL Sodium 147 H (135-145) mmol/L Carbon Dioxide 32.1 H (21.6-31.8) mmol/L BUN/Creatinine Ratio 38.83 H (12.00-20.00) Ratio Glucose 145 H (70-110) mg/dL Calcium 8.5 L (8.7-10.3) mg/dL Total Bilirubin <0.2 L (0.3-1.2) mg/dL ALT 57 H (10-49) U/L Total Protein 4.8 L (6.2-8.2) g/dL Albumin 3.0 L (3.8-4.9) g/dL Microbiology - Last 24 Hours (Table) 02/09/25 11:26 Anaerobic Culture - Final Abdomen Assessment and Plan Assessment: Attestation Attestation/ Toe Trimmer Note: Attestation to Progress Note, Participation (I saw and evaluated the patient with the Resident, and I reviewed and discussed the patient with the Resident and agree with the Resident's findings and plans as documented above., management reviewed and discussed), I agree with findings & plan, Provider Signature (LUIS BERMAN, JOESPH Patino Time with Patient: Greater than 30
[2025-02-14] MEDS: NYSTATIN 100,000 UNIT/ML SUSP 500,000 UNIT/5 ML CUP PO SCH (13:57)
--- NOTE | 2025-02-14 15:39 | P.PN ---
Subjective Progress Note Date: 02/14/25 Principal diagnosis: Reason for follow-up is PEG tube site cellulitis Patient is a 59-year-old male with a past medical history significant for COPD reflux hypertension PE history of esophageal cancer status post PEG tube placement in February 2022 patient presented to the hospital about a week ago for evaluation of increasing shortness of breath has been diagnosed with a pneumonia also noticed to have drainage from his PEG tube site prompted this consultation. On today's evaluation that is 02/14/2025, patient did have a temperature of 98 F this morning and denies having any chills, patient is on 4.5 L nasal cannula oxygen and breathing comfortably no chest pain or cough, the patient did not have any nausea vomiting abdominal pain or any diarrhea complaining of some thrush. Patient white count is down to 11.57, creatinine 0.6 Objective - Vital Signs Vital signs: Vital Signs Temp 98 F 02/14/25 12:49 Pulse 59 L 02/14/25 15:24 Resp 16 02/14/25 12:49 BP 152/79 02/14/25 12:49 Pulse Ox 98 02/14/25 12:49 FiO2 Intake & Output 02/13/25 02/14/25 02/14/25 18:59 06:59 18:59 Intake Total 1200 240 Output Total 1850 300 Balance -650 -60 Weight 79 kg Intake: Oral 1200 240 Output: Urine 1850 300 Other: Voiding Method External Catheter External Catheter External Catheter # Bowel Movements 1 - Exam GENERAL DESCRIPTION: Middle aged male lying in bed in no distress RESPIRATORY SYSTEM: Unlabored breathing , decreased breath sounds at bases HEART: S1 S2 regular rate and rhythm , ABDOMEN: Soft , no tenderness EXTREMITIES: No edema feet - Labs CBC & Chem 7: 02/14/25 06:29 02/14/25 06:29 Labs: Abnormal Lab Results - Last 24 Hours (Table) 02/14/25 02/14/25 Range/Units 06:29 06:29 WBC 11.57 H (4.50-10.00) X 10*3/uL RBC 3.95 L (4.40-5.60) X 10*6/uL Hgb 11.0 L (13.0-17.0) g/dL Hct 34.8 L (39.6-50.0) % MCHC 31.6 L (32.0-37.0) g/dL Immature Gran # 0.15 H (0.00-0.04) X 10*3/uL Neutrophils # 10.47 H (1.80-7.70) X 10*3/uL Lymphocytes # 0.40 L (0.90-5.00) X 10*3/uL Eosinophils # 0 L (0.04-0.35) X 10*3/uL Sodium 147 H (135-145) mmol/L Carbon Dioxide 32.1 H (21.6-31.8) mmol/L BUN/Creatinine Ratio 38.83 H (12.00-20.00) Ratio Glucose 145 H (70-110) mg/dL Calcium 8.5 L (8.7-10.3) mg/dL Total Bilirubin <0.2 L (0.3-1.2) mg/dL ALT 57 H (10-49) U/L Total Protein 4.8 L (6.2-8.2) g/dL Albumin 3.0 L (3.8-4.9) g/dL Microbiology - Last 24 Hours (Table) 02/09/25 11:26 Anaerobic Culture - Final Abdomen Assessment and Plan (1) Abdominal wall cellulitis Current Visit: Yes Status: Acute Code(s): L03.311 - CELLULITIS OF ABDOMINAL WALL SNOMED Code(s): 21569534 (2) Bilateral pneumonia Current Visit: Yes Status: Acute Code(s): J18.9 - PNEUMONIA, UNSPECIFIED ORGANISM SNOMED Code(s): 688804525 Plan: 1patient with initially presented hospital with increasing shortness of breath and cough did have evidence of bilateral consolidation status post bronchoscopy and lavage blood culture currently pending initial sputum with Lee Ann albicans 2patient with PEG tube site erythema and drainage more likely related to irritation from the gastric secretions with secondary bacterial cellulitis less likely but not entirely excluded .3-local culture currently growing Lee Ann albicans as well as Lee Ann krui possible GI gill patient is on SSRI contraindicating the use of Diflucan /voriconazole currently being treated nystatin cream around the PEG tube site. 4-patient white count is trending down, will complete his IV Zosyn therapy today nystatin swish and swallow added for thrush Dictation was produced using [employer] dictation software. please excuse any grammatical, word or spelling errors. Time with Patient: Less than 30
[2025-02-15 04:58] LABS: Basophils # (A) 0.02 10*3/uL (0.00-0.10); Basophils % (A) 0.2 %; Eosinophils # (A) 0.00 10*3/uL (0.04-0.35); Eosinophils % (A) 0.0 %; HCT 33.5 % (39.6-50.0); HGB 10.8 g/dL (13.0-17.0); Lymphocytes # (A) 0.71 10*3/uL (0.90-5.00); Lymphocytes % (A) 5.9 %; MCH 28.4 pg (27.0-32.0); MCHC 32.2 g/dL (32.0-37.0); MCV 88.2 fL (80.0-97.0); Monocytes # (A) 1.46 10*3/uL (0.20-1.00); Monocytes % (A) 12.1 %; Neutrophils # (A) 9.70 10*3/uL (1.80-7.70); Neutrophils % (A) 80.1 %; Platelet Count 296 10*3/uL (140-440); RBC 3.80 10*6/uL (4.40-5.60); RDW 13.3 % (11.5-14.5); WBC 12.09 10*3/uL (4.50-10.00)
[2025-02-15 05:12] LABS: ALT 51 U/L (4-49); AST 40 U/L (17-59); African American GFR (CKD) >90 (>60 ml/min/1.73 sqM); Albumin 2.4 g/dL (3.5-5.0); Albumin/Globulin Ratio 1.1; Alkaline Phosphatase 84 U/L (38-126); Anion Gap -2 mmol/L; Blood Urea Nitrogen 25 mg/dL (9-20); Calcium 8.3 mg/dL (8.4-10.2); Carbon Dioxide 37 mmol/L (22-30); Chloride 100 mmol/L (98-107); Globulin 2.2 g/dL; Glucose 104 mg/dL (74-99); Non-African American GFR(CKD) >90 (>60 ml/min/1.73 sqM); Potassium 4.1 mmol/L (3.5-5.1); Sodium 135 mmol/L (137-145); Total Protein 4.6 g/dL (6.3-8.2)
[2025-02-15] MEDS: predniSONE 20 MG TAB PO SCH (09:14)
--- NOTE | 2025-02-15 10:22 | P.PN ---
Subjective Progress Note Date: 02/15/25 HPI: 59-year-old male known to me from his previous hospitalization at [facility] came in with complaints of shortness of breath cough without any significant sputum production. Patient had a recent pulmonary embolism followed by second hospitalization for pneumonia patient was given antibiotics and systemic steroids were discharged home. Patient appears to have had bilateral airspace consolidation and multilobar pneumonia. Patient came back here with complaints of shortness of breath. Patient does not have any fever, does have mild leukocytosis patient had a CT of the chest which showed bronchiectatic changes in the right lung with possibly mild infiltrate with air bronchogram below that. Patient was started on levofloxacin and Zosyn in the ER. Patient had a procalcitonin which is not elevated. Patient had any fever or chills. Patient had a history of esophageal cancer status post chemoradiation therapy patient is still on Keytruda. Patient is mildly hyponatremic at 132. Subjective: 02/05/25: Patient seen at bedside. No significant overnight events. States his breathing is still a little labored but improving. 02/06/2025: Patient seen at bedside. No significant overnight events. Reports his breathing still is slightly difficult, states it is better than before. Patient has no other complaints or concerns this time. 02/07/2025: Patient seen at bedside. No significant overnight events. States his breathing is significantly improved after receiving bronchoscopy with biopsies this morning. Patient has no other complaints concerns at this time. 02/08/2025: Patient seen at bedside no significant overnight events, patient had bronchoscopy yesterday today patient is saying this is the best he has felt since admission. Reports that he rapidly desaturates upon exertion however feels like he has more energy today 02/09/2025: Patient seen at bedside no significant overnight events has decreased to 5 L nasal cannula still not tolerating exertion. No other complaints at this 02/10/2025: Patient seen at bedside, still requires 5 L nasal cannula, desaturating as soon as he exerts himself otherwise improving slowly 02/11/2025: Patient seen at bedside, still requiring 5L nasal cannula, not desaturating as fast, notice himself recovering faster. 02/12/25: Patient seen at bedside no complaints still desaturating on exertion 02/13/2025: Patient seen at bedside, still not tolerating exertion, continuing to ambulate as tolerated. 02/14/2025: Patient seen at bedside. Reports persistent exertional dyspnea. States oxygen was titrated down to 4.5 L last night however unable to tolerate. Denies cough, chest pain shortness of breath on rest. 02/15/2025: Patient seen at bedside still complaining of exertional dyspnea, working with OT and feeling short of breath during bedside exercises. Otherwise no new concerns Pertinent positives and negatives discussed above, a complete review of systems was preformed and all the other sytems were negative. Vitals Signs Reviewed. GENERAL: The patient is alert and oriented x3, not in any acute distress. Well developed, well nourished. HEENT: Pupils are round and equally reacting to light. EOMI. No scleral icterus. No conjunctival pallor. Normocephalic, atraumatic. No pharyngeal erythema. No thyromegaly. CARDIOVASCULAR: S1 and S2 present. No murmurs, rubs, or gallops. PULMONARY: Improved air movement bilaterally, decreased wheezing auscultated compared to yesterday but still present ABDOMEN: Soft, nontender, nondistended, normoactive bowel sounds. No palpable organomegaly. MUSCULOSKELETAL: No joint swelling or deformity. EXTREMITIES: No cyanosis, clubbing, or pedal edema. Upper extremity edema nonpitting NEUROLOGICAL: Gross neurological examination did not reveal any focal deficits. SKIN: No rashes. Imaging: No new imaging. Assessment and plan #Acute hypoxic respiratory failure requiring 4 L of oxygen: Patient has bronchiectasis and possibly radiation induced lung damage rather than pneumonia. Patient has mild airspace consolidation probably from his previous pneumonia. -Status post bronchoscopy with biopsies. - On 5 L nasal cannula titrate down as tolerated Increase activity as tolerated - plan for DC to subacute rehab tomorrow. - Continue Eliquis -Continue Zosyn, currently on day 9. - Metastatic esophageal cancer status post chemoradiation therapy presently on immunotherapy with Keytruda - Mild leukocytosis can be reactive or can be secondary to pneumonia or bronchiectasis - COPD without any significant acute exacerbation - Hypertension: cont. to hold antihypertensive medication as BP has been wnl limits since admission - Anxiety/depression - cleared by speech therapy for PO intake with regular diet with thin liquids while seated in upright position -Had a history of COPD and alcohol abuse which are not issues now -Recent pulmonary embolism for which patient is on Eliquis which was resumed Discontinue Solu-Medrol as per pulmonology. #Upper extremity edema Continue monitoring for worsening edema. - 20 lasix once E none N tube feedings DVT ppx: Eliquis GI ppx: None Code Status: Full code Anticipated discharge place: Subacute Rehab Anticipated discharge time: Pending clinical course Objective - Vital Signs Vital signs: Vital Signs Temp 97.9 F 02/15/25 08:00 Pulse 61 02/15/25 08:00 Resp 18 02/15/25 08:00 BP 154/80 02/15/25 08:00 Pulse Ox 97 02/15/25 08:00 FiO2 Intake & Output 02/14/25 02/15/25 02/15/25 18:59 06:59 18:59 Output Total 400 Balance -400 Weight 79.5 kg Output: Urine 400 Other: Voiding Method External Catheter External Catheter - Labs CBC & Chem 7: 02/16/25 04:29 02/16/25 04:29 Labs: Abnormal Lab Results - Last 24 Hours (Table) 02/14/25 02/14/25 02/15/25 Range/Units 06:29 06:29 04:28 WBC 11.57 H 12.09 H (4.50-10.00) X 10*3/uL RBC 3.95 L 3.80 L (4.40-5.60) X 10*6/uL Hgb 11.0 L 10.8 L (13.0-17.0) g/dL Hct 34.8 L 33.5 L (39.6-50.0) % MCHC 31.6 L (32.0-37.0) g/dL MPV 9.2 L (9.5-12.2) fL Immature Gran # 0.15 H 0.20 H (0.00-0.04) X 10*3/uL Neutrophils # 10.47 H 9.70 H (1.80-7.70) X 10*3/uL Lymphocytes # 0.40 L 0.71 L (0.90-5.00) X 10*3/uL Monocytes # 1.46 H (0.20-1.00) 10*3/uL Eosinophils # 0 L 0.00 L (0.04-0.35) X 10*3/uL Sodium 147 H (135-145) mmol/L Carbon Dioxide 32.1 H (21.6-31.8) mmol/L BUN (9-20) mg/dL BUN/Creatinine Ratio 38.83 H (12.00-20.00) Ratio Glucose 145 H (70-110) mg/dL Calcium 8.5 L (8.7-10.3) mg/dL Total Bilirubin <0.2 L (0.3-1.2) mg/dL ALT 57 H (10-49) U/L Total Protein 4.8 L (6.2-8.2) g/dL Albumin 3.0 L (3.8-4.9) g/dL 02/15/25 Range/Units 04:28 WBC (4.50-10.00) X 10*3/uL RBC (4.40-5.60) X 10*6/uL Hgb (13.0-17.0) g/dL Hct (39.6-50.0) % MCHC (32.0-37.0) g/dL MPV (9.5-12.2) fL Immature Gran # (0.00-0.04) X 10*3/uL Neutrophils # (1.80-7.70) X 10*3/uL Lymphocytes # (0.90-5.00) X 10*3/uL Monocytes # (0.20-1.00) 10*3/uL Eosinophils # (0.04-0.35) X 10*3/uL Sodium 135 L (135-145) mmol/L Carbon Dioxide 37 H (21.6-31.8) mmol/L BUN 25 H (9-20) mg/dL BUN/Creatinine Ratio (12.00-20.00) Ratio Glucose 104 H (70-110) mg/dL Calcium 8.3 L (8.7-10.3) mg/dL Total Bilirubin (0.3-1.2) mg/dL ALT 51 H (10-49) U/L Total Protein 4.6 L (6.2-8.2) g/dL Albumin 2.4 L (3.8-4.9) g/dL Assessment and Plan Assessment: Attestation Attestation/ Gutter Installer Note: Attestation to Progress Note, Participation (I saw and evaluated the patient with the Resident, and I reviewed and discussed the patient with the Resident and agree with the Resident's findings and plans as documented above., management reviewed and discussed), I agree with findings & plan, Provider Signature (LUIS BERMAN, JOESPH Carson. Time with Patient: Greater than 30
--- NOTE | 2025-02-15 10:45 | P.PN ---
Subjective Progress Note Date: 02/15/25 Patient is a 59-year-old male with past medical history significant for COPD, former heavy tobacco use, former alcohol abuse, remote oral cancer with previous reconstructive surgery. More recently, diagnosed with metastatic gastroesophageal cancer approximately 3 years ago. Status post chemoradiation, currently maintained on Keytruda. His oncologist is Dr. Rios. He has chronic dysphagia and has a PEG tube. Still has oral intake. Patient brought in by EMS early this morning. He had significant shortness of breath. Reportedly, released from [facility] approximately 1-1/2 weeks ago with bilateral pneumonia. He finished his antibiotics outpatient. Also, diagnosed with pulmonary embolism and started on Eliquis. Workup in the emergency department including a chest CT angiogram which did not show any evidence of pulmonary embolism. There is extensive bilateral airspace consolidation concerning for multilobar pneumonia. Chronic underlying appearance with bronchiectasis concerning for underlying lung scarring and probable post- treatment changes. No prior imaging available for comparison. CBC: WBC count 11.18, hemoglobin 14.2, platelets 224. CMP: Sodium 132, potassium 4.1, chloride 96, serum bicarb 26, BUN 21, creatinine 0.54, glucose 112. Lactic 2.7 down to 1.8. LFTs unremarkable. Troponin less than 0.012. NT proBNP 303. Patient currently being evaluated emergency department. Nontoxic appearance. States that shortness of breath developed in the last 24 hours. No significant coughing. No significant sputum production or hemoptysis. No fevers or chills. He has chronic issues with dysphagia. Has PEG tube, but still has oral intake. He has been started empirically on Levaquin and Zosyn in the ED. Nonlocalized chest pain. No palpitations, syncopal events, lower extremity edema. Normal saline infusing at 100 mL/h. Current vital signs: Temperature 99.4 F, heart rate 92 bpm, blood pressure 136/89 mmHg, nontachypneic, SpO2 recorded at 97% on 4 L/min nasal cannula. 02/05/2025, the patient is clinically unchanged. We reviewed the CAT scan of the chest and compared to the earlier CAT scans that was done at [facility]. Discussed the case also with his oncologist and the patient will need a bronchoscopy and transbronchial biopsies and transbronchial needle aspirate of subcarinal lymph node. The patient is afebrile. White cell count 11.7. Hemoglobin 9.4. Electrolytes all within normal limits. Procalcitonin level is 0.15. Remains on broad-spectrum antibiotics to IV Zosyn. Remains on IV fluids. Coagulations currently on hold in preparation for bronchoscopy to be done in a.m. He remains on 4 L of oxygen by nasal cannula with a pulse ox of 98%. 02/06/2025, clinically unchanged The patient was taken off anticoagulation. Bronchoscopy is to be done tomorrow morning. Meanwhile, he remains on IV Zosyn. Oxygenation remains unchanged and the patient remains on O2 at 3 L with a pulse ox of 93%. Afebrile. Hemodynamically stable. White cell count at 9.1 with a hemoglobin 11.1 and a platelet count of 180. BUN is 7 with a creatinine of 0.6. Sodium levels at 137. Blood culture has been negative. On 02/07/2025, the patient is being seen for a follow-up. Overall condition is essentially unchanged. He remains on oxygen and currently is on 60s of oxygen nasal cannula with a pulse ox of 97%. Bronchoscopy was performed today. I performed transbronchial biopsy of the right upper lobe. In addition, I perf ormed endobronchial ultrasound and transbronchial needle aspirate of subcarinal lymph node endobronchial lavage of the right upper lobe. Post bronchoscopy chest x-ray showed similar multifocal airspace disease. No evidence of any complication or pneumothorax postprocedure. Noted, the patient anticoagulation can be resumed following the procedure. Patient otherwise doing well. No new complaints. Remains on IV Zosyn. Will go ahead and add IV Solu-Medrol in addition. The white cell count is at 9.1 with a hemoglobin 11.1 and a platelet count of 180. Legionella urine antigen was negative. Electrolytes all within normal limits. Blood cultures been negative. The procalcitonin level is at 0.15. On today's evaluation of 02/08/2025, the patient is being seen for a follow-up. Resting comfortably in bed. Continues to have a cough. Bronchoscopy was completed yesterday without any complications. Bronchoalveolar lavage of the right upper lobe was done. In addition to that, the patient had transbronchial biopsy of the right upper lobe and endobronchial ultrasound and biopsy of the s ubcarinal lymph node. Results of the BAL are still pending. The patient is currently on IV Zosyn. The patient is also on IV Solu-Medrol 40 mg every 6 hours. Labs from today shows a white cell count of 7.3 with a hemoglobin of 10.8. BUN is 9 with a creatinine of 0.4 and a sodium level at 141. Will be following up on the patient's biopsy results. He remains on 40 of oxygen by nasal cannula. Anticoagulation was resumed. The patient is also receiving enteral feeding for nutritional support. The patient is seen today February 09, 2025 in follow-up on the regular medical floor. He is currently sitting up in bed. Awake and alert in no acute distress. Maintaining O2 saturations in the 90s on 6 L/min per nasal cannula. He has a productive cough of clear phlegm. He is dyspneic with conversation. Dyspneic with minimal exertion. He remains on Zosyn. He has been nourished with Jevity 1.5 at 70 mL/h. Bronchoalveolar lavage cultures revealed no growth. Biopsy is pending. Sputum culture revealed Lee Ann. Blood culture revealed no growth. White count 10.7. Hemoglobin 10.1. Platelets 245. Sodium 143. Potassium 4.1. Bicarb 26. BUN 12. Creatinine 0.6. Glucose 195. He remains on bronchodilators. Remains on Solu-Medrol. Morphine for pain control. Normal saline at 100 mL/h. Plan is to resume his Eliquis today. The patient is seen today February 10, 2025 in follow-up on the regular medical floor. He is awake and alert in no acute distress. Sitting up in bed having breakfast. Tolerating soft foods. Continues to be nourished with Jevity at 70 mL/h. He states he is breathing easier today compared to yesterday. He appears more comfortable. Less dyspnea with conversation. Less dyspnea with exertion. Still requiring 5 L high flow nasal cannula to maintain O2 saturation in the low 90s. He has been afebrile. Hemodynamically stable. Bronchial wash cultures revealed no growth. Blood culture revealed no growth. Sputum culture with Lee Ann. Abdominal wound culture with Lee Ann albicans. No new labs today. He remains on albuterol as needed. Continued on Solu-Medrol. Continued on Zosyn. Anticoagulated with Eliquis. Continued on his anxiety/depression medications. The patient is seen today February 11, 2025 in follow-up on the regular medical floor. He is currently sitting up in bed. Awake and alert in no acute distress. Feeling better today compared to yesterday. Not quite back to his baseline. Still with some dyspnea on minimal exertion. Currently maintaining good O2 saturations in the mid 90s on 5 L high flow nasal cannula. He is afebri le. Hemodynamically stable. Chest x-ray shows extensive bilateral airspace disease with some slight improvement. Bronchial wash cultures revealed no growth. Transbronchial biopsies were nondiagnostic. White count 11.8. Hemoglobin 11.0. Platelets 279. Sodium 139. Potassium 4.2. Bicarb 29. BUN 14. Creatinine 0.6. Glucose 200. He remains on DuoNeb inhalations, IV Solu- Medrol. Antibiotics in the form of Zosyn. Continued on Eliquis. He is being nourished with Jevity at 70 mL/h. The patient is seen today February 12, 2025 in follow-up on the regular medical floor. He is awake and alert in no acute distress. Sitting up in bed. Breathing easier today compared to yesterday. Maintaining O2 saturations in the 90s on 5 L/min per nasal cannula. He has been afebrile. Hemodynamically stable. Sputum culture was positive for Lee Ann. Abdominal culture from PEG tube site positive for Lee Ann albicans, Pichia kuiavzevii. White count 12.5. Hemoglobin 11.8. Platelets 303. Sodium 137. Potassium 4.6. Bicarb 34. BUN 19. Creatinine 0.51. Glucose 145. He remains on DuoNeb inhalations, IV Solu- Medrol. Antibiotics in the form of Zosyn. Anticoagulated with Eliquis. Being nourished with Jevity tube feedings at 70 mL/h. The patient is seen today February 13, 2025 for follow-up on the regular medical floor. He is awake and alert in no acute distress. Sitting up having edgardo kfast. Denies any worsening shortness of breath, cough or congestion. Less dyspnea on exertion. Maintaining good O2 saturations in the 90s on 4 L/min per nasal cannula. White count 12.5. Hemoglobin 11.8. Platelets 303. Sodium 137. Potassium 4.6. Bicarb 34. BUN 19. Creatinine 0.51. Glucose 145. He remains on DuoNeb inhalations, IV Solu-Medrol. Antibiotics in the form of Zosyn. Anticoagulated with Eliquis. Abdominal culture from PEG tube site positive for Lee Ann albicans, Pichia kudriavzevii. Sputum culture positive for Lee Ann. Infectious disease is following. He remains on Jevity at 70 mL/h for nutritional support. The patient is seen today February 14, 2025 in follow-up on the regular medical floor. He is currently sitting up in bed. Awake and alert in no acute distress. Maintaining good O2 saturations in the 90s on 4 L/min per nasal cannula. He has been afebrile. Hemodynamically stable. White count 11.5. Hemoglobin 11.0. Platelets 299. Sodium 147. Potassium 4.3. Bicarb 32. BUN 23. Creatinine 0.6. Glucose 145. He remains on DuoNeb inhalations, IV Solu- Medrol. Antibiotics in form of Zosyn. Anticoagulated with Eliquis. Remains on Jevity tube feedings at 70 mL/h for nutritional support. The patient is seen today February 15, 2025 in follow-up on the regular medical floor. He is awake and alert in no acute distress. Resting comfortably in bed. Maintaining O2 saturations in the high 90s on 4 to 5 L/min per nasal cannula. He has been afebrile. Hemodynamically stable. Still with dyspnea on exertion. Bronchial wash cultures revealed no growth. White count 12.0. Hemoglobin 10.8. Platelets 296. Sodium 135. Potassium 4.1. Bicarb 37. BUN 25. Creatinine 0.66. Glucose 104. He remains on DuoNeb and elations. Anticoagulated with Eliquis. Antibiotics in the form of Zosyn. Objective - Vital Signs Vital signs: Vital Signs Temp 97.9 F 02/15/25 08:00 Pulse 61 02/15/25 08:00 Resp 18 02/15/25 08:00 BP 154/80 02/15/25 08:00 Pulse Ox 97 02/15/25 08:00 FiO2 Intake & Output 02/14/25 02/15/25 02/15/25 18:59 06:59 18:59 Intake Total 750 Output Total 400 Balance -400 750 Weight 79.5 kg Intake: Oral 200 Tube Feeding 550 Output: Urine 400 Other: Voiding Method External Catheter External Catheter External Catheter - Exam GENERAL EXAM: Awake, 59-year-old male, sitting up in bed, on 5 L high flow nasal cannula, comfortable in no apparent distress. HEAD: Normocephalic and atraumatic EYES: Normal reaction of pupils, equal size. NOSE: Clear with pink turbinates. THROAT: No erythema or exudates. NECK: No masses, no JVD. CHEST: No chest wall deformity. LUNGS: Equal air entry with bilateral scattered rhonchi. CVS: S1 and S2 normal with no audible murmur, regular rhythm. No extra heart sounds ABDOMEN: PEG tube in place, active bowel sounds, no hepatosplenomegaly, no guarding or rigidity. SPINE: No scoliosis or deformity SKIN: No rashes CENTRAL NERVOUS SYSTEM: No focal deficits, tone is normal in all 4 extremities. EXTREMITIES: There is no peripheral edema, clubbing, or cyanosis. Peripheral pulses are intact. - Labs CBC & Chem 7: 02/15/25 04:28 02/15/25 04:28 Labs: Abnormal Lab Results - Last 24 Hours (Table) 02/15/25 02/15/25 Range/Units 04:28 04:28 WBC 12.09 H (4.50-10.00) 10*3/uL RBC 3.80 L (4.40-5.60) 10*6/uL Hgb 10.8 L (13.0-17.0) g/dL Hct 33.5 L (39.6-50.0) % MPV 9.2 L (9.5-12.2) fL Immature Gran # 0.20 H (0.00-0.04) 10*3/uL Neutrophils # 9.70 H (1.80-7.70) 10*3/uL Lymphocytes # 0.71 L (0.90-5.00) 10*3/uL Monocytes # 1.46 H (0.20-1.00) 10*3/uL Eosinophils # 0.00 L (0.04-0.35) 10*3/uL Sodium 135 L (137-145) mmol/L Carbon Dioxide 37 H (22-30) mmol/L BUN 25 H (9-20) mg/dL Glucose 104 H (74-99) mg/dL Calcium 8.3 L (8.4-10.2) mg/dL ALT 51 H (4-49) U/L Total Protein 4.6 L (6.3-8.2) g/dL Albumin 2.4 L (3.5-5.0) g/dL Assessment and Plan Assessment: Acute hypoxemic respiratory failure, currently on 6 L/min nasal cannula, chest CT angiogram which did not show any evidence of pulmonary embolism. There is extensive bilateral airspace consolidation, concerning for multilobar pneumonia. CTA of the chest was reviewed and compared to the earlier CAT scan that was done in [facility]. There is obvious progression in the interstitial and airspace opacities upper lobes bilaterally along with some areas of scarring and bronchiectasis. In addition, there is a bulky subcarinal lymph node. Rule out any chronic/persistent infections. Rule out malignancy or progression of esophageal cancer. Rule out immunotherapy related pneumonitis although this is felt to be less likely. Post bronchoscopy on 02/07/2025 with a BAL of the right upper lobe, transbronchial biopsy of the right upper lobe, transbronchial needle aspirate of the subcarinal lymph node. Cultures revealed no growth and pathology was nondiagnostic History of metastatic esophageal cancer status post chemoradiation, currently maintained on immunotherapy with Keytruda Remote history of oral cancer with previous reconstructive surgery Chronic dysphagia, with PEG tube and being nourished with Jevity History of pulmonary embolism, anticoagulated on Eliquis Chronic obstructive pulmonary disease Hypertension Former heavy tobacco use Former alcohol abuse Anxiety/depression Plan: The patient was seen and evaluated Labs and medications reviewed Stable on 4-5 L nasal cannula Titrate down the FiO2 as tolerated The patient does have home oxygen Continue flutter valve Continue DuoNeb inhalations Continue Jevity tube feedings Continue Eliquis Continue prednisone taper Completed Zosyn Continued on nystatin swish and swallow Increase his activity as tolerated Plan is for subacute rehabilitation at [facility] possibly tomorrow This patient was seen independently by the pulmonary nurse practitioner a ddressing pulmonary issues I have personally seen and examined the patient, performed the documentation and the assessment and plan as written. Number of minutes spent on the visit: 25 Dictation was produced using [employer] dictation software. Please excuse any grammatical, word or spelling errors.
[2025-02-15] MEDS: FUROSEMIDE 10 MG/ML 2 ML VIAL IV ONE (10:57)
--- NOTE | 2025-02-15 15:57 | P.PN ---
Subjective Progress Note Date: 02/15/25 Principal diagnosis: Reason for follow-up is PEG tube site cellulitis Patient is a 59-year-old male with a past medical history significant for COPD reflux hypertension PE history of esophageal cancer status post PEG tube placement in February 2022 patient presented to the hospital about a week ago for evaluation of increasing shortness of breath has been diagnosed with a pneumonia also noticed to have drainage from his PEG tube site prompted this consultation. On today's evaluation that is 02/15/2025, Patient is afebrile patient is currently on 5 L and oxygen and denies having any shortness of breath, the patient denies any chest pain or cough, the patient denies any nausea vomiting did not have any abdominal pain and no diarrhea patient with modest 1.09 creat inine 0.66 Objective - Vital Signs Vital signs: Vital Signs Temp 98.3 F 02/15/25 14:19 Pulse 72 02/15/25 15:46 Resp 18 02/15/25 14:19 BP 145/81 02/15/25 14:19 Pulse Ox 95 02/15/25 14:19 FiO2 Intake & Output 02/14/25 02/15/25 02/15/25 18:59 06:59 18:59 Intake Total 1025 Output Total 400 2600 Balance -400 -1575 Weight 79.5 kg Intake: Oral 475 Tube Feeding 550 Output: Urine 400 2600 Other: Voiding Method External Catheter External Catheter External Catheter - Exam GENERAL DESCRIPTION: Middle aged male lying in bed in no distress RESPIRATORY SYSTEM: Unlabored breathing , decreased breath sounds at bases HEART: S1 S2 regular rate and rhythm , ABDOMEN: Soft , no tenderness EXTREMITIES: No edema feet - Labs CBC & Chem 7: 02/15/25 04:28 02/15/25 04:28 Labs: Abnormal Lab Results - Last 24 Hours (Table) 02/15/25 02/15/25 Range/Units 04:28 04:28 WBC 12.09 H (4.50-10.00) 10*3/uL RBC 3.80 L (4.40-5.60) 10*6/uL Hgb 10.8 L (13.0-17.0) g/dL Hct 33.5 L (39.6-50.0) % MPV 9.2 L (9.5-12.2) fL Immature Gran # 0.20 H (0.00-0.04) 10*3/uL Neutrophils # 9.70 H (1.80-7.70) 10*3/uL Lymphocytes # 0.71 L (0.90-5.00) 10*3/uL Monocytes # 1.46 H (0.20-1.00) 10*3/uL Eosinophils # 0.00 L (0.04-0.35) 10*3/uL Sodium 135 L (137-145) mmol/L Carbon Dioxide 37 H (22-30) mmol/L BUN 25 H (9-20) mg/dL Glucose 104 H (74-99) mg/dL Calcium 8.3 L (8.4-10.2) mg/dL ALT 51 H (4-49) U/L Total Protein 4.6 L (6.3-8.2) g/dL Albumin 2.4 L (3.5-5.0) g/dL Assessment and Plan (1) Abdominal wall cellulitis Current Visit: Yes Status: Acute Code(s): L03.311 - CELLULITIS OF ABDOMINAL WALL SNOMED Code(s): 61740238 (2) Bilateral pneumonia Current Visit: Yes Status: Acute Code(s): J18.9 - PNEUMONIA, UNSPECIFIED ORGANISM SNOMED Code(s): 342755605 (3) Oral thrush Current Visit: Yes Status: Acute Code(s): B37.0 - CANDIDAL STOMATITIS SNOMED Code(s): 10437751 Plan: 1patient with initially presented hospital with increasing shortness of breath and cough did have evidence of bilateral consolidation status post bronchoscopy and lavage blood culture currently pending initial sputum with Lee Ann albicans 2patient with PEG tube site erythema and drainage more likely related to irritation from the gastric secretions with secondary bacterial cellulitis less likely but not entirely excluded .3-local culture currently growing Lee Ann albicans as well as Lee Ann krui possible GI gill patient is on SSRI contraindicating the use of Difluc an/voriconazole currently being treated nystatin cream around the PEG tube site. 4-patient white count is slightly up today nystatin swish and swallow was added for the thrush did have improvement and received a 10-day course of Zosyn should have enough and discontinue Zosyn and monitor the patient closely off antibiotic therapy Dictation was produced using [employer] dictation software. please excuse any grammatical, word or spelling errors.
[2025-02-16 08:01] LABS: ALT 53 U/L (10-49); AST 27 U/L (14-35); Albumin 2.9 g/dL (3.8-4.9); Albumin/Globulin Ratio 1.71 Ratio (1.60-3.17); Alkaline Phosphatase 89 U/L (41-126); Anion Gap 7.80 mmol/L (4.00-12.00); BUN/Creat Ratio 32.00 Ratio (12.00-20.00); Blood Urea Nitrogen 22.4 mg/dL (9.0-27.0); Calcium 8.4 mg/dL (8.7-10.3); Carbon Dioxide 31.2 mmol/L (21.6-31.8); Chloride 99 mmol/L (96-109); Globulin 1.7 g/dL (1.6-3.3); Glucose 117 mg/dL (70-110); Potassium 4.3 mmol/L (3.5-5.5); Sodium 138 mmol/L (135-145); Total Protein 4.6 g/dL (6.2-8.2)
[2025-02-16 08:05] LABS: Basophils # (A) 0.05 X 10*3/uL (0.00-0.10); Basophils % (A) 0.4 %; Eosinophils # (A) 0.01 X 10*3/uL (0.04-0.35); Eosinophils % (A) 0.1 %; HCT 35.5 % (39.6-50.0); HGB 11.2 g/dL (13.0-17.0); Immature Grans, Automated 2.90 %; Lymphocytes # (A) 0.63 X 10*3/uL (0.90-5.00); Lymphocytes % (A) 5.0 %; MCH 27.9 pg (27.0-32.0); MCHC 31.5 g/dL (32.0-37.0); MCV 88.3 FL (80.0-97.0); Monocytes # (A) 1.21 X 10*3/uL (0.20-1.00); Monocytes % (A) 9.7 %; NRBC Per 100 WBC 0 X 10*3/uL (0.00-0.01); Neutrophils # (A) 10.24 X 10*3/uL (1.80-7.70); Neutrophils % (A) 81.9 %; Platelet Count 300 X 10*3/uL (140-440); RBC 4.02 X 10*6/uL (4.40-5.60); RDW 13.4 % (11.5-14.5); WBC 12.50 X 10*3/uL (4.50-10.00)
--- NOTE | 2025-02-16 12:27 | P.PN ---
Subjective Progress Note Date: 02/16/25 Patient is a 59-year-old male with past medical history significant for COPD, former heavy tobacco use, former alcohol abuse, remote oral cancer with previous reconstructive surgery. More recently, diagnosed with metastatic gastroesophageal cancer approximately 3 years ago. Status post chemoradiation, currently maintained on Keytruda. His oncologist is Dr. Rios. He has chronic dysphagia and has a PEG tube. Still has oral intake. Patient brought in by EMS early this morning. He had significant shortness of breath. Reportedly, released from [facility] approximately 1-1/2 weeks ago with bilateral pneumonia. He finished his antibiotics outpatient. Also, diagnosed with pulmonary embolism and started on Eliquis. Workup in the emergency department including a chest CT angiogram which did not show any evidence of pulmonary embolism. There is extensive bilateral airspace consolidation concerning for multilobar pneumonia. Chronic underlying appearance with bronchiectasis concerning for underlying lung scarring and probable post- treatment changes. No prior imaging available for comparison. CBC: WBC count 11.18, hemoglobin 14.2, platelets 224. CMP: Sodium 132, potassium 4.1, chloride 96, serum bicarb 26, BUN 21, creatinine 0.54, glucose 112. Lactic 2.7 down to 1.8. LFTs unremarkable. Troponin less than 0.012. NT proBNP 303. Patient currently being evaluated emergency department. Nontoxic appearance. States that shortness of breath developed in the last 24 hours. No significant coughing. No significant sputum production or hemoptysis. No fevers or chills. He has chronic issues with dysphagia. Has PEG tube, but still has oral intake. He has been started empirically on Levaquin and Zosyn in the ED. Nonlocalized chest pain. No palpitations, syncopal events, lower extremity edema. Normal saline infusing at 100 mL/h. Current vital signs: Temperature 99.4 F, heart rate 92 bpm, blood pressure 136/89 mmHg, nontachypneic, SpO2 recorded at 97% on 4 L/min nasal cannula. 02/05/2025, the patient is clinically unchanged. We reviewed the CAT scan of the chest and compared to the earlier CAT scans that was done at [facility]. Discussed the case also with his oncologist and the patient will need a bronchoscopy and transbronchial biopsies and transbronchial needle aspirate of subcarinal lymph node. The patient is afebrile. White cell count 11.7. Hemoglobin 9.4. Electrolytes all within normal limits. Procalcitonin level is 0.15. Remains on broad-spectrum antibiotics to IV Zosyn. Remains on IV fluids. Coagulations currently on hold in preparation for bronchoscopy to be done in a.m. He remains on 4 L of oxygen by nasal cannula with a pulse ox of 98%. 02/06/2025, clinically unchanged The patient was taken off anticoagulation. Bronchoscopy is to be done tomorrow morning. Meanwhile, he remains on IV Zosyn. Oxygenation remains unchanged and the patient remains on O2 at 3 L with a pulse ox of 93%. Afebrile. Hemodynamically stable. White cell count at 9.1 with a hemoglobin 11.1 and a platelet count of 180. BUN is 7 with a creatinine of 0.6. Sodium levels at 137. Blood culture has been negative. On 02/07/2025, the patient is being seen for a follow-up. Overall condition is essentially unchanged. He remains on oxygen and currently is on 60s of oxygen nasal cannula with a pulse ox of 97%. Bronchoscopy was performed today. I performed transbronchial biopsy of the right upper lobe. In addition, I perf ormed endobronchial ultrasound and transbronchial needle aspirate of subcarinal lymph node endobronchial lavage of the right upper lobe. Post bronchoscopy chest x-ray showed similar multifocal airspace disease. No evidence of any complication or pneumothorax postprocedure. Noted, the patient anticoagulation can be resumed following the procedure. Patient otherwise doing well. No new complaints. Remains on IV Zosyn. Will go ahead and add IV Solu-Medrol in addition. The white cell count is at 9.1 with a hemoglobin 11.1 and a platelet count of 180. Legionella urine antigen was negative. Electrolytes all within normal limits. Blood cultures been negative. The procalcitonin level is at 0.15. On today's evaluation of 02/08/2025, the patient is being seen for a follow-up. Resting comfortably in bed. Continues to have a cough. Bronchoscopy was completed yesterday without any complications. Bronchoalveolar lavage of the right upper lobe was done. In addition to that, the patient had transbronchial biopsy of the right upper lobe and endobronchial ultrasound and biopsy of the s ubcarinal lymph node. Results of the BAL are still pending. The patient is currently on IV Zosyn. The patient is also on IV Solu-Medrol 40 mg every 6 hours. Labs from today shows a white cell count of 7.3 with a hemoglobin of 10.8. BUN is 9 with a creatinine of 0.4 and a sodium level at 141. Will be following up on the patient's biopsy results. He remains on 40 of oxygen by nasal cannula. Anticoagulation was resumed. The patient is also receiving enteral feeding for nutritional support. The patient is seen today February 09, 2025 in follow-up on the regular medical floor. He is currently sitting up in bed. Awake and alert in no acute distress. Maintaining O2 saturations in the 90s on 6 L/min per nasal cannula. He has a productive cough of clear phlegm. He is dyspneic with conversation. Dyspneic with minimal exertion. He remains on Zosyn. He has been nourished with Jevity 1.5 at 70 mL/h. Bronchoalveolar lavage cultures revealed no growth. Biopsy is pending. Sputum culture revealed Lee Ann. Blood culture revealed no growth. White count 10.7. Hemoglobin 10.1. Platelets 245. Sodium 143. Potassium 4.1. Bicarb 26. BUN 12. Creatinine 0.6. Glucose 195. He remains on bronchodilators. Remains on Solu-Medrol. Morphine for pain control. Normal saline at 100 mL/h. Plan is to resume his Eliquis today. The patient is seen today February 10, 2025 in follow-up on the regular medical floor. He is awake and alert in no acute distress. Sitting up in bed having breakfast. Tolerating soft foods. Continues to be nourished with Jevity at 70 mL/h. He states he is breathing easier today compared to yesterday. He appears more comfortable. Less dyspnea with conversation. Less dyspnea with exertion. Still requiring 5 L high flow nasal cannula to maintain O2 saturation in the low 90s. He has been afebrile. Hemodynamically stable. Bronchial wash cultures revealed no growth. Blood culture revealed no growth. Sputum culture with Lee Ann. Abdominal wound culture with Lee Ann albicans. No new labs today. He remains on albuterol as needed. Continued on Solu-Medrol. Continued on Zosyn. Anticoagulated with Eliquis. Continued on his anxiety/depression medications. The patient is seen today February 11, 2025 in follow-up on the regular medical floor. He is currently sitting up in bed. Awake and alert in no acute distress. Feeling better today compared to yesterday. Not quite back to his baseline. Still with some dyspnea on minimal exertion. Currently maintaining good O2 saturations in the mid 90s on 5 L high flow nasal cannula. He is afebri le. Hemodynamically stable. Chest x-ray shows extensive bilateral airspace disease with some slight improvement. Bronchial wash cultures revealed no growth. Transbronchial biopsies were nondiagnostic. White count 11.8. Hemoglobin 11.0. Platelets 279. Sodium 139. Potassium 4.2. Bicarb 29. BUN 14. Creatinine 0.6. Glucose 200. He remains on DuoNeb inhalations, IV Solu- Medrol. Antibiotics in the form of Zosyn. Continued on Eliquis. He is being nourished with Jevity at 70 mL/h. The patient is seen today February 12, 2025 in follow-up on the regular medical floor. He is awake and alert in no acute distress. Sitting up in bed. Breathing easier today compared to yesterday. Maintaining O2 saturations in the 90s on 5 L/min per nasal cannula. He has been afebrile. Hemodynamically stable. Sputum culture was positive for Lee Ann. Abdominal culture from PEG tube site positive for Lee Ann albicans, Pichia kuiavzevii. White count 12.5. Hemoglobin 11.8. Platelets 303. Sodium 137. Potassium 4.6. Bicarb 34. BUN 19. Creatinine 0.51. Glucose 145. He remains on DuoNeb inhalations, IV Solu- Medrol. Antibiotics in the form of Zosyn. Anticoagulated with Eliquis. Being nourished with Jevity tube feedings at 70 mL/h. The patient is seen today February 13, 2025 for follow-up on the regular medical floor. He is awake and alert in no acute distress. Sitting up having edgardo kfast. Denies any worsening shortness of breath, cough or congestion. Less dyspnea on exertion. Maintaining good O2 saturations in the 90s on 4 L/min per nasal cannula. White count 12.5. Hemoglobin 11.8. Platelets 303. Sodium 137. Potassium 4.6. Bicarb 34. BUN 19. Creatinine 0.51. Glucose 145. He remains on DuoNeb inhalations, IV Solu-Medrol. Antibiotics in the form of Zosyn. Anticoagulated with Eliquis. Abdominal culture from PEG tube site positive for Lee Ann albicans, Pichia kudriavzevii. Sputum culture positive for Lee Ann. Infectious disease is following. He remains on Jevity at 70 mL/h for nutritional support. The patient is seen today February 14, 2025 in follow-up on the regular medical floor. He is currently sitting up in bed. Awake and alert in no acute distress. Maintaining good O2 saturations in the 90s on 4 L/min per nasal cannula. He has been afebrile. Hemodynamically stable. White count 11.5. Hemoglobin 11.0. Platelets 299. Sodium 147. Potassium 4.3. Bicarb 32. BUN 23. Creatinine 0.6. Glucose 145. He remains on DuoNeb inhalations, IV Solu- Medrol. Antibiotics in form of Zosyn. Anticoagulated with Eliquis. Remains on Jevity tube feedings at 70 mL/h for nutritional support. The patient is seen today February 15, 2025 in follow-up on the regular medical floor. He is awake and alert in no acute distress. Resting comfortably in bed. Maintaining O2 saturations in the high 90s on 4 to 5 L/min per nasal cannula. He has been afebrile. Hemodynamically stable. Still with dyspnea on exertion. Bronchial wash cultures revealed no growth. White count 12.0. Hemoglobin 10.8. Platelets 296. Sodium 135. Potassium 4.1. Bicarb 37. BUN 25. Creatinine 0.66. Glucose 104. He remains on DuoNeb and elations. Anticoagulated with Eliquis. Antibiotics in the form of Zosyn. The patient is seen today February 16, 2025 in follow-up on the regular medical floor. He is sitting up in bed. Awake and alert in no acute distress. Denies any worsening shortness of breath, cough or congestion. He is maintaining good O2 saturations in the 90s on 4 L/min per nasal cannula. He has normal saline at 20 mL/h. He is being nourished with Jevity at 70 mL/h. Anticoagulated with Eliquis. Continued on DuoNeb inhalations. Continued on a prednisone taper. White count 12.5. Hemoglobin 11.2. Platelets 300. Sodium 138. Potassium 4.3. Bicarb 31. BUN 22. Creatinine 0.7. Glucose 117. Completed Zosyn. Objective - Vital Signs Vital signs: Vital Signs Temp 98.5 F 02/16/25 06:59 Pulse 67 02/16/25 11:54 Resp 20 02/16/25 06:59 BP 146/76 02/16/25 06:59 Pulse Ox 98 02/16/25 08:17 FiO2 Intake & Output 02/15/25 02/16/25 02/16/25 18:59 06:59 18:59 Intake Total 1025 658 118 Output Total 2950 1050 Balance -1925 -392 118 Weight 76.5 kg Intake: Oral 475 658 118 Tube Feeding 550 Output: Urine 2950 1050 Other: Voiding Method External Catheter External Catheter # Bowel Movements 1 - Exam GENERAL EXAM: Awake, pleasant 59-year-old male, sitting up in bed, on 4 L high flow nasal cannula, in no apparent distress. HEAD: Normocephalic and atraumatic EYES: Normal reaction of pupils, equal size. NOSE: Clear with pink turbinates. THROAT: No erythema or exudates. NECK: No masses, no JVD. CHEST: No chest wall deformity. LUNGS: Equal air entry with bilateral scattered rhonchi. CVS: S1 and S2 normal with no audible murmur, regular rhythm. No extra heart sounds ABDOMEN: PEG tube in place, active bowel sounds, no hepatosplenomegaly, no guarding or rigidity. SPINE: No scoliosis or deformity SKIN: No rashes CENTRAL NERVOUS SYSTEM: No focal deficits, tone is normal in all 4 extremities. EXTREMITIES: There is no peripheral edema, clubbing, or cyanosis. Peripheral pulses are intact. - Labs CBC & Chem 7: 02/16/25 04:29 02/16/25 04:29 Labs: Abnormal Lab Results - Last 24 Hours (Table) 02/16/25 02/16/25 Range/Units 04:29 04:29 WBC 12.50 H (4.50-10.00) X 10*3/uL RBC 4.02 L (4.40-5.60) X 10*6/uL Hgb 11.2 L (13.0-17.0) g/dL Hct 35.5 L (39.6-50.0) % MCHC 31.5 L (32.0-37.0) g/dL Immature Gran # 0.36 H (0.00-0.04) X 10*3/uL Neutrophils # 10.24 H (1.80-7.70) X 10*3/uL Lymphocytes # 0.63 L (0.90-5.00) X 10*3/uL Monocytes # 1.21 H (0.20-1.00) X 10*3/uL Eosinophils # 0.01 L (0.04-0.35) X 10*3/uL BUN/Creatinine Ratio 32.00 H (12.00-20.00) Ratio Glucose 117 H (70-110) mg/dL Calcium 8.4 L (8.7-10.3) mg/dL Total Protein 4.6 L (6.2-8.2) g/dL Assessment and Plan Assessment: Acute hypoxemic respiratory failure, currently on 6 L/min nasal cannula, chest CT angiogram which did not show any evidence of pulmonary embolism. There is extensive bilateral airspace consolidation, concerning for multilobar pneumonia. CTA of the chest was reviewed and compared to the earlier CAT scan that was done in [facility]. There is obvious progression in the interstitial and airspace opacities upper lobes bilaterally along with some areas of scarring and bronchiectasis. In addition, there is a bulky subcarinal lymph node. Rule out any chronic/persistent infections. Rule out malignancy or progression of esophageal cancer. Rule out immunotherapy related pneumonitis although this is felt to be less likely. Post bronchoscopy on 02/07/2025 with a BAL of the right upper lobe, transbronchial biopsy of the right upper lobe, transbronchial needle aspirate of the subcarinal lymph node. Cultures revealed no growth and pathology was nondiagnostic History of metastatic esophageal cancer status post chemoradiation, currently maintained on immunotherapy with Keytruda Remote history of oral cancer with previous reconstructive surgery Chronic dysphagia, with PEG tube and being nourished with Jevity History of pulmonary embolism, anticoagulated on Eliquis Chronic obstructive pulmonary disease Hypertension Former heavy tobacco use Former alcohol abuse Anxiety/depression Plan: The patient was seen and evaluated Labs and medications reviewed Stable on 4 L nasal cannula Titrate down the FiO2 as tolerated The patient does have home oxygen Continue flutter valve Continue DuoNeb inhalations Continue Jevity tube feedings Continue Eliquis Continue prednisone taper Continued on nystatin swish and swallow Increase his activity as tolerated [facility] This patient was seen independently by the pulmonary nurse practitioner addressing pulmonary issues I have personally seen and examined the patient, performed the documentation and the assessment and plan as written. Number of minutes spent on the visit: 24 Dictation was produced using [employer] dictation software. Please excuse any grammatical, word or spelling errors.
[2025-02-16 17:05] VITALS: BMI 22.8
--- NOTE | 2025-02-16 18:51 | P.PN ---
Subjective Progress Note Date: 02/16/25 HPI: 59-year-old male known to me from his previous hospitalization at [facility] came in with complaints of shortness of breath cough without any significant sputum production. Patient had a recent pulmonary embolism followed by second hospitalization for pneumonia patient was given antibiotics and systemic steroids were discharged home. Patient appears to have had bilateral airspace consolidation and multilobar pneumonia. Patient came back here with complaints of shortness of breath. Patient does not have any fever, does have mild leukocytosis patient had a CT of the chest which showed bronchiectatic changes in the right lung with possibly mild infiltrate with air bronchogram below that. Patient was started on levofloxacin and Zosyn in the ER. Patient had a procalcitonin which is not elevated. Patient had any fever or chills. Patient had a history of esophageal cancer status post chemoradiation therapy patient is still on Keytruda. Subjective: 02/05/25: Patient seen at bedside. No significant overnight events. States his breathing is still a little labored but improving. 02/06/2025: Patient seen at bedside. No significant overnight events. Reports his breathing still is slightly difficult, states it is better than before. Patient has no other complaints or concerns this time. 02/07/2025: Patient seen at bedside. No significant overnight events. States his breathing is significantly improved after receiving bronchoscopy with biopsies this morning. Patient has no other complaints concerns at this time. 02/08/2025: Patient seen at bedside no significant overnight events, patient had bronchoscopy yesterday today patient is saying this is the best he has felt since admission. Reports that he rapidly desaturates upon exertion however f eels like he has more energy today 02/09/2025: Patient seen at bedside no significant overnight events has decreased to 5 L nasal cannula still not tolerating exertion. No other complaints at this 02/10/2025: Patient seen at bedside, still requires 5 L nasal cannula, desaturating as soon as he exerts himself otherwise improving slowly 02/11/2025: Patient seen at bedside, still requiring 5L nasal cannula, not desaturating as fast, notice himself recovering faster. 02/12/25: Patient seen at bedside no complaints still desaturating on exertion 02/13/2025: Patient seen at bedside, still not tolerating exertion, continuing to ambulate as tolerated. 02/14/2025: Patient seen at bedside. Reports persistent exertional dyspnea. States oxygen was titrated down to 4.5 L last night however unable to tolerate. Denies cough, chest pain shortness of breath on rest. 02/15/2025: Patient seen at bedside still complaining of exertional dyspnea, working with OT and feeling short of breath during bedside exercises. Otherwise no new concerns 02/16/2025: Patient seen at bedside on 4 L O2. Indicates that his O2 sats dropped down to the high 70s when he moved to the side of the bed. Shares that he thinks her swelling in his upper extremities has gotten better since yesterday. denies any cough or pain. No other acute concerns overnight. Pertinent positives and negatives discussed above, a complete review of systems was preformed and all the other sytems were negative. Vitals Signs Reviewed. All stable and within normal limits. GENERAL: The patient is alert and oriented x3, not in any acute distress. Well developed, well nourished. HEENT: Pupils are round and equally reacting to light. EOMI. No scleral icterus. No conjunctival pallor. Normocephalic, atraumatic. No pharyngeal erythema. No thyromegaly. CARDIOVASCULAR: S1 and S2 present. No murmurs, rubs, or gallops. PULMONARY: Scattered rhonchi bilaterally. ABDOMEN: Soft, nontender, nondistended, normoactive bowel sounds. MUSCULOSKELETAL: Bilateral upper extremity swelling consistent with nonpitting edema EXTREMITIES: No cyanosis, clubbing, or pedal edema. NEUROLOGICAL: Gross neurological examination did not reveal any focal deficits. SKIN: No rashes. Imaging: No new imaging. Labs: WBC 12.5, Hgb 11.2, creatinine 0.7, BUN 22.4, - BAL cultures negative so far Assessment and plan #Acute hypoxic respiratory failure requiring 4 L of oxygen: Patient has bronchiectasis and possibly radiation induced lung damage rather than pneumonia. Patient has mild airspace consolidation probably from his previous pneumonia. -Status post bronchoscopy with biopsies. - On 4 L nasal cannula titrate down as tolerated - Repeat chest x-ray today Increase activity as tolerated - plan for DC to subacute rehab tomorrow. - Continue Eliquis -Completed Zosyn #Metastatic esophageal cancer status post chemoradiation therapy presently on immunotherapy with Keytruda - Mild leukocytosis can be reactive or can be secondary to pneumonia or bronchiectasis - COPD without any significant acute exacerbation - Hypertension: cont. to hold antihypertensive medication as BP has been wnl limits since admission - cleared by speech therapy for PO intake with regular diet with thin liquids while seated in upright position -Had a history of COPD and alcohol abuse which are not issues now -Recent pulmonary embolism for which patient is on Eliquis which was resumed Discontinue Solu-Medrol as per pulmonology. #Upper extremity edema Continue monitoring for worsening edema. E none N tube feedings DVT ppx: Eliquis GI ppx: None Code Status: Full code Anticipated discharge place: Subacute Rehab Anticipated discharge time: 02/17/2025 Objective - Vital Signs Vital signs: Vital Signs Temp 98.5 F 02/16/25 06:59 Pulse 62 02/16/25 08:28 Resp 20 02/16/25 06:59 BP 146/76 02/16/25 06:59 Pulse Ox 98 02/16/25 08:17 FiO2 Intake & Output 02/15/25 02/16/25 02/16/25 18:59 06:59 18:59 Intake Total 1025 658 118 Output Total 2950 1050 Balance -1925 -392 118 Weight 76.5 kg Intake: Oral 475 658 118 Tube Feeding 550 Output: Urine 2950 1050 Other: Voiding Method External Catheter External Catheter # Bowel Movements 1 - Labs CBC & Chem 7: 02/16/25 04:29 02/16/25 04:29 Labs: Abnormal Lab Results - Last 24 Hours (Table) 02/16/25 02/16/25 Range/Units 04:29 04:29 WBC 12.50 H (4.50-10.00) X 10*3/uL RBC 4.02 L (4.40-5.60) X 10*6/uL Hgb 11.2 L (13.0-17.0) g/dL Hct 35.5 L (39.6-50.0) % MCHC 31.5 L (32.0-37.0) g/dL Immature Gran # 0.36 H (0.00-0.04) X 10*3/uL Neutrophils # 10.24 H (1.80-7.70) X 10*3/uL Lymphocytes # 0.63 L (0.90-5.00) X 10*3/uL Monocytes # 1.21 H (0.20-1.00) X 10*3/uL Eosinophils # 0.01 L (0.04-0.35) X 10*3/uL BUN/Creatinine Ratio 32.00 H (12.00-20.00) Ratio Glucose 117 H (70-110) mg/dL Calcium 8.4 L (8.7-10.3) mg/dL Total Protein 4.6 L (6.2-8.2) g/dL Assessment and Plan Assessment: Attestation Attestation/ Machine Operator 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
--- NOTE | 2025-02-16 19:21 | XR ---
EXAMINATION TYPE: XR chest 1V portable DATE OF EXAM: 02/16/2025 7:14 PM COMPARISON: Chest radiographs from 02/11/2025. CLINICAL INDICATION: Male, 59 years old with history of COPD, pneumonia; [facility] TECHNIQUE: XR chest 1V portable Frontal view of the chest. FINDINGS: Lungs/Pleura: There is no evidence of pleural effusion, focal consolidation, or pneumothorax. Pulmonary vascularity: Unremarkable. Heart/mediastinum: Cardiomediastinal silhouette is unremarkable. Musculoskeletal: No acute osseous pathology. Other findings: None Lines/Tubes: [id number] projecting over the right hemithorax with distal tip at the cavoatrial junction. IMPRESSION: Stable exam with multifocal interstitial opacities with superimposed airspace opacities. [facility], , 02/16/2025 7:18 PM
--- NOTE | 2025-02-16 22:33 | P.PN ---
Subjective Progress Note Date: 02/16/25 Principal diagnosis: Reason for follow-up is PEG tube site cellulitis Patient is a 59-year-old male with a past medical history significant for COPD reflux hypertension PE history of esophageal cancer status post PEG tube placement in February 2022 patient presented to the hospital about a week ago for evaluation of increasing shortness of breath has been diagnosed with a pneumonia also noticed to have drainage from his PEG tube site prompted this consultation. On today's evaluation that is 02/16/2025, patient has been afebrile, patient is breathing slightly comfortably and is currently on 4 L nasal, oxygen patient denies having any chest pain and cough has decreased in intensity, patient denies nausea vomiting or diarrhea and no abdominal pain. Patient white count is 12.50 creatinine 0.7 Objective - Vital Signs Vital signs: Vital Signs Temp 98.1 F 02/16/25 12:14 Pulse 71 02/16/25 12:14 Resp 20 02/16/25 12:14 BP 133/77 02/16/25 12:14 Pulse Ox 95 02/16/25 12:14 FiO2 Intake & Output 02/15/25 02/16/25 02/16/25 18:59 06:59 18:59 Intake Total 1025 658 236 Output Total 2950 1050 1300 Balance -9066 -829 -0003 Weight 76.5 kg Intake: Oral 475 658 236 Tube Feeding 550 Output: Urine 2950 1050 1300 Other: Voiding Method External Catheter External Catheter External Catheter # Bowel Movements 1 - Exam GENERAL DESCRIPTION: Middle aged male lying in bed in no distress RESPIRATORY SYSTEM: Unlabored breathing , decreased breath sounds at bases HEART: S1 S2 regular rate and rhythm , ABDOMEN: Soft , no tenderness EXTREMITIES: No edema feet - Labs CBC & Chem 7: 02/16/25 04:29 02/16/25 04:29 Labs: Abnormal Lab Results - Last 24 Hours (Table) 02/16/25 02/16/25 Range/Units 04:29 04:29 WBC 12.50 H (4.50-10.00) X 10*3/uL RBC 4.02 L (4.40-5.60) X 10*6/uL Hgb 11.2 L (13.0-17.0) g/dL Hct 35.5 L (39.6-50.0) % MCHC 31.5 L (32.0-37.0) g/dL Immature Gran # 0.36 H (0.00-0.04) X 10*3/uL Neutrophils # 10.24 H (1.80-7.70) X 10*3/uL Lymphocytes # 0.63 L (0.90-5.00) X 10*3/uL Monocytes # 1.21 H (0.20-1.00) X 10*3/uL Eosinophils # 0.01 L (0.04-0.35) X 10*3/uL BUN/Creatinine Ratio 32.00 H (12.00-20.00) Ratio Glucose 117 H (70-110) mg/dL Calcium 8.4 L (8.7-10.3) mg/dL Total Protein 4.6 L (6.2-8.2) g/dL Assessment and Plan (1) Abdominal wall cellulitis Current Visit: Yes Status: Acute Code(s): L03.311 - CELLULITIS OF ABDOMINAL WALL SNOMED Code(s): 15761065 (2) Bilateral pneumonia Current Visit: Yes Status: Acute Code(s): J18.9 - PNEUMONIA, UNSPECIFIED ORGANISM SNOMED Code(s): 146843302 (3) Oral thrush Current Visit: Yes Status: Acute Code(s): B37.0 - CANDIDAL STOMATITIS SNOMED Code(s): 27454898 Plan: 1patient with initially presented hospital with increasing shortness of breath and cough did have evidence of bilateral consolidation status post bronchoscopy and lavage blood culture currently pending initial sputum with Lee Ann albicans 2patient with PEG tube site erythema and drainage more likely related to irritation from the gastric secretions with secondary bacterial cellulitis less likely but not entirely excluded .3-local culture currently growing Lee Ann albicans as well as Lee Ann krui possible GI gill patient is on SSRI contraindicating the use of Diflucan/voriconazole currently being treated nystatin cream around the PEG tube site. 4-patient with evidence of thrush for the patient continue with the nystatin swish and swallow Dictation was produced using [employer] dictation software. please excuse any grammatical, word or spelling errors. Time with Patient: Less than 30
--- NOTE | 2025-02-17 12:41 | P.PN ---
Subjective Progress Note Date: 02/17/25 Patient is a 59-year-old male with past medical history significant for COPD, former heavy tobacco use, former alcohol abuse, remote oral cancer with previous reconstructive surgery. More recently, diagnosed with metastatic gastroesophageal cancer approximately 3 years ago. Status post chemoradiation, currently maintained on Keytruda. His oncologist is Dr. Rios. He has chronic dysphagia and has a PEG tube. Still has oral intake. Patient brought in by EMS early this morning. He had significant shortness of breath. Reportedly, released from [facility] approximately 1-1/2 weeks ago with bilateral pneumonia. He finished his antibiotics outpatient. Also, diagnosed with pulmonary embolism and started on Eliquis. Workup in the emergency department including a chest CT angiogram which did not show any evidence of pulmonary embolism. There is extensive bilateral airspace consolidation concerning for multilobar pneumonia. Chronic underlying appearance with bronchiectasis concerning for underlying lung scarring and probable post- treatment changes. No prior imaging available for comparison. CBC: WBC count 11.18, hemoglobin 14.2, platelets 224. CMP: Sodium 132, potassium 4.1, chloride 96, serum bicarb 26, BUN 21, creatinine 0.54, glucose 112. Lactic 2.7 down to 1.8. LFTs unremarkable. Troponin less than 0.012. NT proBNP 303. Patient currently being evaluated emergency department. Nontoxic appearance. States that shortness of breath developed in the last 24 hours. No significant coughing. No significant sputum production or hemoptysis. No fevers or chills. He has chronic issues with dysphagia. Has PEG tube, but still has oral intake. He has been started empirically on Levaquin and Zosyn in the ED. Nonlocalized chest pain. No palpitations, syncopal events, lower extremity edema. Normal saline infusing at 100 mL/h. Current vital signs: Temperature 99.4 F, heart rate 92 bpm, blood pressure 136/89 mmHg, nontachypneic, SpO2 recorded at 97% on 4 L/min nasal cannula. 02/05/2025, the patient is clinically unchanged. We reviewed the CAT scan of the chest and compared to the earlier CAT scans that was done at [facility]. Discussed the case also with his oncologist and the patient will need a bronchoscopy and transbronchial biopsies and transbronchial needle aspirate of subcarinal lymph node. The patient is afebrile. White cell count 11.7. Hemoglobin 9.4. Electrolytes all within normal limits. Procalcitonin level is 0.15. Remains on broad-spectrum antibiotics to IV Zosyn. Remains on IV fluids. Coagulations currently on hold in preparation for bronchoscopy to be done in a.m. He remains on 4 L of oxygen by nasal cannula with a pulse ox of 98%. 02/06/2025, clinically unchanged The patient was taken off anticoagulation. Bronchoscopy is to be done tomorrow morning. Meanwhile, he remains on IV Zosyn. Oxygenation remains unchanged and the patient remains on O2 at 3 L with a pulse ox of 93%. Afebrile. Hemodynamically stable. White cell count at 9.1 with a hemoglobin 11.1 and a platelet count of 180. BUN is 7 with a creatinine of 0.6. Sodium levels at 137. Blood culture has been negative. On 02/07/2025, the patient is being seen for a follow-up. Overall condition is essentially unchanged. He remains on oxygen and currently is on 60s of oxygen nasal cannula with a pulse ox of 97%. Bronchoscopy was performed today. I performed transbronchial biopsy of the right upper lobe. In addition, I perf ormed endobronchial ultrasound and transbronchial needle aspirate of subcarinal lymph node endobronchial lavage of the right upper lobe. Post bronchoscopy chest x-ray showed similar multifocal airspace disease. No evidence of any complication or pneumothorax postprocedure. Noted, the patient anticoagulation can be resumed following the procedure. Patient otherwise doing well. No new complaints. Remains on IV Zosyn. Will go ahead and add IV Solu-Medrol in addition. The white cell count is at 9.1 with a hemoglobin 11.1 and a platelet count of 180. Legionella urine antigen was negative. Electrolytes all within normal limits. Blood cultures been negative. The procalcitonin level is at 0.15. On today's evaluation of 02/08/2025, the patient is being seen for a follow-up. Resting comfortably in bed. Continues to have a cough. Bronchoscopy was completed yesterday without any complications. Bronchoalveolar lavage of the right upper lobe was done. In addition to that, the patient had transbronchial biopsy of the right upper lobe and endobronchial ultrasound and biopsy of the s ubcarinal lymph node. Results of the BAL are still pending. The patient is currently on IV Zosyn. The patient is also on IV Solu-Medrol 40 mg every 6 hours. Labs from today shows a white cell count of 7.3 with a hemoglobin of 10.8. BUN is 9 with a creatinine of 0.4 and a sodium level at 141. Will be following up on the patient's biopsy results. He remains on 40 of oxygen by nasal cannula. Anticoagulation was resumed. The patient is also receiving enteral feeding for nutritional support. The patient is seen today February 09, 2025 in follow-up on the regular medical floor. He is currently sitting up in bed. Awake and alert in no acute distress. Maintaining O2 saturations in the 90s on 6 L/min per nasal cannula. He has a productive cough of clear phlegm. He is dyspneic with conversation. Dyspneic with minimal exertion. He remains on Zosyn. He has been nourished with Jevity 1.5 at 70 mL/h. Bronchoalveolar lavage cultures revealed no growth. Biopsy is pending. Sputum culture revealed Lee Ann. Blood culture revealed no growth. White count 10.7. Hemoglobin 10.1. Platelets 245. Sodium 143. Potassium 4.1. Bicarb 26. BUN 12. Creatinine 0.6. Glucose 195. He remains on bronchodilators. Remains on Solu-Medrol. Morphine for pain control. Normal saline at 100 mL/h. Plan is to resume his Eliquis today. The patient is seen today February 10, 2025 in follow-up on the regular medical floor. He is awake and alert in no acute distress. Sitting up in bed having breakfast. Tolerating soft foods. Continues to be nourished with Jevity at 70 mL/h. He states he is breathing easier today compared to yesterday. He appears more comfortable. Less dyspnea with conversation. Less dyspnea with exertion. Still requiring 5 L high flow nasal cannula to maintain O2 saturation in the low 90s. He has been afebrile. Hemodynamically stable. Bronchial wash cultures revealed no growth. Blood culture revealed no growth. Sputum culture with Lee Ann. Abdominal wound culture with Lee Ann albicans. No new labs today. He remains on albuterol as needed. Continued on Solu-Medrol. Continued on Zosyn. Anticoagulated with Eliquis. Continued on his anxiety/depression medications. The patient is seen today February 11, 2025 in follow-up on the regular medical floor. He is currently sitting up in bed. Awake and alert in no acute distress. Feeling better today compared to yesterday. Not quite back to his baseline. Still with some dyspnea on minimal exertion. Currently maintaining good O2 saturations in the mid 90s on 5 L high flow nasal cannula. He is afebri le. Hemodynamically stable. Chest x-ray shows extensive bilateral airspace disease with some slight improvement. Bronchial wash cultures revealed no growth. Transbronchial biopsies were nondiagnostic. White count 11.8. Hemoglobin 11.0. Platelets 279. Sodium 139. Potassium 4.2. Bicarb 29. BUN 14. Creatinine 0.6. Glucose 200. He remains on DuoNeb inhalations, IV Solu- Medrol. Antibiotics in the form of Zosyn. Continued on Eliquis. He is being nourished with Jevity at 70 mL/h. The patient is seen today February 12, 2025 in follow-up on the regular medical floor. He is awake and alert in no acute distress. Sitting up in bed. Breathing easier today compared to yesterday. Maintaining O2 saturations in the 90s on 5 L/min per nasal cannula. He has been afebrile. Hemodynamically stable. Sputum culture was positive for Lee Ann. Abdominal culture from PEG tube site positive for Lee Ann albicans, Pichia kuiavzevii. White count 12.5. Hemoglobin 11.8. Platelets 303. Sodium 137. Potassium 4.6. Bicarb 34. BUN 19. Creatinine 0.51. Glucose 145. He remains on DuoNeb inhalations, IV Solu- Medrol. Antibiotics in the form of Zosyn. Anticoagulated with Eliquis. Being nourished with Jevity tube feedings at 70 mL/h. The patient is seen today February 13, 2025 for follow-up on the regular medical floor. He is awake and alert in no acute distress. Sitting up having edgardo kfast. Denies any worsening shortness of breath, cough or congestion. Less dyspnea on exertion. Maintaining good O2 saturations in the 90s on 4 L/min per nasal cannula. White count 12.5. Hemoglobin 11.8. Platelets 303. Sodium 137. Potassium 4.6. Bicarb 34. BUN 19. Creatinine 0.51. Glucose 145. He remains on DuoNeb inhalations, IV Solu-Medrol. Antibiotics in the form of Zosyn. Anticoagulated with Eliquis. Abdominal culture from PEG tube site positive for Lee Ann albicans, Pichia kudriavzevii. Sputum culture positive for Lee Ann. Infectious disease is following. He remains on Jevity at 70 mL/h for nutritional support. The patient is seen today February 14, 2025 in follow-up on the regular medical floor. He is currently sitting up in bed. Awake and alert in no acute distress. Maintaining good O2 saturations in the 90s on 4 L/min per nasal cannula. He has been afebrile. Hemodynamically stable. White count 11.5. Hemoglobin 11.0. Platelets 299. Sodium 147. Potassium 4.3. Bicarb 32. BUN 23. Creatinine 0.6. Glucose 145. He remains on DuoNeb inhalations, IV Solu- Medrol. Antibiotics in form of Zosyn. Anticoagulated with Eliquis. Remains on Jevity tube feedings at 70 mL/h for nutritional support. The patient is seen today February 15, 2025 in follow-up on the regular medical floor. He is awake and alert in no acute distress. Resting comfortably in bed. Maintaining O2 saturations in the high 90s on 4 to 5 L/min per nasal cannula. He has been afebrile. Hemodynamically stable. Still with dyspnea on exertion. Bronchial wash cultures revealed no growth. White count 12.0. Hemoglobin 10.8. Platelets 296. Sodium 135. Potassium 4.1. Bicarb 37. BUN 25. Creatinine 0.66. Glucose 104. He remains on DuoNeb and elations. Anticoagulated with Eliquis. Antibiotics in the form of Zosyn. The patient is seen today February 16, 2025 in follow-up on the regular medical floor. He is sitting up in bed. Awake and alert in no acute distress. Denies any worsening shortness of breath, cough or congestion. He is maintaining good O2 saturations in the 90s on 4 L/min per nasal cannula. He has normal saline at 20 mL/h. He is being nourished with Jevity at 70 mL/h. Anticoagulated with Eliquis. Continued on DuoNeb inhalations. Continued on a prednisone taper. White count 12.5. Hemoglobin 11.2. Platelets 300. Sodium 138. Potassium 4.3. Bicarb 31. BUN 22. Creatinine 0.7. Glucose 117. Completed Zosyn. The patient is seen today February 17, 2025 in follow-up on the regular medical floor. He is awake and alert in no acute distress. Maintaining O2 saturations in the 90s on 3 L/min per nasal cannula. He is sitting up in bed. Denies any worsening shortness of breath, cough or congestion. Still with some dyspnea with minimal exertion. He has been nursed with [facility] at 70 mL/h. Continued on Eliquis for anticoagulation. Remains on a prednisone taper. Continued on DuoNeb inhalations. Chest x-ray continues to show multifocal interstitial opacities. No new labs today. Objective - Vital Signs Vital signs: Vital Signs Temp 98.4 F 02/17/25 07:36 Pulse 72 02/17/25 11:16 Resp 18 02/17/25 09:11 BP 146/80 02/17/25 07:36 Pulse Ox 96 02/17/25 11:07 FiO2 Intake & Output 02/16/25 02/17/25 02/17/25 18:59 06:59 18:59 Intake Total 236 1080 180 Output Total 1900 1200 Balance -1664 -120 180 Weight 76.5 kg 75 kg Intake: Oral 236 1080 180 Output: Urine 1900 1200 Other: Voiding Method External Catheter External Catheter External Catheter # Bowel Movements 1 - Exam GENERAL EXAM: Awake, alert 59-year-old male, sitting up in bed, on 3 L nasal cannula, in no apparent distress. HEAD: Normocephalic and atraumatic EYES: Normal reaction of pupils, equal size. NOSE: Clear with pink turbinates. THROAT: No erythema or exudates. NECK: No masses, no JVD. CHEST: No chest wall deformity. LUNGS: Equal air entry with bilateral scattered rhonchi. CVS: S1 and S2 normal with no audible murmur, regular rhythm. No extra heart sounds ABDOMEN: PEG tube in place, active bowel sounds, no hepatosplenomegaly, no guarding or rigidity. SPINE: No scoliosis or deformity SKIN: No rashes CENTRAL NERVOUS SYSTEM: No focal deficits, tone is normal in all 4 extremities. EXTREMITIES: There is no peripheral edema, clubbing, or cyanosis. Peripheral pulses are intact. - Labs CBC & Chem 7: 02/16/25 04:29 02/16/25 04:29 Labs: Microbiology - Last 24 Hours (Table) 02/07/25 08:50 Fungal Culture - Preliminary Bronchoalviolar Lavage - Right 02/07/25 08:50 Acid Fast Bacilli Smear - Preliminary Bronchoalviolar Lavage - Right Acid Fast Bacilli Culture - Preliminary Assessment and Plan Assessment: Acute hypoxemic respiratory failure, currently on 6 L/min nasal cannula, chest CT angiogram which did not show any evidence of pulmonary embolism. There is ex tensive bilateral airspace consolidation, concerning for multilobar pneumonia. CTA of the chest was reviewed and compared to the earlier CAT scan that was done in [facility]. There is obvious progression in the interstitial and airspace opacities upper lobes bilaterally along with some areas of scarring and bronchiectasis. In addition, there is a bulky subcarinal lymph node. Rule out any chronic/persistent infections. Rule out malignancy or progression of esophageal cancer. Rule out immunotherapy related pneumonitis although this is felt to be less likely. Post bronchoscopy on 02/07/2025 with a BAL of the right upper lobe, transbronchial biopsy of the right upper lobe, transbronchial needle aspirate of the subcarinal lymph node. Cultures revealed no growth and pathology was nondiagnostic History of metastatic esophageal cancer status post chemoradiation, currently ma intained on immunotherapy with Keytruda Remote history of oral cancer with previous reconstructive surgery Chronic dysphagia, with PEG tube and being nourished with Jevity History of pulmonary embolism, anticoagulated on Eliquis Chronic obstructive pulmonary disease Hypertension Former heavy tobacco use Former alcohol abuse Anxiety/depression Plan: The patient was seen and evaluated Chest x-ray, labs and medications reviewed Stable on 3 L nasal cannula Titrate down the FiO2 as tolerated Continue flutter valve Continue DuoNeb inhalations Continue Jevity tube feedings Continue Eliquis Continue prednisone taper Continued on nystatin swish and swallow Increase his activity as tolerated Plan is for Ra Santamaria at discharge This patient was seen independently by the pulmonary nurse practitioner addressing pulmonary issues I have personally seen and examined the patient, performed the documentation and the assessment and plan as written. Number of minutes spent on the visit: 25 Dictation was produced using [employer] TVation software. Please excuse any grammatical, word or spelling errors.
--- NOTE | 2025-02-17 16:21 | P.PN ---
Subjective Progress Note Date: 02/17/25 Principal diagnosis: Reason for follow-up is PEG tube site cellulitis Patient is a 59-year-old male with a past medical history significant for COPD reflux hypertension PE history of esophageal cancer status post PEG tube placement in February 2022 patient presented to the hospital about a week ago for evaluation of increasing shortness of breath has been diagnosed with a pneumonia also noticed to have drainage from his PEG tube site prompted this consultation. On today's evaluation that is 02/17/2025, Patient is afebrile this morning patient denies having any chest pain breathing slightly comfortably coughing decreased in intensity, the patient is currently on 4 L nasal cannula oxygen patient denies any abdominal pain no diarrhea no nausea or vomiting. No new labs were obtained today Objective - Vital Signs Vital signs: Vital Signs Temp 98.5 F 02/17/25 12:35 Pulse 80 02/17/25 16:13 Resp 18 02/17/25 12:35 BP 135/82 02/17/25 12:35 Pulse Ox 95 02/17/25 12:35 FiO2 Intake & Output 02/16/25 02/17/25 02/17/25 18:59 06:59 18:59 Intake Total 236 1080 180 Output Total 1900 1200 Balance -1664 -120 180 Weight 76.5 kg 75 kg Intake: Oral 236 1080 180 Output: Urine 1900 1200 Other: Voiding Method External Catheter External Catheter External Catheter # Bowel Movements 1 - Exam GENERAL DESCRIPTION: Middle aged male lying in bed in no distress RESPIRATORY SYSTEM: Unlabored breathing , decreased breath sounds at bases HEART: S1 S2 regular rate and rhythm , ABDOMEN: Soft , no tenderness EXTREMITIES: No edema feet - Labs CBC & Chem 7: 02/16/25 04:29 02/16/25 04:29 Labs: Microbiology - Last 24 Hours (Table) 02/07/25 08:50 Fungal Culture - Preliminary Bronchoalviolar Lavage - Right 02/07/25 08:50 Acid Fast Bacilli Smear - Preliminary Bronchoalviolar Lavage - Right Acid Fast Bacilli Culture - Preliminary Assessment and Plan (1) Abdominal wall cellulitis Current Visit: Yes Status: Acute Code(s): L03.311 - CELLULITIS OF ABDOMINAL WALL SNOMED Code(s): 56932802 (2) Bilateral pneumonia Current Visit: Yes Status: Acute Code(s): J18.9 - PNEUMONIA, UNSPECIFIED ORGANISM SNOMED Code(s): 957742275 (3) Oral thrush Current Visit: Yes Status: Acute Code(s): B37.0 - CANDIDAL STOMATITIS SNOMED Code(s): 39922344 Plan: 1patient with initially presented hospital with increasing shortness of breath and cough did have evidence of bilateral consolidation status post bronchoscopy and lavage blood culture currently pending initial sputum with Lee Ann albicans 2patient with PEG tube site erythema and drainage more likely related to irritation from the gastric secretions with secondary bacterial cellulitis less likely but not entirely excluded .3-local culture currently growing Lee Ann albicans as well as Lee Ann krui possible GI gill patient is on SSRI contraindicating the use of Diflucan/voriconazole currently being treated nystatin cream around the PEG tube site. 4-patient with evidence of thrush for the patient continue with the nystatin swish and swallow as has shown clinical improvement Dictation was produced using [employer] dictation software. please excuse any grammatical, word or spelling errors. Time with Patient: Less than 30
--- NOTE | 2025-02-17 17:06 | P.DS ---
Providers Date of admission: 02/04/25 04:45 Attending physician: Edgardo Horton Consults: 02/04/25 04:45 Consult Physician Routine Consulting Provider: Colby De La Torre Consult Reason/Comments: pna Do you want consulting provider notified?: Yes 02/09/25 11:20 Consult Physician Routine Consulting Provider: Darcy Vega Consult Reason/Comments: infected PEG tube insertion site Do you want consulting provider notified?: Already Contacted Primary care physician: [facility] Course: 59-year-old with history of oral cancer, COPD, hypertension, PEG tube, pulmonary embolism came to the ED on February 04, 2025 with a chief complaint of shortness of breath. Did not have any fever but mild leukocytosis noted. CT concerning for multilobar pneumonia. Patient was admitted for acute hypoxic respiratory failure. He was started on levofloxacin and Zosyn. After [] doses of levofloxacin was discontinued. He was continued on Zosyn for 12 days. Pulmonology was consulted. He underwent a bronchoscopy with endotracheal ultrasound and biopsy of subcarinal lymph node on 02/07/2025. With multiple doses of IV Solu-Medrol patient was able to be weaned down to 4 L nasal cannula. Symptoms have improved and vitals remained stable. In addition this disease was consulted due to abdominal wound culture that grew Lee Ann albicans, for which she began nystatin cream treatments. In addition patient's Keytruda has been held anticipation for discharge to subacute rehab. Patient is aware of this and states an understanding that he will be unable to receive Keytruda during his stay at rehab. Keytruda should be restarted at the discretion of Dr. Rios or pending discharge of patient from subacute rehab. Patient is medically stable for discharge. Final Diagnosis: # Multilobar pneumonia # Acute hypoxic respiratory failure # Metastatic esophageal cancer status post chemoradiation # Lower extremity edema # Dysphagia # Anxiety Physical examination: Vital signs reviewed General: Nontoxic, no distress, appears stated age, well-appearing Derm: Warm, dry, intact, no cyanosis Head: Atraumatic, normocephalic, symmetric Eyes: anicteric sclera Ears: Normal appearing, no external lesions, hearing intact Nose: Normal appearing, no external lesions Mouth: No lip lesion, Neck: Supple, without lesions, trachea midline Cardiovascular: S1-S2 regular, no murmur, no pedal edema Lungs: no wheezes, mild rhonchi b/l, no rales, no accessory muscle use Abdominal: Soft, non-tender to palpation, bowel sounds present Extremities: Muscle strength 5/5 in all extremities, radial pulses 2+ bilateral, Mild edema b/l UE. Neuro: Alert, oriented x 3, gross neurological examination did not reveal any focal deficits. Psych: Appropriate affect and mood Attestation I have seen and examined this patient with my resident , discussed the same with the resident/VENESSA, and agree with the dictator's assessment and plan as written Dr. Kenn leon Patient Condition at Discharge: Stable Plan - Discharge Summary Discharge Rx Participant: Yes New Discharge Prescriptions: New predniSONE See Taper PO DAILY #18 tab Nystatin 100,000 Unit/ml Susp [Mycostatin Oral Susp] 500,000 unit PO QID 14 Days #300 ml Nystatin 100,000Unit/gm Cream [Mycostatin Cream] 1 applic TOPICAL BID 14 Days #1 tub Continue buPROPion HCL [Wellbutrin XL] 300 mg PO HS MORPHINE ORAL ARIAN CONC 20mg/mL [Roxanol Oral Soln Conc 20MG/ML] 5 mg PO Q6HR PRN PRN Reason: Breakthrough Pain QUEtiapine [SEROquel] 25 mg PO HS Apixaban [Eliquis] 5 mg PO BID Morphine Sulfate [Ms Contin] 30 mg PO BID Escitalopram [Lexapro] 20 mg PO HS Bisoprolol-Hctz 10-6.25 mg [Ziac 10-6.25 MG] 1 tab PO BID ARIPiprazole [Abilify] 2 mg PO HS Morphine Sulfate ER [Ms Contin] 15 mg PO BID Discharge Medication List buPROPion HCL [Wellbutrin XL] 300 mg PO HS 01/30/14 [History] Escitalopram [Lexapro] 20 mg PO HS 04/16/23 [History] MORPHINE ORAL ARIAN CONC 20mg/mL [Roxanol Oral Soln Conc 20MG/ML] 5 mg PO Q6HR PRN 04/16/23 [History] Morphine Sulfate [Ms Contin] 30 mg PO BID 04/16/23 [History] Bisoprolol-Hctz 10-6.25 mg [Ziac 10-6.25 MG] 1 tab PO BID 09/30/24 [History] ARIPiprazole [Abilify] 2 mg PO HS 02/04/25 [History] Apixaban [Eliquis] 5 mg PO BID 02/04/25 [History] Morphine Sulfate ER [Ms Contin] 15 mg PO BID 02/04/25 [History] QUEtiapine [SEROquel] 25 mg PO HS 02/04/25 [History] Nystatin 100,000 Unit/ml Susp [Mycostatin Oral Susp] 500,000 unit PO QID 14 Days #300 ml 02/17/25 [Rx] Nystatin 100,000Unit/gm Cream [Mycostatin Cream] 1 applic TOPICAL BID 14 Days #1 tub 02/17/25 [Rx] predniSONE See Taper PO DAILY #18 tab 02/17/25 [Rx] Follow up Appointment(s)/Referral(s): Gurinder Rios [STAFF PHYSICIAN] - 1 Week Lore Sauer DO [Primary Care Provider] - 1-2 days Colby De La Torre MD [STAFF PHYSICIAN] - 1 Week Darcy Vega MD [STAFF PHYSICIAN] - 1 Week Patient Instructions/Handouts: Pneumonia (DC) Discharge Disposition: TRANSFER TO SNF/ECF
[2025-02-18 01:20] VITALS: RESP 16
[2025-02-18 07:58] VITALS: TEMP 98.6
[2025-02-18 13:40] VITALS: BP 135/81; PULSE 68
--- NOTE | 2025-02-18 14:40 | P.PN ---
Subjective Progress Note Date: 02/18/25 HPI: 59-year-old male known to me from his previous hospitalization at [facility] came in with complaints of shortness of breath cough without any significant sputum production. Patient had a recent pulmonary embolism followed by second hospitalization for pneumonia patient was given antibiotics and systemic steroids were discharged home. Patient appears to have had bilateral airspace consolidation and multilobar pneumonia. Patient came back here with complaints of shortness of breath. Patient does not have any fever, does have mild leukocytosis patient had a CT of the chest which showed bronchiectatic changes in the right lung with possibly mild infiltrate with air bronchogram below that. Patient was started on levofloxacin and Zosyn in the ER. Patient had a procalcitonin which is not elevated. Patient had any fever or chills. Patient had a history of esophageal cancer status post chemoradiation therapy patient is still on Keytruda. Subjective: 02/05/25: Patient seen at bedside. No significant overnight events. States his breathing is still a little labored but improving. 02/06/2025: Patient seen at bedside. No significant overnight events. Reports his breathing still is slightly difficult, states it is better than before. Patient has no other complaints or concerns this time. 02/07/2025: Patient seen at bedside. No significant overnight events. States his breathing is significantly improved after receiving bronchoscopy with biopsies this morning. Patient has no other complaints concerns at this time. 02/08/2025: Patient seen at bedside no significant overnight events, patient had bronchoscopy yesterday today patient is saying this is the best he has felt since admission. Reports that he rapidly desaturates upon exertion however f eels like he has more energy today 02/09/2025: Patient seen at bedside no significant overnight events has decreased to 5 L nasal cannula still not tolerating exertion. No other complaints at this 02/10/2025: Patient seen at bedside, still requires 5 L nasal cannula, desaturating as soon as he exerts himself otherwise improving slowly 02/11/2025: Patient seen at bedside, still requiring 5L nasal cannula, not desaturating as fast, notice himself recovering faster. 02/12/25: Patient seen at bedside no complaints still desaturating on exertion 02/13/2025: Patient seen at bedside, still not tolerating exertion, continuing to ambulate as tolerated. 02/14/2025: Patient seen at bedside. Reports persistent exertional dyspnea. States oxygen was titrated down to 4.5 L last night however unable to tolerate. Denies cough, chest pain shortness of breath on rest. 02/15/2025: Patient seen at bedside still complaining of exertional dyspnea, working with OT and feeling short of breath during bedside exercises. Otherwise no new concerns 02/16/2025: Patient seen at bedside on 4 L O2. Indicates that his O2 sats dropped down to the high 70s when he moved to the side of the bed. Shares that he thinks her swelling in his upper extremities has gotten better since yesterday. denies any cough or pain. No other acute concerns overnight. 02/18/2025: Patient seen at bedside. No acute concerns at this time. Just waiting on EMS to pick him up and take him [facility]. Pertinent positives and negatives discussed above, a complete review of systems was preformed and all the other sytems were negative. Vitals Signs Reviewed. All stable and within normal limits. GENERAL: The patient is alert and oriented x3, not in any acute distress. Well developed, well nourished. HEENT: Pupils are round and equally reacting to light. EOMI. No scleral icterus. No conjunctival pallor. Normocephalic, atraumatic. No pharyngeal erythema. No thyromegaly. CARDIOVASCULAR: S1 and S2 present. No murmurs, rubs, or gallops. PULMONARY: Scattered rhonchi bilaterally. ABDOMEN: Soft, nontender, nondistended, normoactive bowel sounds. MUSCULOSKELETAL: Bilateral upper extremity swelling consistent with nonpitting edema EXTREMITIES: No cyanosis, clubbing, or pedal edema. NEUROLOGICAL: Gross neurological examination did not reveal any focal deficits. SKIN: No rashes. Imaging: No new imaging. Labs: no new labs Assessment and plan #Acute hypoxic respiratory failure requiring 4 L of oxygen: Patient has bronchiectasis and possibly radiation induced lung damage rather than pneumonia. Patient has mild airspace consolidation probably from his previous pneumonia. -Status post bronchoscopy with biopsies. - On 4 L nasal cannula titrate down as tolerated - Repeat chest x-ray today Increase activity as tolerated - plan for DC to subacute rehab today - Continue Eliquis -Completed Zosyn #Metastatic esophageal cancer status post chemoradiation therapy presently on immunotherapy with Keytruda - Mild leukocytosis can be reactive or can be secondary to pneumonia or bronchi ectasis - COPD without any significant acute exacerbation - Hypertension: cont. to hold antihypertensive medication as BP has been wnl limits since admission - cleared by speech therapy for PO intake with regular diet with thin liquids while seated in upright position -Had a history of COPD and alcohol abuse which are not issues now -Recent pulmonary embolism for which patient is on Eliquis which was resumed Discontinue Solu-Medrol as per pulmonology. #Upper extremity edema Continue monitoring for worsening edema. E none N tube feedings DVT ppx: Eliquis GI ppx: None Code Status: Full code Anticipated discharge place: Subacute Rehab Anticipated discharge time: 02/18/2025 Attestation I have seen and examined this patient with my resident , discussed the same with the resident/VENESSA, and agree with the dictator's assessment and plan as written Dr. Kenn leon Objective - Vital Signs Vital signs: Vital Signs Temp 98.6 F 02/18/25 13:38 Pulse 68 02/18/25 13:38 Resp 16 02/18/25 13:38 BP 135/81 02/18/25 13:38 Pulse Ox 99 02/18/25 13:38 FiO2 Intake & Output 02/17/25 02/18/25 02/18/25 18:59 06:59 18:59 Intake Total 720 540 550 Output Total 600 1250 Balance 120 -710 550 Weight 74.5 kg Intake: Oral 720 540 Tube Feeding 550 Output: Urine 600 1250 Other: Voiding Method External Catheter External Catheter External Catheter - Labs CBC & Chem 7: 02/16/25 04:29 02/16/25 04:29
--- NOTE | 2025-02-20 19:52 | CDI ---
Documentation Clarification Form Date: 02/20/2025 07:03:01 PM From: Amna Wallace RN, CCDS Email: [email or web address] Admit Date: 02/04/2025 04:45:00 AM Patient Name: Ang Sena Visit Number: [id number] Discharge Date: 02/18/2025 01:47:00 PM ATTENTION: The Clinical Documentation Specialists (CDI) and [facility] Coding Staff appreciate your assistance in clarifying documentation. Please respond to the clarification below the line at the bottom and electronically sign. The CDI & [facility] Coding staff will review the response and follow-up if needed. Please note: Queries are made part of the Legal Health Record. If you have any questions, please contact the author of this message via ITS. Dr. Holly Multilobar pneumonia is documented in the progress notes. Additional clarification regarding the type of pneumonia is requested. History/Risk Factors: Stage 4 esophageal Ca, COPD, former smoker and recurrent pneumonia. Presents with SOB and increased O2 requirements. Admitted with multilobar pneumonia Clinical Indicators: 02/04 ED: "Acute exacerbation of chronic obstructive pulmonary disease, Bilateral pneumonia, Lobar pneumonia." 02/17 Discharge summary: "CT concerning for multilobar pneumonia. Patient was admitted for acute hypoxic respiratory failure. He was started on Levofloxacin and Zosyn. After doses of Levofloxacin was discontinued. He was continued on Zosyn for 12 days." 02/17 ID: "local culture currently growing Justice albicans as well as Justice krui possible GI gill." 02/04 WBC: 11.18 02/06 Sputum gram stain: gram positive cocci; Sputum culture: rare justice albicans, normal respiratory gill 02/04 Chest CTA: Extensive bilateral airspace consolidations, concerning for multilobar pneumonia Treatment: s/p BAL 02/07; IV Solumedrol 40mg Q6H 02/08-02/14 Antibiotics: IV Levaquin 750mg x1 on 02/04; IV Zosyn 3.375gm Q8H 02/04-02/15 O2: 3-6LNC Breathing Tx: A/A QID 02/10-02/18 Please clarify the type of pneumonia, if known: [ ] Bacterial Pneumonia, specify causal organism (if known) [ ] Gram Positive Bacterial Pneumonia [ ] Candidal pneumonia [ ] Other, please specify [ ] Unable to determine MTDD
== END 2025-02-18 13:47 | DRG 166 ==
LOC: EC 00:47 → 5NMEDONC 04:45
PROVIDERS: ADMIT Hospitalist; ATTEND Hospitalist
PROC: 0BBC8ZX Excision of Right Upper Lung Lobe, Via Natural or Artificial Opening Endoscopic, Diagnostic (ICD-10-PCS; principal; 2025-02-07 08:00)
PROC: 0B9C8ZX Drainage of Right Upper Lung Lobe, Via Natural or Artificial Opening Endoscopic, Diagnostic (ICD-10-PCS; principal; 2025-02-07 08:00)
PROC: 07D78ZX Extraction of Thorax Lymphatic, Via Natural or Artificial Opening Endoscopic, Diagnostic (ICD-10-PCS; principal; 2025-02-07 08:00)
DX: J18.9 Pneumonia, unspecified organism (principal); J96.01 Acute respiratory failure with hypoxia; C16.0 Malignant neoplasm of cardia; B37.0 Candidal stomatitis; E87.1 Hypo-osmolality and hyponatremia; J47.0 Bronchiectasis with acute lower respiratory infection; K94.22 Gastrostomy infection; F32.A Depression, unspecified; I10 Essential (primary) hypertension; J44.1 Chronic obstructive pulmonary disease with (acute) exacerbation; J44.0 Chronic obstructive pulmonary disease with (acute) lower respiratory infection; L03.311 Cellulitis of abdominal wall; R13.10 Dysphagia, unspecified; F41.9 Anxiety disorder, unspecified; Z79.01 Long term (current) use of anticoagulants; Z85.01 Personal history of malignant neoplasm of esophagus; Z85.819 Personal history of malignant neoplasm of unspecified site of lip, oral cavity, and pharynx; Z86.711 Personal history of pulmonary embolism; Z92.21 Personal history of antineoplastic chemotherapy; Z87.891 Personal history of nicotine dependence
CPT/HCPCS: 31624; 31628; 31652; 36415; 71045; 71046; 71275; 80048; 80053; 83605; 83735; 83880; 84145; 84484; 85025; 85610; 85730; 87040; 87070; 87075; 87102; 87116; 87205; 87206; 87449; 87636; 88108; 88305; 93005; 94640; 94667; 94668; 94760; 96365; 96366; 96367; 99291